=== PATIENT | male | born 1975 | race Caucasian/White ===

== ENCOUNTER 2024-01-30 07:11 | Inpatient (IN) | payer OTHER, SELFPAY ==
[2024-01-30] VITALS (17 sets, daily range): BP systolic 123–153; BP diastolic 79–96; PULSE 60–133; RESP 14–28; TEMP 36.2–37.1; O2SAT 90–98; BMI 32.3; BMI 28.5
--- NOTE | ~2024-01-30 | XR_ITS ---
EXAMINATION: XR CHEST CLINICAL INFORMATION: Shortness of breath. COMPARISON: None available. TECHNIQUE: Frontal view of the chest was obtained. FINDINGS: The lungs are mildly hypoexpanded. Bilateral interstitial prominence. Hazy opacity in the right midlung. Linear streaky opacities in the left lung base. No pleural effusions or pneumothorax. The cardiac mediastinal silhouette is likely within normal limits for technique. Limited evaluation of the thoracic spine secondary to underpenetration. Otherwise no acute osseous abnormality. XR/XR chest 1V IMPRESSION: Bilateral interstitial prominence may reflect mild edema or atypical/viral infection. Hazy opacity in the right midlung may represent developing infectious or inflammatory process. Streaky linear opacities in the left lung base may relate to atelectasis. Electronically signed by: Vladimir Breen MD 01/30/2024 08:16 AM [facility]
--- NOTE | 2024-01-30 07:25 | ED_ITS ---
HPI - Nausea/Vomiting/Diarrhea General Chief complaint: Nausea/Vomiting/Diarrhea Stated complaint: VOMITTING PER EMS Time Seen by Provider: 01/30/24 07:15 Source: EMS Mode of arrival: EMS Limitations: no limitations History of Present Illness HPI Narrative: This is a 48 years old male with history of diabetes presented to emergency department with a chief complaint of nausea vomiting since yesterday. He denies any chest pain denies any fever. MD elicited complaint: nausea and vomiting Onset (ago): day(s) (1) Description of vomiting: watery Description of diarrhea: watery Associated nausea: Yes Associated abdominal pain: No Location of pain: none Pain consistency: constant Related Data Home Medications ?Medication ?Instructions ?Recorded ?Confirmed glipizide 5 mg tablet 5 mg PO BID 01/30/24 01/30/24 insulin glargine 100 unit/mL (3 18 unit subcut BEDTIME 01/30/24 01/30/24 mL) subcutaneous pen (Lantus Solostar U-100 Insulin) Allergies Allergy/AdvReac Type Severity Reaction Status Date / Time Penicillins Allergy Unknown Unknown Verified 01/30/24 07:34 Review of Systems 2 Constitutional: Constitutional: Reports no additional constitutional complaints Cardiovascular: Cardiovascular: Reports no additional cardiovascular complaints Gastrointestinal: Gastrointestinal: Reports nausea [facility] Past Medical History [facility] Narrative: Diabetes Physical Exam 2 Vital Signs: Vital Signs: Last Vital Signs Temp 97.6 F 01/30/24 12:00 Pulse 129 H 01/30/24 12:00 Resp 19 01/30/24 12:00 BP 123/86 01/30/24 12:00 Pulse Ox 98 01/30/24 12:00 O2 Del Method Room Air 01/30/24 12:00 BMI result Body Mass Index 32.3 On exam he looks in [id number] distress Const: General: alert and acute distress Nutritional Appearance: average body habitus Orientation/consciousness: patient oriented x3 HEENT: Head: Yes normal to inspection Face and sinus: Yes normal facial exam Mouth: Normal oral and palatal mucosa present Throat: Yes posterior oropharynx normal Neck: Neck: Yes normal visual inspection Resp: Effort & Inspection: tachypneic Auscultation: clear to auscultation bilaterally Cardio: Jugular venous distension: no JVD Rate: regular rate Rhythm: r egular rhythm GI: Inspection: Yes normal to inspection Palpation (GI): Soft to palpation Auscultation: normal bowel sounds Skin: General skin exam: no rashes or lesions noted Rashes: no rashes Neuro: General: patient oriented x3 Cranial nerves: Yes CN's II-XII intact bilaterally Extrem: General: Yes normal to inspection Course Reevaluation(s) Reevaluation #1: Patient presented in DKA tachycardic tachypneic with metabolic acidosis and elevated anion gap, he was resuscitated with the ringer lactate, he was placed on insulin drip, I discussed the case with the chairman ceo Dr. Menon,he was accepted to ICU Time: 09:10 Medications Administered Generic Name Dose Route Start Last Admin Trade Name Freq PRN Reason Stop Dose Admin Heparin Sodium (Porcine) 5,000 unit 01/30/24 09:00 01/30/24 09:10 Heparin Sodium,Porcine 5,000 Unit/Ml Vial SUBCUT 5,000 unit Q8H CHITO Administration Insulin Human Regular 100 unit in 100 mls @ 8 mls/hr 01/30/24 08:30 01/30/24 11:48 Myxredlin IVCONT 12 unit/hr .[id number] CHITO 12 mls/hr Titration Protocol 8 UNIT/HR Lactated Ringer's 1,000 mls @ 150 mls/hr 01/30/24 09:00 01/30/24 12:09 Lr IVCONT 150 mls/hr .Q6H40M CHITO Administration Potassium Chloride 10 meq in 100 mls @ 100 mls/hr 01/30/24 09:00 01/30/24 12:08 Potassium Chloride/H20 IV 01/30/24 12:59 100 mls/hr Q1H CHITO Administration Ondansetron HCl 4 mg 01/30/24 11:48 01/30/24 12:09 Ondansetron Hcl 4 Mg/2 Ml Vial IVPUSH 4 mg Q6H PRN Administration Nausea and Vomiting Discontinued Medications Generic Name Dose Route Start Last Admin Trade Name Freq PRN Reason Stop Dose Admin Lactated Ringer's 1,000 mls @ 999 mls/hr 01/30/24 07:30 01/30/24 09:21 Lr IV 01/30/24 08:30 Infused .Q1H1M CHITO Infusion Lactated Ringer's 1,000 mls @ 999 mls/hr 01/30/24 07:30 01/30/24 09:21 Lr IV 01/30/24 08:30 Infused .Q1H1M CHITO Infusion Lactated Ringer's 1,000 mls @ 999 mls/hr 01/30/24 09:00 01/30/24 11:08 Lr IV 01/30/24 10:00 Infused .Q1H1M CHITO Infusion Insulin Human Regular 10 unit 01/30/24 07:42 01/30/24 07:53 Insulin Regular, Human 100 Unit/Ml 10 Ml Vial IVPUSH 01/30/24 07:43 10 unit ONCE ONE Administration Potassium Chloride 60 meq 01/30/24 08:55 01/30/24 09:09 Potassium Chloride Packet 20 Meq Packet PO 01/30/24 08:56 60 meq ONCE ONE Administration Medical Decision Making Medical Decision Making [facility] Narrative: Patient is here with a chief complaint of nausea vomiting he has history of diabetes Differential Diagnosis Differential Diagnoses: The differential diagnosis associated with the presentation includes Differential diagnosis diabetes ketoacidosis/gastroenteritis/viral syndrome Admission/Observation Consideration of admission/observation: Escalation of care including admission/observation considered Consult Healthcare Provider ICU attending/EMS Lab Data [facility] Lab Attestation statement: I reviewed the patient's lab results. 01/30/24 07:29 01/30/24 07:29 Labs: Lab Results 01/30/24 01/30/24 01/30/24 Range/Units 07:18 07:29 08:44 WBC 13.8 H (4.8-10.8) X10*3/uL RBC 5.86 H (4.60-5.80) X10*6/uL Hgb 17.3 (14.0-18.0) g/dl Hct 48.7 (42.0-52.0) % MCV 83.1 (80.0-98.0) fL MCH 29.5 (27.0-33.0) pg MCHC 35.5 (31.0-36.0) g/dl RDW 12.1 (11.0-16.0) % Plt Count 290 (160-400) X10*3/uL MPV 10.8 (9.4-12.4) fL Immature Gran % (Auto) 1.7 H (0.0-0.4) % Neut % (Auto) 83.3 H (45-73) % Lymph % (Auto) 7.4 L (20-40) % [place] % (Auto) 7.3 (2-11) % Eos % (Auto) 0.0 (0-4) % Baso % (Auto) 0.3 (0-2) % Lymph # (Auto) 1.0 L (1.2-4.9) X10*3/uL [place] # (Auto) 1.0 (0.1-1.2) X10*3/uL Eos # (Auto) 0.0 (0.0-0.4) X10*3/uL Baso # (Auto) 0.0 (0.0-0.2) X10*3/uL Abs Immat Gran (auto) 0.23 H (0.00-0.03) X10*3/uL Absolute Neuts (auto) 11.5 H (2.0-8.3) x10*3/uL Absolute Nucleated RBC 0.000 (0.0-0.012) X10*3/uL Nucleated RBC % (auto) 0.0 (0.0-0.2) /100WBC Hold Blue Top SEE NOTE VBG pH VBG pCO2 VBG pO2 VBG HCO3 VBG O2 Saturation VBG Base Excess Sodium 134 L (135-145) mmol/L Potassium 3.9 (3.3-5.1) mmol/L Chloride 92 L (96-108) mmol/L Carbon Dioxide 7 L* (22-29) mmol/L Anion Gap 39 H (12-20) BUN 40 H (9-16) mg/dL Creatinine 2.34 H (0.5-1.4) mg/dL Estim Creat Clear Calc 39.8 Estimated GFR 30 POC Glucose 557 H* 506 H* (60-115) mg/dL Random Glucose 605 H* (60-115) mg/dL Calcium 10.8 H (8.4-10.2) mg/dL Total Bilirubin 0.4 (0.0-1.0) mg/dL AST 19 (5-37) U/L ALT < 6 (0-40) U/L Alkaline Phosphatase 81 (39-117) U/L Troponin I High Sens 5.8 (<3.5-35.0) ng/L Total Protein 8.2 H (6.5-8.0) g/dL Albumin 4.1 (3.5-5.0) g/dL Beta-Hydroxybutyrate 11.44 H (0.02-0.27) mmol/L 01/30/24 Range/Units 08:52 WBC (4.8-10.8) X10*3/uL RBC (4.60-5.80) X10*6/uL Hgb (14.0-18.0) g/dl Hct (42.0-52.0) % MCV (80.0-98.0) fL MCH (27.0-33.0) pg MCHC (31.0-36.0) g/dl RDW (11.0-16.0) % Plt Count (160-400) X10*3/uL MPV (9.4-12.4) fL Immature Gran % (Auto) (0.0-0.4) % Neut % (Auto) (45-73) % Lymph % (Auto) (20-40) % [place] % (Auto) (2-11) % Eos % (Auto) (0-4) % Baso % (Auto) (0-2) % Lymph # (Auto) (1.2-4.9) X10*3/uL [place] # (Auto) (0.1-1.2) X10*3/uL Eos # (Auto) (0.0-0.4) X10*3/uL Baso # (Auto) (0.0-0.2) X10*3/uL Abs Immat Gran (auto) (0.00-0.03) X10*3/uL Absolute Neuts (auto) (2.0-8.3) x10*3/uL Absolute Nucleated RBC (0.0-0.012) X10*3/uL Nucleated RBC % (auto) (0.0-0.2) /100WBC Hold Blue Top VBG pH Cancelled VBG pCO2 Cancelled VBG pO2 Cancelled VBG HCO3 Cancelled VBG O2 Saturation Cancelled VBG Base Excess Cancelled Sodium (135-145) mmol/L Potassium (3.3-5.1) mmol/L Chloride (96-108) mmol/L Carbon Dioxide (22-29) mmol/L Anion Gap (12-20) BUN (9-16) mg/dL Creatinine (0.5-1.4) mg/dL Estim Creat Clear Calc Estimated GFR POC Glucose (60-115) mg/dL Random Glucose (60-115) mg/dL Calcium (8.4-10.2) mg/dL Total Bilirubin (0.0-1.0) mg/dL AST (5-37) U/L ALT (0-40) U/L Alkaline Phosphatase (39-117) U/L Troponin I High Sens (<3.5-35.0) ng/L Total Protein (6.5-8.0) g/dL Albumin (3.5-5.0) g/dL Beta-Hydroxybutyrate (0.02-0.27) mmol/L ABG Data Attestation ABG: I personally reviewed and interpreted this ABG as follows: Interpretation: metabolic acidosis Independent Interpretation I performed an independent interpretation of an: EKG Interpretation: Sinus tachycardia rate 129 artifacts no ischemia Independent Historian Clinical information obtained from an independent historian. History obtained from or confirmed by: EMS Chronic Conditions Patient?s care impacted by: Diabetes Critical Care Time Critical Care Time Critical Care Time: Yes Total Critical Care Time: 90 Attestation: DKA requiring fluids resuscitation and Insulin drip Discharge Plan Discharge Clinical Impression: DKA (diabetic ketoacidosis) Qualifiers: Diabetes mellitus type: type 1 Diabetes mellitus complication detail: without coma Qualified Code(s): E10.10 - Type 1 diabetes mellitus with ketoacidosis without coma Patient Disposition: Admitted As Inpatient Interventions: Admission Worksheet (ED) Last Done: 01/30/24 11:19 Discharge Date/Time: 01/30/24 11:36
[2024-01-30] MEDS: Lactated Ringers 1,000 ML 999 ML IV ×3 (07:35→09:22)
[2024-01-30 07:36] LABS: MANUAL DIFF FLAG NO
[2024-01-30 07:38] LABS: Basophils Percent Auto 0.3 % (0-2); Hematocrit 48.7 % (42.0-52.0); Hemoglobin 17.3 g/dl (14.0-18.0); Imm Gran Abs Auto 0.23 X10*3/uL (0.00-0.03); Imm Gran Pct Auto 1.7 % (0.0-0.4); Lymphocytes Percent Auto 7.4 % (20-40); Mean Corpuscular HGB Conc 35.5 g/dl (31.0-36.0); Mean Corpuscular Hemoglobin 29.5 pg (27.0-33.0); Mean Corpuscular Volume 83.1 fL (80.0-98.0); Mean Platelet Volume 10.8 fL (9.4-12.4); Monocytes Percent Auto 7.3 % (2-11); Neutrophils Absolute Auto 11.5 x10*3/uL (2.0-8.3); Neutrophils Percent Auto 83.3 % (45-73); Platelet Count 290 X10*3/uL (160-400); Red Blood Count 5.86 X10*6/uL (4.60-5.80); Red Cell Distribution Width 12.1 % (11.0-16.0); White Blood Count 13.8 X10*3/uL (4.8-10.8)
[2024-01-30 07:38] LABS: Glucose, Whole Blood 557 mg/dL (60-115)
[2024-01-30] MEDS: Insulin Regular, Human 100 UNIT/ML 10 ML VIAL 10 UNIT IVPUSH (07:53)
[2024-01-30 08:02] LABS: Troponin-I High Sensitivity 5.8 ng/L (<3.5-35.0)
[2024-01-30 08:04] LABS: Alanine Aminotransferase < 6 U/L (0-40); Albumin Level 4.1 g/dL (3.5-5.0); Alkaline Phosphatase 81 U/L (39-117); Anion Gap 39 (12-20); Aspartate Amino Transferase 19 U/L (5-37); Bilirubin Total 0.4 mg/dL (0.0-1.0); Blood Urea Nitrogen 40 mg/dL (9-16); Calcium 10.8 mg/dL (8.4-10.2); Carbon Dioxide 7 mmol/L (22-29); Chloride 92 mmol/L (96-108); Creatinine Clr Calc Pharmacy 39.8; Estimated Glomerular Filt Rate 30; Glucose Random 605 mg/dL (60-115); Potassium 3.9 mmol/L (3.3-5.1); Sodium 134 mmol/L (135-145); Total Protein 8.2 g/dL (6.5-8.0)
[2024-01-30 08:48] LABS: Glucose, Whole Blood 506 mg/dL (60-115)
[2024-01-30 08:53] LABS: Beta-Hydroxybutyrate 11.44 mmol/L (0.02-0.27)
[2024-01-30] MEDS: Insulin Regular/NS 100 UNIT/100 ML PLAST..BAG 8 UNIT IVCONT (08:59)
--- NOTE | 2024-01-30 09:04 | ECG_ITS ---
Test Reason : chest pain Blood Pressure : / mmHG Vent. Rate : 129 BPM Atrial Rate : 129 BPM P-R Int : 138 ms QRS Dur : 090 ms QT Int : 306 ms P-R-T Axes : 039 030 -53 degrees QTc Int : 448 ms Sinus tachycardia T wave abnormality, consider inferolateral ischemia Abnormal ECG No previous ECGs available Referred By: Trevor Brian Electronically Signed By:Aron Puente
[2024-01-30] MEDS: Potassium Chloride Packet 20 MEQ PACKET 60 MEQ PO (09:09)
[2024-01-30] MEDS: Heparin Sodium,Porcine 5,000 UNIT/ML VIAL 5000 UNIT SUBCUT ×2 (09:10→16:22)
[2024-01-30 09:11] LABS: VBG Base Excess -16.4 mmol/L; VBG HCO3 8 mmol/L (22-26); VBG pCO2 20 mmHg; VBG pH 7.22 (7.32-7.43); VBG pO2 47 mmHg
[2024-01-30] MEDS: Potassium Chloride/H20 10 MEQ/100 ML PIGGYBACK 100 MEQ IV ×4 (09:18→14:05)
[2024-01-30 09:32] LABS: Glucose, Whole Blood 448 mg/dL (60-115)
[2024-01-30 09:51] LABS: Venous Blood Gas Refer to POC result
[2024-01-30 10:36] LABS: Glucose, Whole Blood 352 mg/dL (60-115)
--- NOTE | 2024-01-30 10:41 | PC.NURSE ---
Call placed to [facility] FARMERREJI De La Torre for RN to RN report at approx. 1020a. REJI De La Torre unable to take report at this time. Awaiting call back.
--- NOTE | 2024-01-30 11:05 | P.HPCC_ITS ---
History of Present Illness Date of Service: 01/30/24 Chief Complaint: Diabetic ketoacidosis 48-year-old gentleman with underlying history of diabetes mellitus had an upper respiratory infection over the last week presented 2D to ER complaining 2 day history of nausea and vomiting. On ER evaluation patient with metabolic acidosis with hyperglycemia, and elevated hydroxybutyrate. Started on insulin drip and admitted to intensive care unit. Review of Systems 2 Constitutional: Constitutional: Denies daytime sleepiness, Denies excessive sweating, Denies fatigue, Denies fever(s), Denies lethargy, Denies malaise, Denies night sweats, Denies snoring and Denies weight loss Eyes: Eyes: Denies blurry vision and Denies itchy eyes ENT: Denies nasal congestion, Denies post nasal drip, Denies sinus pain, Denies sinus pressure and Denies other ( Thrush) Cardiovascular: Cardiovascular: Denies chest pain, Denies pedal edema, Denies dyspnea, Denies orthopnea and Denies paroxysmal nocturnal dyspnea Respiratory: Respiratory: Denies cough, Denies hemoptysis, Denies excessive phlegm production, Denies dyspnea, Denies snoring and Reports wheezing Gastrointestinal: Gastrointestinal: Denies abdominal pain, Denies heartburn, Reports nausea and Reports vomiting Musculoskeletal: Musculoskeletal: Denies myalgias, Denies arthralgias and Denies joint swelling Integumentary/Breasts: Skin/Breast: Denies rash Neurologic: Denies memory loss and Denies seizure-like activity Psychiatric: Psychiatric: Denies abnormal sleep pattern, Denies anxiety and Denies memory loss Endocrine: Endocrine: Denies excessive sweating, Denies fatigue and Denies heat intolerance Hematologic/Lymphatic: Hematologic/Lymphatic: Denies easy bruising Allergic/Immunologic: Allergic/Immunologic: Denies itchy eyes, Denies seasonal rhinorrhea and Reports wheezing PMFSH Social History Social History Smoked in Last 30 Days: No Use of substances other than those prescribed or required for medical reasons: No Advance Directives: No Advance Directives Information Provided: Yes Do you have a plan to hurt others: No Plan Meds Allergies Allergy/AdvReac Type Severity Reaction Status Date / Time Penicillins Allergy Unknown Unknown Verified 01/30/24 07:34 Active Medications: Current Medications Heparin Sodium (Porcine) (Heparin Sodium,Porcine 5,000 Unit/Ml Vial) 5,000 unit SUBCUT Q8H [facility] Last Admin: 01/30/24 09:10 Dose: 5,000 unit Insulin Human Regular (Myxredlin) 100 unit in 100 mls @ 8 mls/hr IVCONT .[id number] [facility]; Protocol Last Admin: 01/30/24 08:59 Dose: 8 unit/hr, 8 mls/hr Dextrose (D10) 250 mls @ 750 mls/hr IV Q30M PRN PRN Reason: BG <70 Lactated Ringer's (Lr) 1,000 mls @ 150 mls/hr IVCONT .Q6H40M [facility] Potassium Chloride (Potassium Chloride/H20) 10 meq in 100 mls @ 100 mls/hr IV Q1H [facility] Stop: 01/30/24 12:59 Last Admin: 01/30/24 09:18 Dose: 100 mls/hr Home Medications ?Medication ?Instructions ?Recorded ?Confirmed ?Last Taken ?Type albuterol sulfate 90 mcg/actuation 2 puff inhalation QID 01/30/24 Unknown History aerosol inhaler azithromycin 250 mg tablet 250 mg PO DAILY 01/30/24 Unknown History benzonatate 200 mg capsule 200 mg PO TID PRN cough 01/30/24 Unknown History desloratadine 5 mg tablet 5 mg PO DAILY 01/30/24 Unknown History glipizide 5 mg tablet 5 mg PO BID 01/30/24 Unknown History insulin glargine 100 unit/mL (3 18 unit subcut BEDTIME 01/30/24 Unknown History mL) subcutaneous pen (Lantus Solostar U-100 Insulin) Physical Exam 2 Vital Signs: Vital Signs: Last Vital Signs Temp 97.2 F 01/30/24 10:25 Pulse 133 H 01/30/24 10:25 Resp 19 01/30/24 10:25 BP 136/80 01/30/24 10:25 Pulse Ox 92 01/30/24 10:25 O2 Del Method Room Air 01/30/24 10:25 BMI result Body Mass Index 32.3 Const: General: no acute distress and alert Nutritional Appearance: not obese Orientation/consciousness: Other orientation findings ( oriented) HEENT: Head: Yes atraumatic Eyes: General: appearance normal, both eyes and all related structures S clerae: sclerae normal EOM: EOMs intact bilaterally Neck: Neck: Yes supple Lymphatic: no lymphadenopathy noted Resp: Effort & Inspection: normal respiratory effort and no use of accessory muscles Auscultation: clear to auscultation bilaterally Cardio: Rate: regular rate Rhythm: regular rhythm Heart sounds: no gallops, no murmurs and no rubs Skin: General skin exam: other ( warm) Extrem: General: No clubbing, No cyanosis and No edema Results Labs 01/30/24 07:29 01/30/24 07:29 Labs: Laboratory Results - last 24 hr 01/30/24 01/30/24 01/30/24 07:18 07:29 08:44 MCV 83.1 MCH 29.5 MCHC 35.5 RDW 12.1 Plt Count 290 MPV 10.8 Immature Gran % (Auto) 1.7 H Neut % (Auto) 83.3 H Lymph % (Auto) 7.4 L [place] % (Auto) 7.3 Eos % (Auto) 0.0 Baso % (Auto) 0.3 Lymph # (Auto) 1.0 L [place] # (Auto) 1.0 Eos # (Auto) 0.0 Baso # (Auto) 0.0 Abs Immat Gran (auto) 0.23 H Absolute Neuts (auto) 11.5 H Absolute Nucleated RBC 0.000 Nucleated RBC % (auto) 0.0 Hold Blue Top SEE NOTE VBG pH VBG pCO2 VBG pO2 VBG HCO3 VBG O2 Saturation VBG Base Excess Anion Gap 39 H Estim Creat Clear Calc 39.8 Estimated GFR 30 POC Glucose 557 H* 506 H* Random Glucose 605 H* Calcium 10.8 H Total Bilirubin 0.4 AST 19 ALT < 6 Alkaline Phosphatase 81 Troponin I High Sens 5.8 Total Protein 8.2 H Albumin 4.1 Beta-Hydroxybutyrate 11.44 H 01/30/24 01/30/24 01/30/24 08:52 09:02 09:28 MCV MCH MCHC RDW Plt Count MPV Immature Gran % (Auto) Neut % (Auto) Lymph % (Auto) [place] % (Auto) Eos % (Auto) Baso % (Auto) Lymph # (Auto) [place] # (Auto) Eos # (Auto) Baso # (Auto) Abs Immat Gran (auto) Absolute Neuts (auto) Absolute Nucleated RBC Nucleated RBC % (auto) Hold Blue Top VBG pH Cancelled 7.22 L VBG pCO2 Cancelled 20 VBG pO2 Cancelled 47 VBG HCO3 Cancelled 8 L VBG O2 Saturation Cancelled 77.0 VBG Base Excess Cancelled -16.4 Anion Gap Estim Creat Clear Calc Estimated GFR POC Glucose 448 H* Random Glucose Calcium Total Bilirubin AST ALT Alkaline Phosphatase Troponin I High Sens Total Protein Albumin Beta-Hydroxybutyrate 01/30/24 10:23 MCV MCH MCHC RDW Plt Count MPV Immature Gran % (Auto) Neut % (Auto) Lymph % (Auto) [place] % (Auto) Eos % (Auto) Baso % (Auto) Lymph # (Auto) [place] # (Auto) Eos # (Auto) Baso # (Auto) Abs Immat Gran (auto) Absolute Neuts (auto) Absolute Nucleated RBC Nucleated RBC % (auto) Hold Blue Top VBG pH VBG pCO2 VBG pO2 VBG HCO3 VBG O2 Saturation VBG Base Excess Anion Gap Estim Creat Clear Calc Estimated GFR POC Glucose 352 H* Random Glucose Calcium Total Bilirubin AST ALT Alkaline Phosphatase Troponin I High Sens Total Protein Albumin Beta-Hydroxybutyrate Imaging Radiologist's Impressions: Impressions Chest X-Ray 01/30/24 07:18 IMPRESSION: Bilateral interstitial prominence may reflect mild edema or atypical/viral infection. Hazy opacity in the right midlung may represent developing infectious or inflammatory process. Streaky linear opacities in the left lung base may relate to atelectasis. Electronically signed by: Vladimir Breen MD 01/30/2024 08:16 AM [facility] [place] and Plan (1) DKA (diabetic ketoacidosis): Qualifiers: Diabetes mellitus complication detail: without coma Diabetes mellitus type: type 1 Qualified Code(s): E10.10 - Type 1 diabetes mellitus with ketoacidosis without coma Status: Acute (2) Upper respiratory infection: Status: Acute Plan Assessment: 48-year-old gentleman with underlying diabetes mellitus admitted with diabetic ketoacidosis on the background of upper respiratory infection. Plan: Neuro: No acute issues. Cardiac: No acute issues. Pulmonary: Upper respiratory infection, viral panel is pending. Renal: No acute issues. Endo: Diabetic ketoacidosis, continue to titrate off insulin drip as tolerated. GI: No acute issues. ID: No acute issues Heme/Onc: No acute issues. Psych: No acute issues. Miscellaneous: No acute issues. Prophylaxis: Heparin Diet: NPO
--- NOTE | 2024-01-30 11:27 | PHA.MEDREC ---
Addendum entered by Pastora Alan RPh 01/30/24 11:40: reviewed by [facility]. Original Note: Pharmacy Consult ? Medication Reconciliation Pharmacy has completed the medication reconciliation. Spoke to patient to confirm med list. Patient states he only took one day of the medication that was given to him on 01/26/24 Azithromycin 250 mg, Benzonate 200 mg and Deloratadine 5 mg. Patient states he was to week to take them. Patient confirmed his is only on Glipizide 5 mg and Lantus SoloStar U-100 18 units at bedtime , however he hasn't took them in over two weeks because he was to week to take them.
[2024-01-30 11:50] LABS: Glucose, Whole Blood 345 mg/dL (60-115)
[2024-01-30] MEDS: Lactated Ringers 1,000 ML 150 ML IVCONT (12:09)
[2024-01-30] MEDS: ondansetron HCL 4 MG/2 ML VIAL IVPUSH ×2 (12:09→17:22)
[2024-01-30 13:02] LABS: Glucose, Whole Blood 324 mg/dL (60-115)
[2024-01-30] MEDS: Calcium Carbonate 750 MG TAB.CHEW PO ×2 (13:57→17:08)
[2024-01-30 14:09] LABS: Glucose, Whole Blood 218 mg/dL (60-115)
[2024-01-30 14:30] LABS: Anion Gap 24 (12-20); Blood Urea Nitrogen 34 mg/dL (9-16); Calcium 10.6 mg/dL (8.4-10.2); Carbon Dioxide 13 mmol/L (22-29); Chloride 104 mmol/L (96-108); Creatinine Clr Calc Pharmacy 49.6; Estimated Glomerular Filt Rate 41; Glucose Random 266 mg/dL (60-115); Potassium 3.3 mmol/L (3.3-5.1); Sodium 138 mmol/L (135-145)
[2024-01-30 15:01] LABS: Glucose, Whole Blood 179 mg/dL (60-115)
[2024-01-30 15:06] LABS: MANUAL DIFF FLAG NO
[2024-01-30 15:10] LABS: Basophils Percent Auto 0.1 % (0-2); Hematocrit 39.6 % (42.0-52.0); Hemoglobin 14.7 g/dl (14.0-18.0); Imm Gran Abs Auto 0.11 X10*3/uL (0.00-0.03); Imm Gran Pct Auto 0.9 % (0.0-0.4); Lymphocytes Absolute Auto 0.6 X10*3/uL (1.2-4.9); Lymphocytes Percent Auto 4.9 % (20-40); Mean Corpuscular HGB Conc 37.1 g/dl (31.0-36.0); Mean Corpuscular Hemoglobin 29.8 pg (27.0-33.0); Mean Corpuscular Volume 80.3 fL (80.0-98.0); Monocytes Absolute Auto 1.1 X10*3/uL (0.1-1.2); Monocytes Percent Auto 8.2 % (2-11); Neutrophils Percent Auto 85.9 % (45-73); Platelet Count 223 X10*3/uL (160-400); Red Blood Count 4.93 X10*6/uL (4.60-5.80); Red Cell Distribution Width 11.9 % (11.0-16.0); White Blood Count 12.9 X10*3/uL (4.8-10.8)
[2024-01-30] MEDS: Dextrose 5 % and Lactated Ring 1,000 ML 150 ML IVCONT (15:51)
[2024-01-30] MEDS: Potassium Chloride ER 20 MEQ TAB.ER.PRT 60 MEQ PO (16:04)
[2024-01-30 16:06] LABS: Glucose, Whole Blood 146 mg/dL (60-115)
[2024-01-30 16:55] LABS: Glucose, Whole Blood 141 mg/dL (60-115)
--- NOTE | 2024-01-30 17:04 | PC.NURSE ---
Patient admitted to ICU, room 260, at 1140 am, for DKA. Patient vomited x 3, 200 mL +, question coffee ground vs brown bile - Dr Menon made aware of emesis color, CBC ordered to check for blood loss - results reported. Dr Menon aware of vomiting, also ordered PRN zofran - given per MAY. Some effectiveness noted, vomited x1 after receiving zofran, but otherwise resting more. Patient also given PRN antacid as well. Patient also incont of small amt gelatinous/light brown stool - full care given. HR low 130s, ST, Dr Menon aware of HR - started IV fluids when received on floor. Insulin drip running per MAY, no S/S hypoglycemia. Electrolyte labs redrawn at approx 1400, results reported to Dr Menon, ordered more potassium and changed IV fluids to D5LR now that patient blood sugar < 200 - per EMAR. Report given to Roxane MENDOZA at approx 1500.
[2024-01-30 17:35] LABS: Influenza A PCR NEGATIVE (Negative); Influenza B PCR NEGATIVE (Negative); Resp Syncy Virus RNA Qual PCR NEGATIVE (Negative); SARS COV2 PCR INHOUSE POSITIVE (Negative)
[2024-01-30 17:59] LABS: Glucose, Whole Blood 165 mg/dL (60-115)
[2024-01-30 18:54] LABS: Glucose, Whole Blood 171 mg/dL (60-115)
[2024-01-30 19:56] LABS: Glucose, Whole Blood 183 mg/dL (60-115)
[2024-01-30 20:16] LABS: MANUAL DIFF FLAG NO
[2024-01-30 20:26] LABS: Basophils Percent Auto 0.1 % (0-2); Hematocrit 35.9 % (42.0-52.0); Hemoglobin 13.3 g/dl (14.0-18.0); Imm Gran Abs Auto 0.05 X10*3/uL (0.00-0.03); Imm Gran Pct Auto 0.5 % (0.0-0.4); Lymphocytes Absolute Auto 0.7 X10*3/uL (1.2-4.9); Lymphocytes Percent Auto 6.8 % (20-40); Mean Corpuscular Hemoglobin 29.8 pg (27.0-33.0); Mean Corpuscular Volume 80.5 fL (80.0-98.0); Monocytes Absolute Auto 0.8 X10*3/uL (0.1-1.2); Monocytes Percent Auto 8.4 % (2-11); Neutrophils Percent Auto 84.2 % (45-73); Platelet Count 199 X10*3/uL (160-400); Red Blood Count 4.46 X10*6/uL (4.60-5.80); Red Cell Distribution Width 11.9 % (11.0-16.0); White Blood Count 9.5 X10*3/uL (4.8-10.8)
[2024-01-30 20:39] LABS: Anion Gap 14 (12-20); Blood Urea Nitrogen 27 mg/dL (9-16); Calcium 9.9 mg/dL (8.4-10.2); Carbon Dioxide 21 mmol/L (22-29); Chloride 107 mmol/L (96-108); Creatinine Clr Calc Pharmacy 64.1; Estimated Glomerular Filt Rate 55; Glucose Random 195 mg/dL (60-115); Magnesium 1.9 mg/dL (1.6-2.6); Phosphorus 1.4 mg/dL (2.7-4.5); Potassium 3.3 mmol/L (3.3-5.1); Sodium 139 mmol/L (135-145)
[2024-01-30 20:57] LABS: Glucose, Whole Blood 192 mg/dL (60-115)
[2024-01-30] MEDS: Potassium Phosphate/NS 15 MMOL/250 ML PLAST..BAG 62.5 MMOL IV (21:03)
[2024-01-30] MEDS: Pseudoephedrine HCL 30 MG TABLET PO (21:04)
[2024-01-30] MEDS: Insulin Regular/NS 100 UNIT/100 ML PLAST..BAG IVCONT (21:05)
[2024-01-30 21:59] LABS: Glucose, Whole Blood 172 mg/dL (60-115)
[2024-01-30] MEDS: KCl 40 mEq in 5% Dex/0.45% Sod 40 MEQ/1,000 ML IV.SOLN 150 MEQ IVCONT (21:59)
[2024-01-30] MEDS: Pantoprazole Sodium 40 MG/10 ML VIAL IVPUSH (22:00)
[2024-01-30] MEDS: Metoclopramide HCl 10 MG/2 ML VIAL IVPUSH (22:00)
[2024-01-30 23:11] LABS: Glucose, Whole Blood 170 mg/dL (60-115)
[2024-01-31] VITALS (24 sets, daily range): BP systolic 130–166; BP diastolic 78–99; PULSE 98–124; RESP 14–22; TEMP 36.6–36.9; O2SAT 90–100; BMI 28.6
[2024-01-31 01:10] LABS: Glucose, Whole Blood 137 mg/dL (60-115)
[2024-01-31 03:07] LABS: Glucose, Whole Blood 150 mg/dL (60-115)
[2024-01-31] MEDS: Dextrose 5 % and Lactated Ring 1,000 ML 150 ML IVCONT (04:50)
[2024-01-31 05:02] LABS: Glucose, Whole Blood 176 mg/dL (60-115)
[2024-01-31 05:38] LABS: VBG Base Excess 0.6 mmol/L; VBG HCO3 22 mmol/L (22-26); VBG pCO2 27 mmHg; VBG pH 7.52 (7.32-7.43); VBG pO2 66 mmHg
[2024-01-31 05:42] LABS: Venous Blood Gas Refer to POC result
[2024-01-31 06:04] LABS: MANUAL DIFF FLAG NO
[2024-01-31] MEDS: Pantoprazole Sodium 40 MG/10 ML VIAL IVPUSH ×2 (06:07→16:57)
[2024-01-31 06:08] LABS: Basophils Percent Auto 0.1 % (0-2); Hematocrit 37.2 % (42.0-52.0); Hemoglobin 13.1 g/dl (14.0-18.0); Imm Gran Abs Auto 0.04 X10*3/uL (0.00-0.03); Imm Gran Pct Auto 0.4 % (0.0-0.4); Lymphocytes Absolute Auto 0.5 X10*3/uL (1.2-4.9); Lymphocytes Percent Auto 5.7 % (20-40); Mean Corpuscular HGB Conc 35.2 g/dl (31.0-36.0); Mean Corpuscular Hemoglobin 29.2 pg (27.0-33.0); Mean Platelet Volume 10.1 fL (9.4-12.4); Monocytes Absolute Auto 0.7 X10*3/uL (0.1-1.2); Monocytes Percent Auto 6.9 % (2-11); Neutrophils Absolute Auto 8.2 x10*3/uL (2.0-8.3); Neutrophils Percent Auto 86.9 % (45-73); Platelet Count 201 X10*3/uL (160-400); Red Blood Count 4.48 X10*6/uL (4.60-5.80); White Blood Count 9.5 X10*3/uL (4.8-10.8)
[2024-01-31 06:29] LABS: Albumin Level 2.9 g/dL (3.5-5.0); Anion Gap 12 (12-20); Blood Urea Nitrogen 21 mg/dL (9-16); Calcium 9.5 mg/dL (8.4-10.2); Carbon Dioxide 21 mmol/L (22-29); Chloride 110 mmol/L (96-108); Creatinine Clr Calc Pharmacy 72.6; Estimated Glomerular Filt Rate > 60; Glucose Random 186 mg/dL (60-115); Magnesium 1.9 mg/dL (1.6-2.6); Phosphorus 1.3 mg/dL (2.7-4.5); Potassium 3.5 mmol/L (3.3-5.1); Sodium 139 mmol/L (135-145)
[2024-01-31] MEDS: Insulin Glargine,Hum.rec.anlog 100 UNIT/ML 10 ML VIAL 18 UNIT SUBCUT (06:44)
[2024-01-31 06:50] LABS: OBS Int Ctl Valid YES; OBS1 POSITIVE (NEGATIVE)
[2024-01-31 07:27] LABS: Glucose, Whole Blood 179 mg/dL (60-115)
[2024-01-31] MEDS: Albumin Human 25 % 100 ML IV ×3 (07:46→22:48)
[2024-01-31] MEDS: Potassium Phosphate/NS 15 MMOL/250 ML PLAST..BAG 62.5 MMOL IV ×2 (07:46→12:06)
--- NOTE | 2024-01-31 08:11 | P.CNGI_ITS ---
History of Present Illness Data of Consult Service Date: 01/31/24 Requesting physician: Tremayne Menon Primary Care Provider: None Physician HPI Reason for consult: anemia 48 yr old m with hx of DM who I am asked to see for assessment for anemia Patient had been SOB with dry cough for 1 week with fevers and chills. He was given erythromycin but this made no difference and he was feeling worse. He came to the hospital and was then admitted due to nausea and non bloody emesis and DKA. He was noted to be COVID positive. He also had mild anemia. He denies rectal bleeding, melena, or epistaxis, hematuria. He has never had a colonoscopy. Does not use NSAIDS or aspirin except for occasional headache. He has no abdominal pain. Review of Systems 2 Review of Systems: Constitutional : No Weight loss, No Fever, No Chills ENT/Mouth : No sore throat, No Rhinorrhea Eyes: No Swelling, No Redness Cardiovascular : No Chest Pain, + SOB, No Edema Respiratory : No Cough, No Sputum, No Wheezing Gastrointestinal : see HPI Genitourinary : NO Dysuria, No Urinary Frequency, No Hematuria, No Urgency Musculoskeletal : No joint pain, No Myalgias, No Joint Swelling Skin : No Skin Lesions, No rash Neuro : No Weakness, No Numbness, No Dizziness, No Headache Psych : No Anxiety/Panic, No Depression Heme/Lymph: No Bruising, No Lymphadenopathy Endocrine : No Polyuria, No Polydipsia All other systems reviewed and are negative. [facility] Past Medical History Medical History (Updated 01/31/24 @ 09:23 by Sha Marcano MD) Diabetes 1.5, managed as type 2 Family History Pertinent family history: no FH of CRC, ulcers Surgical History Surgical History H/O oral surgery Social History Social History Household Members: Significant Other Housing: House Do you presently have visiting nurse or other home services: No Patient Tobacco Use Status: Never used Tobacco Meds Allergies Allergy/AdvReac Type Severity Reaction Status Date / Time Penicillins Allergy Unknown Unknown Verified 01/30/24 07:34 Active Medications: Current Medications Calcium Carbonate (Calcium Carbonate 750 Mg Tab.Chew) 750 mg PO Q4H PRN PRN Reason: Heartburn Last Admin: 01/30/24 17:08 Dose: 750 mg Guaifenesin/Dextromethorphan (Guaifenesin Dm 200/20/10 Ml 10 Ml Syrup) 10 ml PO Q4H PRN PRN Reason: Cough Heparin Sodium (Porcine) (Heparin Sodium,Porcine 5,000 Unit/Ml Vial) 5,000 unit SUBCUT Q8H [facility] Last Admin: 01/31/24 00:49 Dose: Not Given Dextrose (D10) 250 mls @ 750 mls/hr IV Q30M PRN PRN Reason: BG <70 Potassium Phosphate (Kphos) 15 mmol in 250 mls @ 62.5 mls/hr IV Q4H [facility] Stop: 01/31/24 15:59 Last Admin: 01/31/24 07:46 Dose: 62.5 mls/hr Albumin Human (Kedbumin 25 %) 100 mls @ 100 mls/hr IV Q6H [facility] Stop: 02/01/24 02:59 Last Admin: 01/31/24 07:46 Dose: 100 mls/hr Insulin Human Lispro (Insulin Lispro 100 Unit/Ml 3 Ml Vial) 0 unit SUBCUT QIDACHS [facility]; Protocol Ondansetron HCl (Ondansetron Hcl 4 Mg/2 Ml Vial) 4 mg IVPUSH Q6H PRN PRN Reason: Nausea and Vomiting Last Admin: 01/30/24 17:22 Dose: 4 mg Pantoprazole Sodium (Pantoprazole Sodium 40 Mg/10 Ml Vial) 40 mg IVPUSH BID@0630,1630 [facility] Last Admin: 01/31/24 06:07 Dose: 40 mg Home Medications ?Medication ?Instructions ?Recorded ?Confirmed ?Last Taken ?Type glipizide 5 mg tablet 5 mg PO BID 01/30/24 01/30/24 Unknown History insulin glargine 100 unit/mL (3 18 unit subcut BEDTIME 01/30/24 01/30/24 Unknown History mL) subcutaneous pen (Lantus Solostar U-100 Insulin) Physical Exam 2 Vital Signs: Vital Signs: Last Vital Signs Temp 98.0 F 01/31/24 03:31 Pulse 117 H 01/31/24 07:00 Resp 18 01/31/24 07:00 BP 157/97 H 01/31/24 07:00 Pulse Ox 93 11/12/24 07:00 O2 Del Method Nasal Cannula 01/31/24 07:00 O2 Flow Rate 2 01/31/24 07:00 BMI result Body Mass Index 28.6 EXAM: GENERAL: The patient is well developed and nontoxic. mildly dyspnea -on oxygen VITAL SIGNS:see workflow HEENT: Nonicteric sclerae, PERRLA, EOMI. Oropharynx clear. Moist mucous membranes. Conjunctivae appear well perfused. No thyroid mass. CHEST: Chest wall is nontender. HEART: Regular rate and rhythm without murmurs. LUNGS: Clear to auscultation bilaterally. ABDOMEN: Soft, positive bowel sounds, nontender, no organomegaly.no flank tenderness, small umbilical hernia noted SKIN: No rash, no excessive bruising, petechiae, or purpura. NEUROLOGIC: Cranial nerves II-XII intact without motor/sensory deficit. Psych: normal affect Results Labs 01/31/24 05:33 01/31/24 05:33 Labs: Short CBC 01/30/24 01/30/24 01/31/24 Range/Units 15:02 20:10 05:33 WBC 12.9 H 9.5 9.5 (4.8-10.8) X10*3/uL Hgb 14.7 13.3 L 13.1 L (14.0-18.0) g/dl Hct 39.6 L 35.9 L 37.2 L (42.0-52.0) % Plt Count 223 199 201 (160-400) X10*3/uL BMP 01/30/24 01/30/24 01/31/24 13:59 20:10 05:33 Sodium 138 139 139 Potassium 3.3 3.3 3.5 Chloride 104 107 110 H Carbon Dioxide 13 L 21 L 21 L BUN 34 H 27 H 21 H Creatinine 1.77 H 1.37 1.21 Calcium 10.6 H 9.9 D 9.5 Liver Function 01/30/24 01/31/24 Range/Units 20:10 05:33 Albumin 3.0 L 2.9 L (3.5-5.0) g/dL Imaging Chest x-ray: Attestation: I personally reviewed and interpreted this imaging study as follows: (mild interstitial prominences ) Assessment and Plan (1) Anemia: Qualifiers: Anemia type: unspecified type Qualified Code(s): D64.9 - Anemia, unspecified Status: Acute Plan 1/ Anemia, no overt bleeding, suspect the first few HGB numbers were due to dehydration and hemoconcentration, now seems stable. COVID positive. PLAN: 1/ If no overt GIB then can cont to monitor, and early u/p EGD, colonoscopy once he recovers from the covid 2/ check iron, b12, folate Procedures Date of Service Date of Service: 01/31/24
[2024-01-31] MEDS: Insulin Lispro 100 UNIT/ML 3 ML VIAL SUBCUT ×4 (08:24→22:48)
[2024-01-31] MEDS: Acetaminophen 325 MG TABLET 650 MG PO (08:34)
--- NOTE | 2024-01-31 10:06 | PM.CCPN ---
Subjective Subjective Date of Service: 01/31/24 Interval History: 48-year-old gentleman with underlying history of diabetes mellitus had an upper respiratory infection over the last week presented 2D to ER complaining 2 day history of nausea and vomiting. On ER evaluation patient with metabolic acidosis with hyperglycemia, and elevated hydroxybutyrate. Started on insulin drip and admitted to intensive care unit. Also noted to be COVID-19 positive. Overnight with an episode of small amount of coffee-ground emesis. Evaluated by gastroenterology service with no procedure planned. Critical Care Time (minutes): 0 Physical Exam Vital Signs: Vital Signs: Last Vital Signs Temp 98.1 F 01/31/24 08:00 Pulse 117 H 01/31/24 09:00 Resp 20 01/31/24 09:00 BP 160/97 H 01/31/24 09:00 Pulse Ox 95 01/31/24 09:00 O2 Del Method Nasal Cannula 01/31/24 09:00 O2 Flow Rate 4 01/31/24 09:00 BMI result Body Mass Index 28.6 Const: General: no acute distress, alert and awake Eyes: Sclerae: sclerae normal EOM: EOMs intact bilaterally Neck: Neck: Yes no lymphadenopathy, Yes trachea midline and Yes supple Resp: Effort & Inspection: normal respiratory effort and no respiratory distress Auscultation: clear to auscultation bilaterally Cardio: Rate: tachycardic Rhythm: regular rhythm Heart sounds: no gallops, no murmurs and no rubs GI: Palpation (GI): Soft to palpation and Other GI palpation findings present ( Nontender) Auscultation: normal bowel sounds Extrem: General: Yes no pedal edema, No clubbing and No cyanosis Objective Data Labs 01/31/24 05:33 01/31/24 05:33 Labs: Laboratory Results - last 24 hr 01/30/24 01/30/24 01/30/24 10:23 11:45 12:56 WBC RBC Hgb Hct MCV MCH MCHC RDW Plt Count MPV Immature Gran % (Auto) Neut % (Auto) Lymph % (Auto) [place] % (Auto) Eos % (Auto) Baso % (Auto) Lymph # (Auto) [place] # (Auto) Eos # (Auto) Baso # (Auto) Abs Immat Gran (auto) Absolute Neuts (auto) Absolute Nucleated RBC Nucleated RBC % (auto) Hold Purple Top VBG pH VBG pCO2 VBG pO2 VBG HCO3 VBG O2 Saturation VBG Base Excess Sodium Potassium Chloride Carbon Dioxide Anion Gap BUN Creatinine Estim Creat Clear Calc Estimated GFR POC Glucose 352 H* 345 H 324 H Random Glucose Calcium Phosphorus Magnesium Albumin Stool Occult Blood Influenza Type A (PCR) Influenza Type B (PCR) RSV RNA Qual (PCR) SARS-CoV-2 RNA (RT-PCR) 01/30/24 01/30/24 01/30/24 13:59 14:06 14:56 WBC RBC Hgb Hct MCV MCH MCHC RDW Plt Count MPV Immature Gran % (Auto) Neut % (Auto) Lymph % (Auto) [place] % (Auto) Eos % (Auto) Baso % (Auto) Lymph # (Auto) [place] # (Auto) Eos # (Auto) Baso # (Auto) Abs Immat Gran (auto) Absolute Neuts (auto) Absolute Nucleated RBC Nucleated RBC % (auto) Hold Purple Top VBG pH VBG pCO2 VBG pO2 VBG HCO3 VBG O2 Saturation VBG Base Excess Sodium 138 Potassium 3.3 Chloride 104 Carbon Dioxide 13 L Anion Gap 24 H BUN 34 H Creatinine 1.77 H Estim Creat Clear Calc 49.6 Estimated GFR 41 POC Glucose 218 H 179 H Random Glucose 266 H Calcium 10.6 H Phosphorus Magnesium Albumin Stool Occult Blood Influenza Type A (PCR) Influenza Type B (PCR) RSV RNA Qual (PCR) SARS-CoV-2 RNA (RT-PCR) 01/30/24 01/30/24 01/30/24 15:02 16:00 16:42 WBC 12.9 H RBC 4.93 Hgb 14.7 Hct 39.6 L MCV 80.3 MCH 29.8 MCHC 37.1 H RDW 11.9 Plt Count 223 MPV 10.0 Immature Gran % (Auto) 0.9 H Neut % (Auto) 85.9 H Lymph % (Auto) 4.9 L [place] % (Auto) 8.2 Eos % (Auto) 0.0 Baso % (Auto) 0.1 Lymph # (Auto) 0.6 L [place] # (Auto) 1.1 Eos # (Auto) 0.0 Baso # (Auto) 0.0 Abs Immat Gran (auto) 0.11 H Absolute Neuts (auto) 11.0 H Absolute Nucleated RBC 0.000 Nucleated RBC % (auto) 0.0 Hold Purple Top VBG pH VBG pCO2 VBG pO2 VBG HCO3 VBG O2 Saturation VBG Base Excess Sodium Potassium Chloride Carbon Dioxide Anion Gap BUN Creatinine Estim Creat Clear Calc Estimated GFR POC Glucose 146 H Random Glucose Calcium Phosphorus Magnesium Albumin Stool Occult Blood Influenza Type A (PCR) NEGATIVE Influenza Type B (PCR) NEGATIVE RSV RNA Qual (PCR) NEGATIVE SARS-CoV-2 RNA (RT-PCR) POSITIVE A 01/30/24 01/30/24 01/30/24 16:51 17:56 18:51 WBC RBC Hgb Hct MCV MCH MCHC RDW Plt Count MPV Immature Gran % (Auto) Neut % (Auto) Lymph % (Auto) [place] % (Auto) Eos % (Auto) Baso % (Auto) Lymph # (Auto) [place] # (Auto) Eos # (Auto) Baso # (Auto) Abs Immat Gran (auto) Absolute Neuts (auto) Absolute Nucleated RBC Nucleated RBC % (auto) Hold Purple Top VBG pH VBG pCO2 VBG pO2 VBG HCO3 VBG O2 Saturation VBG Base Excess Sodium Potassium Chloride Carbon Dioxide Anion Gap BUN Creatinine Estim Creat Clear Calc Estimated GFR POC Glucose 141 H 165 H 171 H Random Glucose Calcium Phosphorus Magnesium Albumin Stool Occult Blood Influenza Type A (PCR) Influenza Type B (PCR) RSV RNA Qual (PCR) SARS-CoV-2 RNA (RT-PCR) 01/30/24 01/30/24 01/30/24 19:52 20:10 20:54 WBC 9.5 RBC 4.46 L Hgb 13.3 L Hct 35.9 L MCV 80.5 MCH 29.8 MCHC 37.0 H RDW 11.9 Plt Count 199 MPV 10.0 Immature Gran % (Auto) 0.5 H Neut % (Auto) 84.2 H Lymph % (Auto) 6.8 L [place] % (Auto) 8.4 Eos % (Auto) 0.0 Baso % (Auto) 0.1 Lymph # (Auto) 0.7 L [place] # (Auto) 0.8 Eos # (Auto) 0.0 Baso # (Auto) 0.0 Abs Immat Gran (auto) 0.05 H Absolute Neuts (auto) 8.0 Absolute Nucleated RBC 0.000 Nucleated RBC % (auto) 0.0 Hold Purple Top VBG pH VBG pCO2 VBG pO2 VBG HCO3 VBG O2 Saturation VBG Base Excess Sodium 139 Potassium 3.3 Chloride 107 Carbon Dioxide 21 L Anion Gap 14 BUN 27 H Creatinine 1.37 Estim Creat Clear Calc 64.1 Estimated GFR 55 POC Glucose 183 H 192 H Random Glucose 195 H Calcium 9.9 D Phosphorus 1.4 L Magnesium 1.9 Albumin 3.0 L Stool Occult Blood Influenza Type A (PCR) Influenza Type B (PCR) RSV RNA Qual (PCR) SARS-CoV-2 RNA (RT-PCR) 01/30/24 01/30/24 01/31/24 21:55 23:07 00:55 WBC RBC Hgb Hct MCV MCH MCHC RDW Plt Count MPV Immature Gran % (Auto) Neut % (Auto) Lymph % (Auto) [place] % (Auto) Eos % (Auto) Baso % (Auto) Lymph # (Auto) [place] # (Auto) Eos # (Auto) Baso # (Auto) Abs Immat Gran (auto) Absolute Neuts (auto) Absolute Nucleated RBC Nucleated RBC % (auto) Hold Purple Top VBG pH VBG pCO2 VBG pO2 VBG HCO3 VBG O2 Saturation VBG Base Excess Sodium Potassium Chloride Carbon Dioxide Anion Gap BUN Creatinine Estim Creat Clear Calc Estimated GFR POC Glucose 172 H 170 H 137 H Random Glucose Calcium Phosphorus Magnesium Albumin Stool Occult Blood Influenza Type A (PCR) Influenza Type B (PCR) RSV RNA Qual (PCR) SARS-CoV-2 RNA (RT-PCR) 01/31/24 01/31/24 01/31/24 02:57 04:56 05:28 WBC RBC Hgb Hct MCV MCH MCHC RDW Plt Count MPV Immature Gran % (Auto) Neut % (Auto) Lymph % (Auto) [place] % (Auto) Eos % (Auto) Baso % (Auto) Lymph # (Auto) [place] # (Auto) Eos # (Auto) Baso # (Auto) Abs Immat Gran (auto) Absolute Neuts (auto) Absolute Nucleated RBC Nucleated RBC % (auto) Hold Purple Top VBG pH 7.52 H VBG pCO2 27 VBG pO2 66 VBG HCO3 22 VBG O2 Saturation 95.0 VBG Base Excess 0.6 Sodium Potassium Chloride Carbon Dioxide Anion Gap BUN Creatinine Estim Creat Clear Calc Estimated GFR POC Glucose 150 H 176 H Random Glucose Calcium Phosphorus Magnesium Albumin Stool Occult Blood Influenza Type A (PCR) Influenza Type B (PCR) RSV RNA Qual (PCR) SARS-CoV-2 RNA (RT-PCR) 01/31/24 01/31/24 01/31/24 05:33 06:32 07:24 WBC 9.5 RBC 4.48 L Hgb 13.1 L Hct 37.2 L MCV 83.0 MCH 29.2 MCHC 35.2 RDW 12.0 Plt Count 201 MPV 10.1 Immature Gran % (Auto) 0.4 Neut % (Auto) 86.9 H Lymph % (Auto) 5.7 L [place] % (Auto) 6.9 Eos % (Auto) 0.0 Baso % (Auto) 0.1 Lymph # (Auto) 0.5 L [place] # (Auto) 0.7 Eos # (Auto) 0.0 Baso # (Auto) 0.0 Abs Immat Gran (auto) 0.04 H Absolute Neuts (auto) 8.2 Absolute Nucleated RBC 0.000 Nucleated RBC % (auto) 0.0 Hold Purple Top VBG pH VBG pCO2 VBG pO2 VBG HCO3 VBG O2 Saturation VBG Base Excess Sodium 139 Potassium 3.5 Chloride 110 H Carbon Dioxide 21 L Anion Gap 12 BUN 21 H Creatinine 1.21 Estim Creat Clear Calc 72.6 Estimated GFR > 60 POC Glucose 179 H Random Glucose 186 H Calcium 9.5 Phosphorus 1.3 L Magnesium 1.9 Albumin 2.9 L Stool Occult Blood POSITIVE Influenza Type A (PCR) Influenza Type B (PCR) RSV RNA Qual (PCR) SARS-CoV-2 RNA (RT-PCR) 01/31/24 09:46 WBC RBC Hgb Hct MCV MCH MCHC RDW Plt Count MPV Immature Gran % (Auto) Neut % (Auto) Lymph % (Auto) [place] % (Auto) Eos % (Auto) Baso % (Auto) Lymph # (Auto) [place] # (Auto) Eos # (Auto) Baso # (Auto) Abs Immat Gran (auto) Absolute Neuts (auto) Absolute Nucleated RBC Nucleated RBC % (auto) Hold Purple Top SEE NOTE VBG pH VBG pCO2 VBG pO2 VBG HCO3 VBG O2 Saturation VBG Base Excess Sodium Potassium Chloride Carbon Dioxide Anion Gap BUN Creatinine Estim Creat Clear Calc Estimated GFR POC Glucose Random Glucose Calcium Phosphorus Magnesium Albumin Stool Occult Blood Influenza Type A (PCR) Influenza Type B (PCR) RSV RNA Qual (PCR) SARS-CoV-2 RNA (RT-PCR) Progress Note: A&P Assessment and plan (1) COVID-19: Status: Acute (2) DKA (diabetic ketoacidosis): Status: Acute (3) GI bleed: Status: Acute Plan Assessment: 48-year-old gentleman with underlying diabetes mellitus admitted with diabetic ketoacidosis on the background of upper respiratory infection. Plan: Neuro: No acute issues. Cardiac: No acute issues. Pulmonary: Respiratory infection due to COVID-19. Renal: No acute issues. Endo: Diabetic ketoacidosis, resolved, titrated off insulin drip. Continue subcutaneous insulin. GI: An episode of emesis of small amount of coffee-ground material. Evaluated by Gastroenterology service with no plans for intervention during this hospitalization. ID: No acute issues Heme/Onc: No acute issues. Psych: No acute issues. Miscellaneous: No acute issues. Prophylaxis: Heparin Diet: Diabetic Quality Stroke Does the patient have a stroke diagnosis?: No VTE Prior VTE?: No VTE Risk Level:: Medical - moderate - high VTE Device Contraindication: Treatment Not Indicated VTE Drug Contraindication: N/A - Med Ordered
[2024-01-31 10:28] LABS: Anion Gap 11 (12-20); Blood Urea Nitrogen 18 mg/dL (9-16); Calcium 8.9 mg/dL (8.4-10.2); Carbon Dioxide 23 mmol/L (22-29); Chloride 109 mmol/L (96-108); Creatinine Clr Calc Pharmacy 76.6; Estimated Glomerular Filt Rate > 60; Glucose Random 233 mg/dL (60-115); Potassium 3.9 mmol/L (3.3-5.1); Sodium 139 mmol/L (135-145)
[2024-01-31 11:05] LABS: Folate 5.1 ng/mL (> or = 4.0); Vitamin B12 629 pg/mL (200-900)
[2024-01-31 11:44] LABS: Glucose, Whole Blood 233 mg/dL (60-115)
[2024-01-31 11:44] LABS: Ferritin 2195 ng/mL (20-250)
--- NOTE | 2024-01-31 13:32 | MHC.CM.PN ---
Pt is independent with care needs, employed, has no services and has transportation to home. Pt will transfer to the floor for continued care.
[2024-01-31 16:26] LABS: Glucose, Whole Blood 202 mg/dL (60-115)
[2024-01-31] MEDS: Acetylcysteine 10 % 400 MG/4 ML VIAL INHALE (17:54)
[2024-01-31 22:24] LABS: Glucose, Whole Blood 206 mg/dL (60-115)
[2024-02-01] MEDS: Albumin Human 25 % 100 ML IV (02:36)
[2024-02-01 03:11] VITALS: BP 154/88; PULSE 124; RESP 18; TEMP 36.5; O2SAT 85
[2024-02-01] MEDS: Pantoprazole Sodium 40 MG/10 ML VIAL IVPUSH (05:51)
[2024-02-01 07:10] VITALS: BP 155/92; PULSE 120; RESP 20; TEMP 37.2; O2SAT 92
[2024-02-01 07:32] LABS: Glucose, Whole Blood 232 mg/dL (60-115)
[2024-02-01 08:34] LABS: Hematocrit 36.5 % (42.0-52.0); Hemoglobin 13.1 g/dl (14.0-18.0); Mean Corpuscular HGB Conc 35.9 g/dl (31.0-36.0); Mean Corpuscular Hemoglobin 29.7 pg (27.0-33.0); Mean Corpuscular Volume 82.8 fL (80.0-98.0); Mean Platelet Volume 10.1 fL (9.4-12.4); Platelet Count 184 X10*3/uL (160-400); Red Blood Count 4.41 X10*6/uL (4.60-5.80); Red Cell Distribution Width 11.9 % (11.0-16.0); White Blood Count 7.2 X10*3/uL (4.8-10.8)
[2024-02-01 08:48] LABS: Anion Gap 18 (12-20); Blood Urea Nitrogen 9 mg/dL (9-16); Calcium 9.5 mg/dL (8.4-10.2); Carbon Dioxide 21 mmol/L (22-29); Chloride 104 mmol/L (96-108); Creatinine Clr Calc Pharmacy 104.8; Estimated Glomerular Filt Rate > 60; Glucose Random 247 mg/dL (60-115); Lactate Dehydrogenase 349 U/L (118-273); Potassium 3.4 mmol/L (3.3-5.1); Sodium 140 mmol/L (135-145)
[2024-02-01] MEDS: Insulin Lispro 100 UNIT/ML 3 ML VIAL SUBCUT ×4 (09:02→21:27)
[2024-02-01] MEDS: Calcium Carbonate 750 MG TAB.CHEW PO (09:04)
[2024-02-01] MEDS: Acetaminophen 325 MG TABLET 650 MG PO (09:04)
--- NOTE | 2024-02-01 11:16 | MHC.CM.PN ---
EMR REVIEWED, PT W/DKA ADN STEPDOWN FROM ICU, PLAN TO WEAN PT OFF O2, NO PLAN FOR DC AT THIS TIME, CM WILL CONT TO FOLLOW DC NEEDS.
[2024-02-01 11:37] LABS: Glucose, Whole Blood 215 mg/dL (60-115)
[2024-02-01 11:51] VITALS: BP 140/87; PULSE 112; RESP 20; TEMP 36.9; O2SAT 92
[2024-02-01] MEDS: guaiFENesin LA 600 MG TAB.ER.12H PO ×2 (11:52→21:27)
--- NOTE | 2024-02-01 12:10 | P.PNIM_ITS ---
Subjective Subjective Date of Service: 02/01/24 Interval History: seen and evaluated this morning feels better sugar better controlled weaning down O2 supplement tolerating more diet Review of Systems Review of Systems: Yes all other systems are reviewed and are negative Physical Exam 2 Vital Signs: Vital Signs: Last Vital Signs Temp 98.5 F 02/01/24 11:51 Pulse 112 H 02/01/24 11:51 Resp 20 02/01/24 11:51 BP 140/87 H 02/01/24 11:51 Pulse Ox 92 02/01/24 11:51 O2 Del Method Nasal Cannula 02/01/24 11:51 O2 Flow Rate 3 02/01/24 11:51 BMI result Body Mass Index 28.6 Const: Other: Constitutional : Awake, interactive, not in distress Neck : Normal inspection, Supple Cardiovascular : RRR, no JVP, no lower extremity edema Respiratory : dreased bilateral air entry at the bases, no crackles, scattered wheezes Gastrointestinal: soft, lax, Normal bowel sounds, Non tender Skin : Warm, Dry Neurological : Alert & oriented x3, No focal deficit Objective Data Active Medications Acetaminophen (Acetaminophen 325 Mg Tablet) 650 mg PO Q6H PRN PRN Reason: Headache Last Admin: 02/01/24 09:04 Dose: 650 mg Documented By: DICKOSN Calcium Carbonate (Calcium Carbonate 750 Mg Tab.Chew) 750 mg PO Q4H PRN PRN Reason: Heartburn Last Admin: 02/01/24 09:04 Dose: 750 mg Documented By: DICKSON Guaifenesin (Guaifenesin La 600 Mg Tab.Er.12h) 600 mg PO BID [facility] Last Admin: 02/01/24 11:52 Dose: 600 mg Documented By: DICKSON Guaifenesin/Dextromethorphan (Guaifenesin Dm 200/20/10 Ml 10 Ml Syrup) 10 ml PO Q4H PRN PRN Reason: Cough Dextrose (D10) 250 mls @ 750 mls/hr IV Q30M PRN PRN Reason: BG <70 Insulin Human Lispro (Insulin Lispro 100 Unit/Ml 3 Ml Vial) 0 unit SUBCUT QIDACHS [facility]; Protocol Last Admin: 02/01/24 11:53 Dose: 4 unit Documented By: DICKSON Ondansetron HCl (Ondansetron Hcl 4 Mg/2 Ml Vial) 4 mg IVPUSH Q6H PRN PRN Reason: Nausea and Vomiting Last Admin: 01/30/24 17:22 Dose: 4 mg Documented By: AUBRIE Pantoprazole Sodium (Pantoprazole Sodium 40 Mg/10 Ml Vial) 40 mg IVPUSH BID@0630,1630 [facility] Last Admin: 02/01/24 05:51 Dose: 40 mg Documented By: ACE Labs 02/01/24 08:26 02/01/24 08:26 Labs: Laboratory Results - last 24 hr 01/31/24 01/31/24 02/01/24 16:21 22:16 07:17 MCV MCH MCHC RDW Plt Count MPV Absolute Nucleated RBC Nucleated RBC % (auto) Anion Gap Estim Creat Clear Calc Estimated GFR POC Glucose 202 H 206 H 232 H Random Glucose Calcium Lactate Dehydrogenase C-Reactive Protein 02/01/24 02/01/24 08:26 11:26 MCV 82.8 MCH 29.7 MCHC 35.9 RDW 11.9 Plt Count 184 MPV 10.1 Absolute Nucleated RBC 0.000 Nucleated RBC % (auto) 0.0 Anion Gap 18 Estim Creat Clear Calc 104.8 Estimated GFR > 60 POC Glucose 215 H Random Glucose 247 H Calcium 9.5 D Lactate Dehydrogenase 349 H C-Reactive Protein 7.50 H Assessment and Plan (1) GI bleed: Status: Acute (2) COVID-19: Status: Acute (3) Acute respiratory failure with hypoxia: Status: Acute Plan A 48 years old with PMH of DM admitted for DKA to ICU found to have Covid infection and reported hematemesis incident. DKA 2/2 Diabetes mellitus resolved, now with hyperglycemia Increase Lantus to 20 units bedtime give 1 time 10 units now SSI diabetic diet Acute Hypoxic respiratory failure 2/2 Covid19 infx Start Prednisone therapy Mucinex PRN inhaler Wean O2 down as tolerated Hematemesis No drop in Hb , not recurrent could be swallowed blood normal ferritin, folate and B12 continue PPI GI input appreciated, no intervention planned now DVT PPx SCDs given hematemesis The patient will need overnight hospital stay for treatment of Covid19 w hypoxia, control Blood sugar. Quality Stroke Does the patient have a stroke diagnosis?: No VTE Prior VTE?: No VTE Risk Level:: Medical - moderate - high VTE Device Contraindication: Treatment Not Indicated VTE Drug Contraindication: N/A - Med Ordered
[2024-02-01] MEDS: Insulin Glargine,Hum.rec.anlog 100 UNIT/ML 10 ML VIAL 10 UNIT SUBCUT (12:34)
[2024-02-01] MEDS: predniSONE 20 MG TABLET 40 MG PO (12:34)
[2024-02-01 15:36] VITALS: BP 169/95; PULSE 110; RESP 20; TEMP 36.8; O2SAT 92
[2024-02-01 16:15] LABS: Glucose, Whole Blood 228 mg/dL (60-115)
[2024-02-01 16:19] VITALS: BP 148/78
[2024-02-01 19:33] VITALS: BP 161/96; PULSE 106; RESP 17; TEMP 36.3; O2SAT 95
[2024-02-01 20:37] LABS: Glucose, Whole Blood 218 mg/dL (60-115)
[2024-02-01] MEDS: Insulin Glargine,Hum.rec.anlog 100 UNIT/ML 10 ML VIAL 20 UNIT SUBCUT (21:27)
[2024-02-02] VITALS (7 sets, daily range): BP systolic 138–170; BP diastolic 79–97; PULSE 100–113; RESP 14–20; TEMP 36.1–37.2; O2SAT 2–97
[2024-02-02] MEDS: Omeprazole 20 MG CAPSULE.DR PO ×2 (05:39→16:12)
[2024-02-02 07:10] LABS: Glucose, Whole Blood 140 mg/dL (60-115)
[2024-02-02] MEDS: predniSONE 20 MG TABLET 40 MG PO (08:54)
[2024-02-02] MEDS: guaiFENesin LA 600 MG TAB.ER.12H PO ×2 (08:54→21:20)
--- NOTE | 2024-02-02 10:27 | MHC.CM.PN ---
ANT[facility] PT MAY BE MEDICALLY CLEARED LATER TODAY IF WEANED OFF O2, CM MET W/PT TO VERIFY PCP, PT REPORTS HE DOES NOT HAVE A PCP AND PT PROVIDED W/[facility] PROVIDER LIST AND INSTRUCTED TO CALL THEY DO TAKE PT'S INSURANCE, PT WILL ARRANGE PRIVATE TRANSPORT.
[2024-02-02 10:58] LABS: Glucose, Whole Blood 186 mg/dL (60-115)
[2024-02-02] MEDS: Fluconazole 100 MG TABLET 200 MG PO (11:40)
[2024-02-02] MEDS: Insulin Lispro 100 UNIT/ML 3 ML VIAL SUBCUT ×3 (11:40→21:20)
[2024-02-02] MEDS: Nystatin Oral Susp 500,000 UNIT/5 ML ORAL.SUSP 400000 UNIT BUCCAL ×3 (11:41→21:20)
--- NOTE | 2024-02-02 13:26 | P.PNIM_ITS ---
Subjective Subjective Date of Service: 02/02/24 Interval History: seen and evaluated this morning feels better , reporting sore throat and difficulties swallowing sugar better controlled weaning down O2 supplement tolerating more diet Review of Systems Review of Systems: Yes all other systems are reviewed and are negative Physical Exam 2 Vital Signs: Vital Signs: Last Vital Signs Temp 98.5 F 02/02/24 11:09 Pulse 109 H 02/02/24 11:09 Resp 20 02/02/24 11:09 BP 170/94 H 02/02/24 11:09 Pulse Ox 95 02/02/24 11:09 O2 Del Method Nasal Cannula 02/02/24 11:09 O2 Flow Rate 2 02/02/24 11:09 BMI result Body Mass Index 28.6 Const: Other: Constitutional : Awake, interactive, not in distress Neck : Normal inspection, Supple ORal: Oral thrush Cardiovascular : RRR, no JVP, no lower extremity edema Respiratory : dreased bilateral air entry at the bases, no crackles, scattered wheezes Gastrointestinal: soft, lax, Normal bowel sounds, Non tender Skin : Warm, Dry Neurological : Alert & oriented x3, No focal deficit Objective Data Active Medications Acetaminophen (Acetaminophen 325 Mg Tablet) 650 mg PO Q6H PRN PRN Reason: Headache Last Admin: 02/01/24 09:04 Dose: 650 mg Documented By: DICKSON Albuterol Sulfate (Albuterol Sulfate 90 Mcg 8 Gm Inhaler) 2 puff INHALE RQ4H PRN PRN Reason: Shortness of Breath/Wheezing Calcium Carbonate (Calcium Carbonate 750 Mg Tab.Chew) 750 mg PO Q4H PRN PRN Reason: Heartburn Last Admin: 02/01/24 09:04 Dose: 750 mg Documented By: DICKSON Fluconazole (Fluconazole 100 Mg Tablet) 100 mg PO DAILY CHITO Guaifenesin (Guaifenesin La 600 Mg Tab.Er.12h) 600 mg PO BID CHITO Last Admin: 02/02/24 08:54 Dose: 600 mg Documented By: MELISSA Guaifenesin/Dextromethorphan (Guaifenesin Dm 200/20/10 Ml 10 Ml Syrup) 10 ml PO Q4H PRN PRN Reason: Cough Dextrose (D10) 250 mls @ 750 mls/hr IV Q30M PRN PRN Reason: BG <70 Insulin Glargine (Insulin Glargine,Hum.Rec.Anlog 100 Unit/Ml 10 Ml Vial) 20 unit SUBCUT BEDTIME [facility] Last Admin: 02/01/24 21:27 Dose: 20 unit Documented By: GERMAN Insulin Human Lispro (Insulin Lispro 100 Unit/Ml 3 Ml Vial) 0 unit SUBCUT QIDACHS [facility]; Protocol Last Admin: 02/02/24 11:40 Dose: 2 unit Documented By: MELISSA Nystatin (Nystatin Oral Susp 500,000 Unit/5 Ml Oral.Susp) 400,000 unit BUCCAL QID [facility]; Protocol Last Admin: 02/02/24 11:41 Dose: 400,000 unit Documented By: MELISSA Omeprazole (Omeprazole 20 Mg Capsule.) 20 mg PO BID@0630,1630 [facility] Last Admin: 02/02/24 05:39 Dose: 20 mg Documented By: GERMAN Ondansetron HCl (Ondansetron Hcl 4 Mg/2 Ml Vial) 4 mg IVPUSH Q6H PRN PRN Reason: Nausea and Vomiting Last Admin: 01/30/24 17:22 Dose: 4 mg Documented By: AUBRIE Prednisone (Prednisone 20 Mg Tablet) 40 mg PO DAILY [facility] Last Admin: 02/02/24 08:54 Dose: 40 mg Documented By: MELISSA Labs 02/01/24 08:26 02/01/24 08:26 Labs: Laboratory Results - last 24 hr 02/01/24 02/01/24 02/02/24 16:08 20:30 07:05 POC Glucose 228 H 218 H 140 H 02/02/24 10:54 POC Glucose 186 H Assessment and Plan (1) Acute respiratory failure with hypoxia: Status: Acute (2) COVID-19: Status: Acute (3) Thrush of mouth and esophagus: Status: Acute Plan A 48 years old with PMH of DM admitted for DKA to ICU found to have Covid infection and reported hematemesis incident. Acute Hypoxic respiratory failure 2/2 Covid19 infx dropped to 80s on ambulation Start Prednisone therapy Mucinex PRN inhaler Wean O2 down as tolerated DKA 2/2 Diabetes mellitus resolved, now with hyperglycemia Increase Lantus to 20 units bedtime SSI diabetic diet Dysphagia 2/2 Oral thrush, candidal esophagitis Diflucan PO, Nystatin mouth wash Hematemesis No drop in Hb , not recurrent could be swallowed blood normal ferritin, folate and B12 continue PPI GI input appreciated, no intervention planned now DVT PPx SCDs given hematemesis The patient will need overnight hospital stay for treatment of Covid19 w hypoxia, control Blood sugar. Quality Stroke Does the patient have a stroke diagnosis?: No VTE Prior VTE?: No VTE Risk Level:: Medical - moderate - high VTE Device Contraindication: Treatment Not Indicated VTE Drug Contraindication: N/A - Med Ordered
[2024-02-02 15:32] LABS: Glucose, Whole Blood 221 mg/dL (60-115)
[2024-02-02 20:46] LABS: Glucose, Whole Blood 197 mg/dL (60-115)
[2024-02-02] MEDS: Insulin Glargine,Hum.rec.anlog 100 UNIT/ML 10 ML VIAL 20 UNIT SUBCUT (21:21)
[2024-02-03] VITALS: BP 167/98; PULSE 110; RESP 18; TEMP 36.2; O2SAT 95
[2024-02-03 04:00] VITALS: BP 152/102; PULSE 88; RESP 16; TEMP 37.2; O2SAT 92
--- NOTE | 2024-02-03 04:27 | PC.NURSE ---
BP elevated, Dr. Mercado made aware. No new orders at this time.
[2024-02-03] MEDS: Omeprazole 20 MG CAPSULE.DR PO ×2 (06:01→16:37)
[2024-02-03 07:13] LABS: Glucose, Whole Blood 198 mg/dL (60-115)
[2024-02-03 07:15] VITALS: BP 168/88; PULSE 93; RESP 20; TEMP 36.7; O2SAT 93
[2024-02-03 07:29] LABS: Hematocrit 41.5 % (42.0-52.0); Hemoglobin 14.9 g/dl (14.0-18.0); Mean Corpuscular HGB Conc 35.9 g/dl (31.0-36.0); Mean Corpuscular Hemoglobin 29.6 pg (27.0-33.0); Mean Corpuscular Volume 82.5 fL (80.0-98.0); Mean Platelet Volume 10.5 fL (9.4-12.4); Platelet Count 235 X10*3/uL (160-400); Red Blood Count 5.03 X10*6/uL (4.60-5.80); Red Cell Distribution Width 11.6 % (11.0-16.0); White Blood Count 8.6 X10*3/uL (4.8-10.8)
[2024-02-03] MEDS: Fluconazole 100 MG TABLET PO (07:54)
[2024-02-03] MEDS: guaiFENesin LA 600 MG TAB.ER.12H PO (07:54)
[2024-02-03] MEDS: Nystatin Oral Susp 500,000 UNIT/5 ML ORAL.SUSP 400000 UNIT BUCCAL ×3 (07:54→16:37)
[2024-02-03] MEDS: predniSONE 20 MG TABLET 40 MG PO (07:54)
[2024-02-03] MEDS: Insulin Lispro 100 UNIT/ML 3 ML VIAL SUBCUT ×3 (07:55→16:37)
[2024-02-03 07:59] LABS: Blood Urea Nitrogen 12 mg/dL (9-16); C Reactive Protein 3.62 mg/dL (< or = 0.50); Calcium 8.7 mg/dL (8.4-10.2); Creatinine Clr Calc Pharmacy 120.6; Estimated Glomerular Filt Rate > 60; Glucose Random 188 mg/dL (60-115); Lactate Dehydrogenase 368 U/L (118-273)
[2024-02-03] MEDS: Losartan Potassium 25 MG TABLET PO (08:00)
[2024-02-03 08:21] LABS: Anion Gap 14 (12-20); Carbon Dioxide 28 mmol/L (22-29); Chloride 98 mmol/L (96-108); Potassium 2.5 mmol/L (3.3-5.1); Sodium 137 mmol/L (135-145)
[2024-02-03] MEDS: Potassium Chloride Packet 20 MEQ PACKET 40 MEQ PO (09:14)
[2024-02-03] MEDS: Potassium Chloride/H20 10 MEQ/100 ML PIGGYBACK 100 MEQ IV ×2 (09:15→10:51)
[2024-02-03] MEDS: Potassium Chloride ER 20 MEQ TAB.ER.PRT 40 MEQ PO (10:51)
[2024-02-03 11:26] VITALS: BP 164/92; PULSE 98; RESP 20; TEMP 37.1; O2SAT 95
[2024-02-03 11:38] LABS: Glucose, Whole Blood 232 mg/dL (60-115)
--- NOTE | 2024-02-03 13:37 | PM.DS ---
DS: Providers Provider Date of Service: 02/03/24 Date of admission: 01/30/24 08:56 Date of discharge: 02/03/24 Primary care physician: None Physician Consults: 01/31/24 08:00 Consult to Gastroenterology Routine Consulting Provider: [facility] [place] G[facility]enterology Services Reason for consultation: GI bleed Has provider been notified: No DS: Diagnosis Discharge Diagnosis (1) Acute respiratory failure with hypoxia: Status: Acute (2) COVID-19: Status: Acute (3) Thrush of mouth and esophagus: Status: Acute (4) Diabetes 1.5, managed as type 2: Status: Acute (5) DKA (diabetic ketoacidosis): Status: Acute DS: Summary Hospital Course Hospital Course: Admission note HPI by ICU 48-year-old gentleman with underlying history of diabetes mellitus had an upper respiratory infection over the last week presented 2D to ER complaining 2 day history of nausea and vomiting. On ER evaluation patient with metabolic acidosis with hyperglycemia, and elevated hydroxybutyrate. Started on insulin drip and admitted to intensive care unit. Hospital course The patient was admitted for treatment of DKA in ICU. responded well to IV fluids and insulin. Transferred to medical floor. Lantus at 20 units. started SSI and will continue on that at home along with Glipizide. He was also treated for acute Hypoxic respiratory failure secondary Covid19 infection. Started Prednisone therapy, Mucinex, PRN inhaler as we Weaned O2 down to room air with good tolerance. Had Hypokalemia, responded well to IV and PO replacement. Noted to have high blood pressure. started on Losartan 25 mg daily. Reported Dysphagia and painful swallowing. noted to have Oral thrush and likely candidal esophagitis. responded well to Diflucan PO, Nystatin mouth wash Reported one incident of Hematemesis with No drop in Hb , not recurrent. normal ferritin, folate and B12. started on PPI. GI input appreciated, no intervention planned. to be discharged on Omeprazole. Discharge plan Prednisone for 3 more days Start insulin sliding scale Losartan for elevated blood pressure Diflucan and Nystatin for thrush Time Attestation Discharge Coordination Time (in mins): 46 Quality: Safe Use of Opioids Does Pt have an Active Cancer Diagnosis on the Problem List?: No Quality: Stroke Does the patient have a stroke diagnosis?: No Physical Exam Vital Signs: Vital Signs: Last Vital Signs Temp 98.8 F 02/03/24 11:26 Pulse 98 02/03/24 11:26 Resp 20 02/03/24 11:26 BP 164/92 H 02/03/24 11:26 Pulse Ox 95 02/03/24 11:26 O2 Del Method Room Air 02/03/24 11:26 O2 Flow Rate 1 02/03/24 07:15 BMI result Body Mass Index 28.6 Const: Other: Constitutional : Awake, interactive, not in distress Neck : Normal inspection, Supple ORal: Oral thrush Cardiovascular : RRR, no JVP, no lower extremity edema Respiratory : improved bilateral air entry at the bases, no crackles, no wheezes Gastrointestinal: soft, lax, Normal bowel sounds, Non tender Skin : Warm, Dry Neurological : Alert & oriented x3, No focal deficit DS: Data Data Completed and Pending Labs on day of discharge: Laboratory Results - last 24 hr 02/02/24 02/02/24 02/03/24 15:22 20:37 06:14 WBC 8.6 RBC 5.03 Hgb 14.9 Hct 41.5 L MCV 82.5 MCH 29.6 MCHC 35.9 RDW 11.6 Plt Count 235 D MPV 10.5 Absolute Nucleated RBC 0.000 Nucleated RBC % (auto) 0.0 Sodium 137 Potassium 2.5 L* D Chloride 98 Carbon Dioxide 28 Anion Gap 14 BUN 12 Creatinine 0.73 Estim Creat Clear Calc 120.6 Estimated GFR > 60 POC Glucose 221 H 197 H Random Glucose 188 H Calcium 8.7 D Lactate Dehydrogenase 368 H C-Reactive Protein 3.62 H 02/03/24 02/03/24 07:00 11:29 WBC RBC Hgb Hct MCV MCH MCHC RDW Plt Count MPV Absolute Nucleated RBC Nucleated RBC % (auto) Sodium Potassium Chloride Carbon Dioxide Anion Gap BUN Creatinine Estim Creat Clear Calc Estimated GFR POC Glucose 198 H 232 H Random Glucose Calcium Lactate Dehydrogenase C-Reactive Protein Imaging Chest x-ray: Radiologist's impression: ITS Impressions Chest X-Ray 01/30/24 07:18 IMPRESSION: Bilateral interstitial prominence may reflect mild edema or atypical/viral infection. Hazy opacity in the right midlung may represent developing infectious or inflammatory process. Streaky linear opacities in the left lung base may relate to atelectasis. Electronically signed by: Vladimir Breen MD 01/30/2024 08:16 AM [facility] [place] Discharge Plan Discharge Anticipated Discharge Date/Time: 02/03/24 13:30 Patient Disposition: Home, Self-Care Discharge Diagnosis: Diabetic ketoacidosis Thrush Covid19 infection Referrals: Physician,None [Primary Care Provider] - 1 Week Discharge Medications: New fluconazole 100 mg Tablet 100 mg PO DAILY Qty: 20 0RF nystatin 100,000 unit/mL Suspension 400,000 unit buccal QID 5 Days Qty: 80 0RF prednisone 20 mg Tablet 40 mg PO DAILY Qty: 6 0RF losartan 25 mg Tablet 25 mg PO DAILY Qty: 90 0RF Protocol: Hold for SBP< HOLD for SBP < : 90 omeprazole 20 mg Capsule,Delayed Release(Dr/Ec) 20 mg PO DAILY Qty: 90 0RF guaifenesin [Mucinex] 600 mg Tablet Extended Release 12hr 600 mg PO BID Qty: 20 0RF (DME) FreeStyle Lite Strips Strip See Rx Instructions .ROUTE .MEDSUPPLY Qty: 100 0RF Rx Instructions: QID (DME) lancets Misc See Rx Instructions .ROUTE .MEDSUPPLY Qty: 100 0RF Rx Instructions: 4 times daily (DME) pen needle, diabetic [Pen Needle] 31 gauge x 5/16 needle See Rx Instructions .ROUTE .MEDSUPPLY Qty: 1200 0RF Rx Instructions: QID insulin lispro [Humalog KwikPen Insulin] 100 unit/mL insulin pen See Protocol subcut USEASDIRECTD Qty: 15 0RF Protocol: Insulin Correction Scale Less than or equal to 110 ---- Give (units): 0 111 to 150 Give (units): 0 151 to 200 Give (units): 2 201 to 250 Give (units): 4 251 to 300 Give (units): 6 301 to 350 Give (units): 8 Greater than 350 Give (units): 10 Call MD if Blood Glucose > : 350 (DME) blood-glucose meter [FreeStyle Lite Meter] Kit See Rx Instructions .ROUTE .MEDSUPPLY Qty: 1 0RF Rx Instructions: As directed Continued glipizide 5 mg tablet 5 mg PO BID insulin glargine [Lantus Solostar U-100 Insulin] 100 unit/mL (3 mL) insulin pen 18 unit subcut BEDTIME Diet: Diabetic diet Activity on Discharge: As tolerated Stand Alone Forms: Patient Portal Discharge page Print Language: Stateless Care Plan Goals: Prednisone for 3 more days Start insulin sliding scale Losartan for elevated blood pressure Diflucan and Nystatin for thrush Health Concerns: Covid19 infection uncontrolled diabetes Hypertension Thrush Plan of Treatment: Steroids, Anti-fungal, blood pressure meds Assessment: as above
[2024-02-03 15:25] VITALS: BP 158/96; PULSE 102; RESP 20; TEMP 36.9; O2SAT 94
--- NOTE | 2024-02-03 15:28 | MHC.CM.PN ---
Pt has been medically cleared for DC, he will arrange his own ride home, DC plan is home, self care.
[2024-02-03 16:05] LABS: Glucose, Whole Blood 207 mg/dL (60-115)
[2024-02-03 16:08] LABS: Anion Gap 16 (12-20); Blood Urea Nitrogen 12 mg/dL (9-16); Carbon Dioxide 27 mmol/L (22-29); Chloride 100 mmol/L (96-108); Estimated Glomerular Filt Rate > 60; Glucose Random 228 mg/dL (60-115); Potassium 3.6 mmol/L (3.3-5.1); Sodium 139 mmol/L (135-145)
== END 2024-02-03 18:15 | disposition home or self-care (01) | DRG 420 ==
LOC: HO.ED 09:11 → HO.EDOVER 09:21 → HO.ICU 09:46 → HO.IMC 01-31 21:22
PROVIDERS: Internal Medicine Gastroenterology; Registered Nurse Community Health; Admitting Provider Internal Medicine Pulmonary Disease; Emergency Provider Emergency Medicine; Visit Provider Student in an Organized Health Care Education/Training Program
DX: E13.10 Other specified diabetes mellitus with ketoacidosis without coma (principal); J96.01 Acute respiratory failure with hypoxia; K92.0 Hematemesis; B37.0 Candidal stomatitis; U07.1 COVID-19; B37.81 Candidal esophagitis; E87.6 Hypokalemia; E86.0 Dehydration; Z79.4 Long term (current) use of insulin; Z79.84 Long term (current) use of oral hypoglycemic drugs; Z79.899 Other long term (current) drug therapy
CPT/HCPCS: 0241U; 36415; 71045; 80048; 80053; 82010; 82040; 82272; 82607; 82728; 82746; 82803; 82947; 83615; 83735; 84100; 84484; 85025; 85027; 86140; 93005; 99285; J1644; J2405; J2470; J2765; J3480; J7120; P9047

== ENCOUNTER 2024-01-30 08:56 | Outpatient (BNV) | payer OTHER, SELFPAY | END 2024-01-30 09:04 | PROVIDERS: Admitting Provider Internal Medicine Pulmonary Disease; Emergency Provider Emergency Medicine; Visit Provider Internal Medicine Cardiovascular Disease | DX: R07.9 Chest pain, unspecified (principal); R94.31 Abnormal electrocardiogram [ECG] [EKG] | CPT/HCPCS: 93010 ==

== ENCOUNTER → 2024-01-30 08:56 | Outpatient (BNV) | payer OTHER, SELFPAY | PROVIDERS: Admitting Provider Internal Medicine Pulmonary Disease; Emergency Provider Emergency Medicine; Visit Provider Internal Medicine Gastroenterology | DX: D64.9 Anemia, unspecified (principal) | CPT/HCPCS: 99223 ==

== ENCOUNTER → 2024-01-30 08:56 | Outpatient (BNV) | payer OTHER, SELFPAY | PROVIDERS: Admitting Provider Internal Medicine Pulmonary Disease; Emergency Provider Emergency Medicine; Visit Provider Internal Medicine Pulmonary Disease | DX: J06.9 Acute upper respiratory infection, unspecified (principal); E10.10 Type 1 diabetes mellitus with ketoacidosis without coma | CPT/HCPCS: 99232; 99233 ==

== ENCOUNTER → 2024-01-30 08:56 | Outpatient (BNV) | payer OTHER, SELFPAY | PROVIDERS: Admitting Provider Internal Medicine Pulmonary Disease; Emergency Provider Emergency Medicine; Visit Provider Student in an Organized Health Care Education/Training Program | DX: J96.01 Acute respiratory failure with hypoxia (principal); U07.1 COVID-19; B37.81 Candidal esophagitis; B37.0 Candidal stomatitis; E13.9 Other specified diabetes mellitus without complications; E10.10 Type 1 diabetes mellitus with ketoacidosis without coma | CPT/HCPCS: 99232; 99239 ==

== ENCOUNTER 2024-02-23 08:38 | Outpatient (AMB) | payer OTHER, SELFPAY ==
[2024-02-23 08:41] VITALS: BP 120/88; PULSE 125; O2SAT 99; BMI 28.7
--- NOTE | 2024-02-23 08:41 | A.OFFPC_ITS ---
Vital Signs 02/23/24 08:41 Height 5 ft 6 in Weight 178 lb BMI 28.7 BP 120/88 Blood Pressure Location Lt brachial Pulse 125 H Pulse Source Pulse Oximeter Pulse Oximetry (%) 99 Oxygen Delivery Method Room Air Intake Visit Reasons: [facility] 02/03 Cadastral Surveyor Required: No Accompanied by: Self / Same As Patient Allergies Penicillins Allergy (Unknown, Verified 02/23/24 09:04) Unknown Medication List - Last Reconciled 02/23/24 by Mallika Stallings PA-C blood sugar diagnostic (FreeStyle Lite Strips) QID blood-glucose meter (FreeStyle Lite Meter kit) As directed glipizide 5 mg PO BID insulin glargine (Lantus Solostar U-100 Insulin) 18 units subcut BEDTIME insulin lispro (Humalog KwikPen (U-100) Insulin) See Protocol sliding scale doses subcut USEASDIRECTD lancets 4 times daily losartan 25 mg See Protocol PO DAILY omeprazole 20 mg PO DAILY pen needle, diabetic (Pen Needle) QID Tobacco use date assessed: 02/23/24 Dental Screening Dental Screen Date: 02/23/24 Did you have a dental visit in the last 12 months?: No Did you have a dental problem in the last 6 months where you did not have access to dental care?: No Was dental information given to patient?: No HPI [facility] 02/03 HPI Details 49-year-old male coming to the office fo r the 1st time. In review of the notes patient was [place] [facility] [place] complaining of nausea and vomiting found to have metabolic acidosis with hyperglycemia started on insulin drip and admitted to ICU for DKA. Patient was treated for acute hypoxic respiratory failure secondary to COVID-19 infection started on prednisone and Mucinex and weaned off of oxygen. Started on losartan for elevated blood pressure, started on PPI for 1 episode of hematemesis. Patient was discharged home 02/03/2024 to continue on prednisone, started insulin sliding scale, losartan for elevated blood pressure and Diflucan and nystatin for thrush. Patient was previously being seen at [facility] and was being treated for diabetes mellitus with glipizide at that time. HE has no other diagnosis. He has been using the short acting insulin for about 2 weeks now and has been noticing an improvement in his blood sugars. He follows with [facility] in [place] for yearly eye exams. He has not yet had a colonoscopy. [facility] Medical History (Updated 02/23/24 @ 09:33 by Mallika Stallings PA-C) Anemia Diabetes 1.5, managed as type 2 Surgical History H/O oral surgery Family History Mother No problems noted. Father Stroke Social History Household Members: Significant Other Housing: House Do you presently have visiting nurse or other home services: No Alcohol intake: current Alcohol intake frequency: holidays/special occasions only Alcohol type: wine Patient Tobacco Use Status: Never used Tobacco Tobacco use type: Cigarette e-Cigarette/Vaping Use: Never Used Second Hand Smoke Exposure: No service: No Current occupational status: employed Current occupational exposures/hazards: No Cognitive needs: No Hearing needs: No Vision needs: Yes Questionnaire PHQ-9 Over the last 2 weeks, how often have you been bothered by any of the following problems? 1. Little interest or pleasure in doing things: not at all 2. Feeling down, depressed, or hopeless: not at all 3. Trouble falling or staying asleep, or sleeping too much: not at all 4. Feeling tired or having little energy: not at all 5. Poor appetite or overeating: not at all 6. Feeling bad about yourself - or that you are a failure or have let yourself or your family down: not at all 7. Trouble concentrating on things, such as reading the newspaper or watching television: not at all 8. Moving or speaking so slowly that other people could have noticed. Or the opposite - being so fidgety or restless that you have been moving around a lot more than usual: not at all 9. Thoughts that you would be better off or of hurting yourself in some way: not at all Total score: 0 Depression Screening Interpretation: Negative Depression Screening Done: Yes Source: Developed by Drs. Zain Cadet, Terrie Chauhan, Jorden Boudreaux and colleagues, with an educational ash from [employer]. Thrive Questionnaire Date Thrive assessed: 02/23/24 I am a: Patient What is your living situation today?: I have a steady place to live Within the past 12 months, did the food you bought not last and you didn't have the money to get more?: Never true Within the past 12 months, did you worry whether your food would run out before you got money to buy more?: Never true Do you have trouble paying for medicines?: No Do you have trouble getting transportation to medical appointments?: No Do you have trouble paying your heating and electricity bill?: No Do you have trouble taking care of your child, family member or friend?: No Do you have trouble with day-to-day activities such as bathing, preparing meals, shopping, managing finances, etc.?: No Are you currently unemployed and looking for a job?: No Are you interested in more education?: No Please select the resources that you would like help with: None Currently or been in a relationship where the following occur: No concerns reported THRIVE Score: 0 AUDIT C Alcohol Use Questionnaire (AUDIT-C) 1. How often do you have a drink containing alcohol?: Monthly or less 2. How many drinks containing alcohol do you have on a typical day when you are drinking?: 1 or 2 3. How often do you have six or more drinks on one occasion?: Never Total Score: 1 RIVER-7 AMB Questionnaire RIVER-7 Date RIVER - 7 assessed: 02/23/24 Feeling nervous, anxious, or on edge: 1 = Several days Not being able to stop or control worryin = Not at all Worrying too much about different things: 0 = Not at all Trouble relaxin = Not at all Being so restless that it is hard to sit still: 0 = Not at all Becoming easily annoyed or irritable: 0 = Not at all Feeling afraid as if something awful might happen: 0 = Not at all Total RIVER-7 score (0-4 normal; 5-9 mild; 10-14 moderate; 15-21 severe): 1 Source: Developed by Drs. Zain Cadet, Jorden Sampson and colleagues, with an educational ash from [employer]. Review of Systems Const Denies body aches, Denies chills, Denies fever(s), Denies headache(s) and Denies poor appetite Eyes Reports no additional complaints ENT Denies dysphagia, Denies dizziness, Denies headache(s) and Denies odynophagia Card Denies chest pain, Denies syncope, Denies edema, Denies irregular heart rhythm, Denies lightheadedness and Denies dyspnea Resp Denies cough and Denies dyspnea GI Denies abdominal pain, Denies melena, Denies hematochezia, Denies constipation, Denies dysphagia, Denies diarrhea, Denies nausea, Denies odynophagia, Denies vomiting and Denies hematemesis Reports no additional complaints Musc Reports no additional complaints and Denies abnormal gait Skin/Breast Reports system reviewed and no additional complaints, except as documented Neuro Denies abnormal gait, Denies dizziness, Denies syncope and Denies headache(s) Psych Reports no additional complaints Physical exam (Primary Care) Vital Signs: Last Vital Signs Pulse 125 H 02/23/24 08:41 BP 120/88 02/23/24 08:41 Pulse Ox 99 02/23/24 08:41 Oxygen Delivery Method Room Air 02/23/24 08:41 BMI result Body Mass Index 28.7 Tobacco/Smoking Status: Tobacco use Status Tobacco use date assessed 02/23/24 02/23/24 08:52 Patient Tobacco Use Status Never used Tobacco 02/23/24 08:52 Tobacco use type Cigarette 02/23/24 08:49 e-Cigarette/Vaping Use Never Used 02/23/24 08:52 PHQ-9: PHQ-9 Score PHQ-9: Total score 0 02/23/24 09:19 Depression Screening Interpretation: Negative Thrive Assessment: Date of Thrive Assessment Date Thrive assessed 02/23/24 02/23/24 08:52 Currently or been in a relationship where the following occur: No concerns reported Const General: cooperative, healthy appearing, comfortable and no acute distress Orientation/consciousness: patient oriented x3 HENMT Head: Yes normocephalic Ears: hearing grossly normal bilaterally General nose exam: Normal external nose present Eyes General: appearance normal, both eyes and all related structures Conjunctivae: conjunctivae normal Neck Neck: Yes full ROM and Yes no lymphadenopathy Resp Effort & Inspection: normal respiratory effort Auscultation: clear to auscultation bilaterally, no crackles, no rales, no rhonchi and no wheezes Cardio Rate: regular rate Rhythm: regular rhythm Skin General skin exam: no rashes or lesions noted Neuro General: patient oriented x3 Gait exam (Neuro): Normal gait present Extrem General: Yes normal to inspection, Yes full ROM and No edema Psych Affect: normal affect Attitude: cooperative Insight: Good insight present (Psych) Judgement: Good judgement present (Psych) Office Procedures Flu Questionnaire Does the patient have a severe egg allergy?: No Results AMB Hemoglobin A1c AMB Hemoglobin A1c 10.6 % Last Edit by CONG Wilkins on 02/23/24 09: 19 Immunizations Fluarix Triv [id number] (PF) 45 mcg (15 mcg x 3)/0.5 mL IM syringe Performing Provider: Mallika Stallings PA-C [place] [facility] Documented (not given) by: CONG Wilkins on 02/23/24 08:53 Reason Not Given: Patient Refused Results Reviewed Results Reviewed: Laboratory Last Values Hgb A1c (Clinic) 10.6 % (4.0-6.0) H 02/23/24 09:06 Coding Level of Care Code New Pt Level 4 (84199) Diagnoses Diabetes 1.5, managed as type 2 E13.9 Hypertension I10 Tachycardia R00.0 Anemia, unspecified type D64.9 Anemia type: unspecified type Hematemesis K92.0 Post-nasal drip R09.82 Assessment & Plan Assessment & Plan (1) Diabetes 1.5, managed as type 2: Comment: [facility] 2023 Code(s): E13.9 - Other specified diabetes mellitus without complications Category: Medical Plan: Decrease the amount of carbohydrates such as pasta, bread, rice, and potatoes and limit the amount of sweets. Although fruits are generally healthy they should be eaten in moderation as they are still high in sugar. Hemoglobin A1c goal of less than 7% A1c over 10% today but has not had short acting insulin over the duration of the 3 months. Referred to endocrinology and we will repeat A1c in 3 months. Discussed dietary modification and exercise. Patient states he has not been taking the glipizide and would like to discontinue this medication at this time for fear of hypoglycemia. Discussed sliding scale insulin and advised patient to reach out if blood sugars are continually elevated. (2) Hypertension: Code(s): I10 - Essential (primary) hypertension Category: Medical Plan: Continue on current blood pressure medication. Avoid salt intake and encourage healthy diet and regular exercise. (3) Tachycardia: Code(s): R00.0 - Tachycardia, unspecified Category: Medical Plan: Patient tachycardic on exam last EKG concerning for possible ischemia referred to Cardiology at this time. Also will order for blood work to look for underlying cause of tachycardia. (4) Anemia: Code(s): D64.9 - Anemia, unspecified Category: Medical Qualifiers: Anemia type: unspecified type Qualified Code(s): D64.9 - Anemia, unspecified Plan: Continue to monitor with blood work (5) Hematemesis: Code(s): K92.0 - Hematemesis Category: Medical Plan: Continue to monitor CBC for anemia. Referred to Gastroenterology and continue on PPI. (6) Post-nasal drip: Code(s): R09.82 - Postnasal drip Category: Medical Plan: Referral placed to [employer] portal developer advised to use Flonase and [id number] antihistamine. Plan This note was constructed using voice recognition software. While every effort has been made to ensure accuracy and environmental professional, still areas may have been included sometimes these areas may affect the content or meeting of the given symptoms. Total time spent caring for the patient today was 30 minutes. This includes time spent before the visit reviewing the chart, time spent during the visit, and time spent after the visit and documentation. Orders: Orders TSH reflex Free T4 Today E13.9 - Other specified diabetes mellitus without complications, I10 - Essential (primary) hypertension, R00.0 - Tachycardia, unspecified Microalbumin, Random (w Creat) Today E11.9 - Type 2 diabetes mellitus without complications IRON PROFILE Today E13.9 - Other specified diabetes mellitus without complications Influenza [id number] Immunization Today Z23 - Encounter for immunization AMB Hemoglobin A1c Today E13.9 - Other specified diabetes mellitus without complications Comprehensive Met. Panel Today E13.9 - Other specified diabetes mellitus without complications, I10 - Essential (primary) hypertension Free T4 (Free Thyroxine) Today R00.0 - Tachycardia, unspecified Vitamin B12 and Folate Today I10 - Essential (primary) hypertension Vitamin D 25-OH (D2 and D3) Today E13.9 - Other specified diabetes mellitus without complications Lipid Panel Today E78.00 - Pure hypercholesterolemia, unspecified UA CC w/rflx Micro + Cult Today R35.89 - Other polyuria Complete Blood Count Auto Diff Today D64.9 - Anemia, unspecified Referrals Gastroenterology Referral K92.0 - Hematemesis, Z12.11 - Encounter for screening for malignant neoplasm of colon Cardiology Referral R00.0 - Tachycardia, unspecified Podiatry Referral E13.9 - Other specified diabetes mellitus without complications Endocrinology Referral E13.9 - Other specified diabetes mellitus without complications Allergy & Immunology Referral R09.82 - Postnasal drip Medications: New fluticasone propionate 50 mcg/actuation (Flonase Allergy Relief) administer into each nostril 1 spray intranasal DAILY 16 grams 0RF Refilled omeprazole 20 mg PO DAILY 90 caps 2RF losartan 25 mg See Protocol PO DAILY 90 tabs 2RF insulin lispro (Humalog KwikPen (U-100) Insulin) See Protocol subcut USEASDIRECTD 15 mL 3RF Discontinued fluconazole Discontinued Reason: Patient Completed Course 100 mg PO DAILY 20 tabs 0RF guaifenesin ER (Mucinex) Discontinued Reason: Patient Completed Course 600 mg PO BID 20 tabs 0RF prednisone Discontinued Reason: Patient Completed Course 40 mg (2 x 20 mg) PO DAILY 6 tabs 0RF nystatin Discontinued Reason: Patient Completed Course 400,000 units (4 mL) buccal QID 5 days 80 mL 0RF
--- OUTSIDE RECORDS SUMMARY | 2024-02-29 00:26 | XMS_ITS | Data Portability ---
Author Organization [facility] [address] Address [address] [place] [address] Assessment No assessment recorded. Plan of Treatment Reminders Order Date Submit Date Provider Last Modified By Organization Details Last Modified Time Details Appointments None record ed. Lab None record ed. Referral None record ed. Procedures None record ed. Surgeries None record ed. Imaging None record ed. Medication Orders None record ed. Patient TargetsNo targets recorded. Patient InstructionsNo instructions recorded. Reason for Referral None Reported. Medical Equipment None Reported. Vitals None Recorded Social History None recorded. Functional Status None recorded. Mental Status None recorded. Family History Nothing Reported. Medical History No medical history recorded. Past Encounters Encounter ID Performer Location Encounter Start Date Encounter Closed Date Diagnosis/Indication Diagnosis SNOMED-CT Code Diagnosis ICD10 Code [id number] [address] [place] [address] 09/07/2018 10:50:09 09/07/2018 11:28:[id number] [address] [address] 07/24/2020 08:14:08 07/24/2020 09:11:00 [id number] [address] [place] [address] 09/21/2019 08:16:28 09/21/2019 08:52:04 [id number] [address] [place] [address] 08/21/2018 08:34:28 08/21/2018 09:44:22 [id number] [address] [place] [address] 11/07/2018 13:00:55 11/07/2018 14:01:32 [id number] [address] [facility] [place] [address] 12/19/2018 17:29:28 12/19/2018 18:19:27 [id number] [address] [facility] [place] [address] 01/15/2018 19:42:49 01/15/2018 20:04:11 [id number] [address] [facility] [place] [address] 11/23/2017 16:38:47 11/23/2017 17:15:18 Health Concerns Section Related Observation LastModified by Organization Detai ls LastModified Time None Recorded Concern Status LastModified by Organization Details LastModified Time None Recorded Advance Directives Directive None Recorded Payers Encounter Date Sequence Insurance Name Policy Number Policy Valladares Covered Member ID Valladares Member ID Guarantor Name 11/07/2018 1 [facility] [employer] [facility] - DIRECT CONNECTORCARE TYPE I (HMO) [id number] Brett Saldivar [id number] Brett Saldivar 12/19/2018 1 [facility] [employer] [facility] - DIRECT CONNECTORCARE TYPE I (HMO) [id number] Brett Saldivar [id number] Brett Saldivar 09/21/2019 1 [facility] - DIRECT CONNECTORCARE TYPE I (HMO) [id number] Brett Saldivar [id number] Brett Saldivar 07/24/2020 1 [facility] - DIRECT CONNECTORCARE TYPE I (HMO) [id number] Brett Saldivar [id number] Brett Saldivar
--- OUTSIDE RECORDS SUMMARY | 2024-02-29 00:26 | XMS_ITS | Patient Health Record ---
Author Organization [facility] Address [address] [place], [place] [id number] Support Name Relationship Address Phone [facility] [address] [place] [address] Brett Saldivar Guarantor Unknown Unavailable Reason For Referral No Information Immunizations Vaccine Route Administration Date Status Comme nts PPD ID Intradermal 05/24/2007 Administered returned 05/26/2007 negative Problems Problem Type SNOMED Code ICD Code Onset Dates Problem Status W/U Status Risk Notes Problem Tobacco use (834113536) Tobacco use disorder (305.1) Active confirmed Plan Of Treatment No Information Medical (General) History Medical History History ICD Code smoker family hx of HTN
== END 2024-02-23 09:42 | disposition home or self-care (01) ==
DX: E13.9 Other specified diabetes mellitus without complications (principal); I10 Essential (primary) hypertension; R00.0 Tachycardia, unspecified; D64.9 Anemia, unspecified; K92.0 Hematemesis; R09.82 Postnasal drip; Z23 Encounter for immunization

== ENCOUNTER → 2024-02-23 08:38 | Outpatient (BNVA) | payer OTHER, SELFPAY | DX: E13.9 Other specified diabetes mellitus without complications (principal); I10 Essential (primary) hypertension; R00.0 Tachycardia, unspecified; D64.9 Anemia, unspecified; K92.0 Hematemesis; R09.82 Postnasal drip; Z28.21 Immunization not carried out because of patient refusal | CPT/HCPCS: 83036; 90471; 96127 ==

== ENCOUNTER 2024-03-30 10:48 | Outpatient (AMB) | payer OTHER, SELFPAY ==
--- OUTSIDE RECORDS SUMMARY | 2024-03-30 10:58 | XMS_ITS | Patient Health Record ---
Author Organization [facility] Address [address] [place], [place] [phone] Support Name Relationship Address Phone MarcellusMaikol Emergency Contact [address] [place] [address] Brett Saldivar Guarantor Unknown Unavailable Reason For Referral No Information Immunizations Vaccine Route Administration Date Status Comme nts PPD ID Intradermal 05/24/2007 Administered returned 05/26/2007 negative Problems Problem Type SNOMED Code ICD Code Onset Dates Problem Status W/U Status Risk Notes Problem Tobacco use (707609419) Tobacco use disorder (305.1) Active confirmed Plan Of Treatment No Information Medical (General) History Medical History History ICD Code smoker family hx of HTN
--- OUTSIDE RECORDS SUMMARY | 2024-03-30 10:58 | XMS_ITS | Data Portability ---
Author Organization [facility] [address] Address [address] [place] [address] Assessment No assessment recorded. Plan of Treatment [...] Diagnosis/Indication Diagnosis SNOMED-CT Code Diagnosis ICD10 Code Diagnosis Note [id number] [address] [place] [address] 09/07/2018 10:50:09 09/07/2018 11:28:41 [id number] [address] [address] 07/24/2020 08:14:08 07/24/2020 09:11:00 [id number] [address] [place] [address] 09/21/2019 08:16:28 09/21/2019 08:52:04 [id number] [address] [place] [address] 08/21/2018 08:34:28 08/21/2018 09:44:22 [id number] [address] [place] [address] 11/07/2018 13:00:55 11/07/2018 14:01:32 [id number] [address] [place] [address] 12/19/2018 17:29:28 12/19/2018 18:19:27 [id number] [address] [place] [address] 01/15/2018 19:42:49 01/15/2018 20:04:11 [id number] [address] [place] [address] 11/23/2017 16:38:47 11/23/2017 17:15:18 Health Concerns Section Related Observation LastModified by Organization Detai ls LastModified Time None Recorded Concern Status LastModified by Organization Details LastModified Time None Recorded Advance Directives Directive None Recorded Payers Encounter Date Sequence Insurance Name Policy Number Policy Valladares Covered Member ID Valladares Member ID Guarantor Name 11/07/2018 1 [email or web address] [employer] [facility] - DIRECT CONNECTORCARE TYPE I (HMO) [id number] Brett Saldivar [id number] Brett Saldivar 12/19/2018 1 [facility] [[email or web address] [employer] [facility] - DIRECT CONNECTORCARE TYPE I (HMO) [id number] Brett Saldivar [id number] Brett Saldivar 09/21/2019 1 [facility] - DIRECT CONNECTORCARE TYPE I (HMO) [id number] Brett Saldivar [id number] Brett Saldivar 07/24/2020 1 [facility] - DIRECT CONNECTORCARE TYPE I (HMO) [id number] Brett Saldivar [id number] Brett Saldivar
[2024-03-30 10:59] VITALS: BP 172/102; PULSE 106; BMI 29.9
--- NOTE | 2024-03-30 10:59 | A.OFFVIS_ITS ---
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 Last Podiatry exam was on: Patient does not see a Oracle Developer Most recent HbA1c: 10.6%, 02/23/2024 Random Glucose- 370 mg/dL, Today Processing Engineer Required: No Accompanied by: Self / Same As Patient Allergies Penicillins Allergy (Unknown, Verified 04/04/24 11:46) Unknown Medication List - Last Reconciled 04/12/24 by Teresita Remy NP albuterol sulfate 90 mcg/actuation 2 puffs inhalation QID blood sugar diagnostic (FreeStyle Lite Strips) QID blood sugar diagnostic (FreeStyle Lite Strips) tid prn sensor failure, confirm glucose blood-glucose meter (FreeStyle Lite Meter kit) 3 times daily prn sensor failure blood-glucose sensor (FreeStyle Carolin 3 Plus Sensor device) continous change every 15 days fluticasone propionate 50 mcg/actuation (Flonase Allergy Relief) 1 spray intranasal DAILY furosemide 20 mg PO DAILY 14 days insulin glargine (Lantus Solostar U-100 Insulin) 22 units subcut BEDTIME insulin lispro (Humalog KwikPen (U-100) Insulin) subcutaneously 3 to 4 times a day; 80-150 4 units 151-200 6 units 201-250 8 units 251-300 10 units over 300 12 units If scale is not working can increase by 2 units 90 days lancets 4 times daily lancets (Microlet Lancet) tid lancets (FreeStyle Lancets) 3 times a day prn sensor failure or to confirm glucose dispense as 32 g if available lancing device with lancets (Microlet 2 Lancing Device kit) tid losartan 25 mg See Protocol PO DAILY montelukast 10 mg PO BEDTIME 30 days omeprazole 20 mg PO DAILY pen needle, diabetic (Pen Needle) QID HPI Comments Details: [age] YO male who is seen in consultation for T2DM at the request of PCP. He would like to consider going on an insulin pump. Patient was admitted to the hospital in January with hyperglycemia, metabolic alkalosis and acute respiratory failure secondary to COVID-19 infection. He was discharged on basal bolus insulin. Hemoglobin A1c 02/23/2024 10.6% Initially diagnosed with T2DM 2021 Was initially started on treatment with glipizide Current regimen Lantus 18 units Humalog] 151-200 2 units 201-250 4 units 251-300 6 units 301-350 8 units over 350 10 units Checks sugars 2-3 Average sugar: 200+ Range: occ 130 in the am mostly over 200, lunch can be as high as 300 same with supper Does not have a glucose sensor Reports low sugars none recent Most recent A1C 10.6% on 02/23/24 Family history of T2DM in mother and maternal grandmother. Has eye checked yearly, last eye exam Denies retinopthy + Neuropathy:Has some numbness and tingling , last foot exam today, Does not see podiatry No known nephropathy, on ARB 01/2024 eGFR>60 no prior microalbumin in chart Not on statin no lipid profile in chart [Denies] CAD. Diet: balanced Weight: now stable (had lost 30 pounds) diabetes education:none PFSH Medical History Anemia Diabetes 1.5, managed as type 2 Surgical History H/O oral surgery Family History Mother No problems noted. Father Stroke Social History Household Members: Significant Other Housing: House Do you presently have visiting nurse or other home services: No Alcohol intake: current Alcohol intake frequency: holidays/special occasions only Alcohol type: wine Patient Tobacco Use Status: Never used Tobacco Tobacco use type: Cigarette e-Cigarette/Vaping Use: Never Used Second Hand Smoke Exposure: No service: No Current occupational status: employed Current occupational exposures/hazards: No Cognitive needs: No Hearing needs: No Vision needs: Yes Physical Exam Vital Signs: Last Vital Signs Pulse 106 H 03/30/24 10:59 BP 172/102 H 03/30/24 10:59 BMI result Body Mass Index 29.9 Absence of Cushingoid features. Absence of acromegalic features. Neck exam reveals nl size thyroid about 15 gms. No thyroid nodules palpable. No carotid bruits present. Lungs CTA. Heart S1 S2, Reg R/R. No M/R/ G. Skin exam reveals absence of vitiligo or acanthosis nigricans. Abdominal exam reveals Soft NT/ND with NA BS. No organomegaly present. Const Other: Absence of Cushingoid features. Absence of acromegalic features. Neck exam reveals nl size thyroid about 15 gms. No thyroid nodules palpable. No carotid bruits present. Lungs CTA. Heart S1 S2, Reg R/R. No M/R G. Skin exam reveals absence of vitiligo or acanthosis nigricans. No edema Neck Other: . Extrem Other: Visual exam of foot performed. No ulcerations or open lesions. No onchomycosis, no callouses.Pulses 2 + distally Sensation intact to monofilament exam. Vibratory sensation sensed is intact with 128 Hz tuning fork Results Reviewed Results Reviewed: Laboratory Last Values Glucose (Clinic) 370 mg/dL (60-115) H* 03/30/24 11:09 Assessment & Plan Assessment & Plan (1) Diabetes 1.5, managed as type 2: Comment: [facility] 2023 Code(s): E13.9 - Other specified diabetes mellitus without complications Category: Medical Plan: 49-year-old type 2 diabetic previously treated on glipizide with recent hyperglycemia requiring hospitalization. He is now on basal bolus insulin and is having readings for the most part in the 200+ range. Obtain C-peptide, lakisha D and insulin antibodies Freestyle Carolin 3 sensor ordered Can consider Cequr or insulin pump Sliding-scale insulin adjusted upward. New dosing Lantus 22 Humalog sliding scale 80-150 4 units 151-200 6 units 201-250 8 units 251-300 10 units over 300 12 units If scale isn't working can increase 151-300 by 2 units can also increase Lantus every few days by 2-3 units to lower am readings to 130's He was advised to start sensor and if morning sugars were greater than 160 he could increase his Lantus by 2 units every 3 days. After increasing Lantus if scale is not working he can up the scale by 2 units starting at the 151-200. The patient had an opportunity to ask questions regarding treatment plan. The patient expressed understanding and agreement with the above treatment plan. The patient is aware they should contact our office by phone for worsening glucose readings or for any low blood sugars which may warrant a change in diabetes medication. Compliance is encouraged with medications and any followup testing/consults which may have been ordered. Orders: Orders Islet Cell Antibody Scrn/Titer 03/30/24 E13.9 - Other specified diabetes mellitus without complications C Peptide 03/30/24 E13.9 - Other specified diabetes mellitus without complications Glutamic acid decarboxylase Ab 03/30/24 E13.9 - Other specified diabetes mellitus without complications Medications: New blood-glucose sensor (FreeStyle Carolin 3 Plus Sensor device) continous change every 15 days 6 ea 3RF E13.9 - Other specified diabetes mellitus without complications blood sugar diagnostic (Contour Next Test Strips) up to tid 50 ea 1RF E13.9 - Other specified diabetes mellitus without complications [contour lancets] up to tid 50 ea 1RF E13.9 - Other specified diabetes mellitus without complications Discontinued blood-glucose meter Discontinued Reason: Doctor's Order As directed 1 ea 0RF E13.9 - Other specified diabetes mellitus without complications insulin lispro Discontinued Reason: Duplicate See Protocol subcut USEASDIRECTD 15 mL 3RF lancets Discontinued Reason: Doctor's Order up to three times daily 100 ea 6RF E13.9 - Other specified diabetes mellitus without complications lancing device with lancets Discontinued Reason: Doctor's Order As directed up to 3 times daily 1 ea 0RF E13.9 - Other specified diabetes mellitus without complications Patient Instructions: The patient was counseled to achieve a target A1C of 7% (154 avg). Fasting blood sugars should be 90-130 in the morning and less than 180 two hours after meals. Reviewed the relationship between poor diabetic control and the development of complications. Carry a sugar source Check your feet daily looking for any signs of infection, ulceration and seek medical attention if this occurs. Break in shoes gradually and do not wear open-toed shoes or walk barefooted. Coding Level of Care Code New Pt Level 5 (53538) Diagnoses Diabetes 1.5, managed as type 2 E13.9 Time Spent (min) 45 Comment Time spent reviewing labs/provider notes, face to face, chart doc
[2024-03-30 11:18] LABS: Glucose, Whole Blood 370 mg/dL (60-115)
== END 2024-03-30 12:04 | disposition home or self-care (01) ==
PROVIDERS: Visit Provider Nurse Practitioner Adult Health
DX: E13.9 Other specified diabetes mellitus without complications (principal)
CPT/HCPCS: 99204

== ENCOUNTER → 2024-03-30 10:48 | Outpatient (BNVA) | payer OTHER, SELFPAY | PROVIDERS: Visit Provider Nurse Practitioner Adult Health | DX: E13.9 Other specified diabetes mellitus without complications (principal); Z79.4 Long term (current) use of insulin | CPT/HCPCS: 82947 ==

== ENCOUNTER 2024-04-04 11:10 | Outpatient (AMB) | payer OTHER, SELFPAY ==
[2024-04-04 11:24] VITALS: BP 158/110; PULSE 113; TEMP 36.2; O2SAT 99; BMI 31.6
--- NOTE | 2024-04-04 11:24 | A.OFFPC_ITS ---
Vital Signs 04/04/24 11:24 Height 5 ft 4.17 in Weight 185 lb BMI 31.6 BP 158/110 H Blood Pressure Location Lt brachial Position Sitting Pulse 113 H Pulse Source Pulse Oximeter Temp 97.1 F Temp Source Temporal Artery Scan Pulse Oximetry (%) 99 Oxygen Delivery Method Room Air Intake Visit Reasons: establish care Intake Note: Patient is a new patient here to establish care for DM and HTN. Transferring care from Rachel Dias MD from [facility]. Medical records have been requested today. 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 Accompanied by: Self / Same As Patient Allergies Penicillins Allergy (Unknown, Verified 04/04/24 11:46) Unknown Medication List - Last Reconciled 04/04/24 by Juan Pablo Conteh PA-C albuterol sulfate 90 mcg/actuation 2 puffs inhalation QID blood sugar diagnostic (FreeStyle Lite Strips) QID blood sugar diagnostic (FreeStyle Lite Strips) tid prn sensor failure, confirm glucose blood-glucose meter (FreeStyle Lite Meter kit) 3 times daily prn sensor failure blood-glucose sensor (FreeStyle Carolin 3 Plus Sensor device) continous change every 15 days fluticasone propionate 50 mcg/actuation (Flonase Allergy Relief) 1 spray intranasal DAILY insulin glargine (Lantus Solostar U-100 Insulin) 22 units subcut BEDTIME lancets 4 times daily lancets (FreeStyle Lancets) 3 times a day prn sensor failure or to confirm glucose dispense as 32 g if available losartan 25 mg See Protocol PO DAILY omeprazole 20 mg PO DAILY pen needle, diabetic (Pen Needle) QID Tobacco use date assessed: 04/04/24 Dental Screening Dental Screen Date: 04/04/24 Did you have a dental visit in the last 12 months?: Yes Did you have a dental problem in the last 6 months where you did not have access to dental care?: No Was dental information given to patient?: Patient has dentist HPI establish care HPI Details Patient is a 49-year-old male here today for transfer of care visit. Previous PCP was at the [facility]. Patient has a past medical history significant for hypertension, diabetes, hyperlipidemia Concern--> since his hospitalization and having COVID he has been having intermittent episodes of morning throat and chest congestion point he usually needs to vomiting at least once then is good for the rest of the day. On physical exam today did notes slight crackles in the left lung base today. .. Diabetes: Now followed by [facility]. Most recent A1c above 10. Now has a CGM he reports sugars are up and down he admits to dietary indiscretion and has been trying to work on a lower carbohydrate diet. Does admit to bilateral lower extremity and feet numbness, more recently been having a sensation of tightness in his hands and issues with his fine motor which may related to neuropathy as well. .. HTN: Patient's blood pressure on today office. He continues on losartan 25 mg. Does not regularly monitor his blood pressure at home. He feels he may have a white coat hypertension though will start monitoring blood pressure at home. While on hospital in the fall of 2023 it was found to concerns for ischemia on on EKG. He was to follow up with the Cardiology though has not made an appointment. .. Tachycardia: Patient continues to have slightly elevated heart rates 90s to 1 10s. Again will try to have him follow up with Cardiology. [facility] Medical History Anemia Diabetes 1.5, managed as type 2 Surgical History H/O oral surgery Family History Mother No problems noted. Father Stroke Social History Household Members: Significant Other Housing: House Do you presently have visiting nurse or other home services: No Alcohol intake: current Alcohol intake frequency: holidays/special occasions only Alcohol type: wine Patient Tobacco Use Status: Never used Tobacco Tobacco use type: Cigarette e-Cigarette/Vaping Use: Never Used Second Hand Smoke Exposure: No service: No Current occupational status: employed Current occupational exposures/hazards: No Cognitive needs: No Hearing needs: No Vision needs: Yes Questionnaire PHQ-9 Over the last 2 weeks, how often have you been bothered by any of the following problems? 1. Little interest or pleasure in doing things: not at all 2. Feeling down, depressed, or hopeless: not at all 3. Trouble falling or staying asleep, or sleeping too much: not at all 4. Feeling tired or having little energy: several days 5. Poor appetite or overeating: not at all 6. Feeling bad about yourself - or that you are a failure or have let yourself or your family down: several days 7. Trouble concentrating on things, such as reading the newspaper or watching television: several days 8. Moving or speaking so slowly that other people could have noticed. Or the opposite - being so fidgety or restless that you have been moving around a lot more than usual: not at all 9. Thoughts that you would be better off or of hurting yourself in some way: not at all Total score: 3 Depression Screening Interpretation: Positive Depression Screening Follow-up: Existing condition Depression Screening Done: Yes 60938 - PHQ-9 Billing: Yes Source: Developed by Drs. Zain Cadet, Terrie Chauhan, Jorden Boudreaux and colleagues, with an educational ash from [employer]. Thrive Questionnaire Date Thrive assessed: 04/04/24 I am a: Patient What is your living situation today?: I have a steady place to live Within the past 12 months, did the food you bought not last and you didn't have the money to get more?: I choose not to answer this question Within the past 12 months, did you worry whether your food would run out before you got money to buy more?: I choose not to answer this question Do you have trouble paying for medicines?: No Do you have trouble getting transportation to medical appointments?: No Do you have trouble paying your heating and electricity bill?: No Do you have trouble taking care of your child, family member or friend?: No Do you have trouble with day-to-day activities such as bathing, preparing meals, shopping, managing finances, etc.?: No Are you currently unemployed and looking for a job?: No Are you interested in more education?: No Please select the resources that you would like help with: None Currently or been in a relationship where the following occur: No concerns reported THRIVE Score: 0 AUDIT C Alcohol Use Questionnaire (AUDIT-C) 1. How often do you have a drink containing alcohol?: Monthly or less 2. How many drinks containing alcohol do you have on a typical day when you are drinking?: 1 or 2 3. How often do you have six or more drinks on one occasion?: Less than monthly Total Score: 2 RIVER-7 AMB Questionnaire RIVER-7 Date RIVER - 7 assessed: 04/04/24 Feeling nervous, anxious, or on edge: 1 = Several days Not being able to stop or control worryin = Several days Worrying too much about different things: 1 = Several days Trouble relaxin = Not at all Being so restless that it is hard to sit still: 0 = Not at all Becoming easily annoyed or irritable: 1 = Several days Feeling afraid as if something awful might happen: 1 = Several days Total RIVER-7 score (0-4 normal; 5-9 mild; 10-14 moderate; 15-21 severe): 5 Source: Developed by Drs. Zain Cadet, Terrie Chauhan, Jorden Boudreaux and colleagues, with an educational ash from [employer]. RIVER-7 Assessment Billing RIVER-7 Assessment Tool: RIVER-7 Assessment 86652 Review of Systems Const Denies headache(s) Eyes Denies loss of vision ENT Denies vertigo, Denies dizziness, Denies headache(s) and Denies sore throat Card Denies chest pain, Denies leg edema and Denies lightheadedness Resp Denies cough, Denies hemoptysis and Denies wheezing GI Denies abdominal pain, Denies melena, Denies constipation, Denies diarrhea and Denies vomiting Denies dysuria, Denies urinary frequency and Denies urinary urgency Musc Denies arthralgias, Denies joint swelling, Denies numbness and Denies tingling Neuro Denies Abnormal speech present, Denies behavioral changes, Denies vertigo, Denies dizziness, Denies headache(s), Denies loss of vision, Denies memory loss, Denies numbness and Denies tingling Psych Denies anxiety, Denies behavioral changes, Denies depression, Denies memory loss and Denies panic attacks Roel/Lymph Denies easy bleeding and Denies easy bruising Aller/Immun Denies wheezing Physical exam (Primary Care) Vital Signs: Last Vital Signs Temp 97.1 F 04/04/24 11:24 Pulse 113 H 04/04/24 11:24 BP 158/110 H 04/04/24 11:24 Pulse Ox 99 04/04/24 11:24 Oxygen Delivery Method Room Air 04/04/24 11:24 BMI result Body Mass Index 31.6 Tobacco/Smoking Status: Tobacco use Status Tobacco use date assessed 04/04/24 04/04/24 11:38 Patient Tobacco Use Status Never used Tobacco 04/04/24 11:27 Tobacco use type Cigarette 04/04/24 11:27 e-Cigarette/Vaping Use Never Used 04/04/24 11:27 PHQ-9: PHQ-9 Score PHQ-9: Total score 3 04/04/24 14:16 Depression Screening Interpretation: Positive Depression Screening Follow-up: Existing condition Thrive Assessment: Date of Thrive Assessment Date Thrive assessed 04/04/24 04/04/24 11:32 Currently or been in a relationship where the following occur: No concerns reported Const General: healthy appearing, no acute distress, alert and awake Nutritional Appearance: well nourished Orientation/consciousness: oriented to person, oriented to place and oriented to time HENMT Ears: TM's normal bilaterally General nose exam: Normal nasal mucous membranes and turbinates present Eyes Conjunctivae: conjunctivae normal Sclerae: sclerae normal Pupils: Equal, round and reactive pupils present Neck Neck: Yes no lymphadenopathy and Yes no JVD Thyroid: Thyroid normal Carotids: no bruits Resp Other: CRACKLES NOTED LEFT LUNG BASE Effort & Inspection: normal respiratory effort and not tachypneic Auscultation: no crackles, no rales, no rhonchi and no wheezes Cardio Rate: regular rate Rhythm: regular rhythm Heart sounds: no murmurs and normal S1 and S2 GI Palpation (GI): Soft to palpation, nontender, no hepatomegaly and no splenomegaly Auscultation: normal bowel sounds Skin General skin exam: no rashes or lesions noted and dry skin Neuro General: oriented to person, oriented to place and oriented to time Cranial nerves: Yes Equal, round and reactive pupils present Speech: No Abnormal speech present Gait exam (Neuro): Normal gait present Motor exam (neuro): no tremor noted Extrem Right upper extremity: full ROM Left upper extremity: full ROM Right lower extremity: full ROM; no edema Left lower extremity: full ROM; no edema Psych Mental Status: mental status grossly normal Speech and movement: Normal speech and movement present Affect: normal affect Attitude: cooperative Thought process: Normal thought process present Coding Level of Care Code Est Pt Level 4 (20814) Diagnoses Diabetes 1.5, managed as type 2 E13.9 Tachycardia R00.0 Cardiac ischemia I25.9 SOBOE (shortness of breath on exertion) R06.02 Allergy, subsequent encounter T78.40XD Encounter type: subsequent encounter Additional Codes RIVER-7 Assessment Billing - RIVER-7 Assessment Tool: RIVER-7 Assessment 14175 ( [id number]) PHQ-9 - 86027 - PHQ-9 Billing: Yes ([id number]) Assessment & Plan Assessment & Plan (1) Diabetes 1.5, managed as type 2: Comment: [facility] 2023 Code(s): E13.9 - Other specified diabetes mellitus without complications Category: Medical Plan: Now has establish with [facility]. Now is using a continues glucose monitor which has been helpful. He is trying to follow a lower carbohydrate diet. Does have some workup to do with endocrinology to figure out his type of diabetes. (2) Tachycardia: Code(s): R00.0 - Tachycardia, unspecified Category: Medical Plan: As per HPI has been found to have tachycardia indicated on his and/or wrist watch. Will be following up with Cardiology (3) Cardiac ischemia: Code(s): I25.9 - Chronic ischemic heart disease, unspecified Category: Medical Plan: Was noted to have cardiac ischemia on EKG while hospitalized. In the setting of his elevated blood pressure and type 2 uncontrolled diabetes Will send for Fer protocol cardiac stress test to evaluate for ischemia on exertion (4) SOBOE (shortness of breath on exertion): Code(s): R06.02 - Shortness of breath Category: Medical Plan: As above will try to send patient for Fer protocol cardiac stress test to evaluate for cardiac ischemia in the setting of his uncontrolled type 2 diabetes and high blood pressure. (5) Allergies: Code(s): T78.40XA - Allergy, unspecified, initial encounter Category: Medical Qualifiers: Encounter type: subsequent encounter Qualified Code(s): T78.40XD - Allergy, unspecified, subsequent encounter Plan: He does admit to having a cat at home. He does have some chest and throat c ongestion in the mornings that caused him to vomit. Will supply patient with nasal spray and allergy medication in case of a allergic component. Also noted some slight crackles on physical exam today. Will supply patient with a 2 week course of furosemide Orders: Orders XR chest 2V Today R06.02 - Shortness of breath Resp Allergy Profile Region I Today R05.9 - Cough, unspecified, T78.40XD - Allergy, unspecified, subsequent encounter CA stress test Today R06.02 - Shortness of breath IgE Antibody (Anti-IgE IgG) Today T78.40XD - Allergy, unspecified, subsequent encounter Medications: New furosemide 20 mg PO DAILY 14 days 14 tabs 0RF R06.02 - Shortness of breath montelukast 10 mg PO BEDTIME 30 days 30 tabs 1RF T78.40XD - Allergy, unspecified, subsequent encounter Refilled fluticasone propionate 50 mcg/actuation (Flonase Allergy Relief) administer into each nostril 1 spray intranasal DAILY 16 grams 2RF T78.40XD - Allergy, unspecified, subsequent encounter Patient Instructions: Goal: Controlled type 2 diabetes, A1c do below 7.0 Barriers: Adherence to physical activity and healthy eating habits
--- OUTSIDE RECORDS SUMMARY | 2024-04-04 13:13 | XMS_ITS | Data Portability ---
Author Organization [facility] [address] Address [address] [place] [address] Assessment No assessment recorded. Plan of Treatment [...] SNOMED-CT Code Diagnosis ICD10 Code Diagnosis Note [id number] [address] [place] [address] 09/07/2018 10:50:09 09/07/2018 11:28:41 [id number] [address] [address] 07/24/2020 08:14:08 07/24/2020 09:11:00 [id number] [address] [place] [address] 0 09/21/2019 08:16:28 09/21/2019 08:52:04 [id number] [address] [place] [address] 0 08/21/2018 08:34:28 08/21/2018 09:44:22 [id number] [address] [place] [address] 11/07/2018 13:00:55 11/07/2018 14:01:32 [id number] [address] [place] [address] 12/19/2018 17:29:28 12/19/2018 18:19:27 [id number] [address] [place] [address] 01/15/2018 19:42:49 01/15/2018 20:04:11 [id number] [address] [place] [address] 11/23/2017 16:38:47 11/23/2017 17:15:18 Health Concerns Section Related Observation LastModified by Organization Detai ls LastModified Time None Recorded Concern Status LastModified by Organization Details LastModified Time None Recorded Advance Directives Directive None Recorded Payers Encounter Date Sequence Insurance Name Policy Number Policy Valladares Covered Member ID Valladares Member ID Guarantor Name 11/07/2018 1 [facility] [employer] [facility] - DIRECT CONNECTORCARE TYPE I (HMO) [id number] Brett Saldivar [id number] Brett Saldivar 12/19/2018 1 [facility] [employer] [facility] - DIRECT CONNECTORCARE TYPE I (HMO) [id number] Brett Saldivar [id number] Brett Saldivar 09/21/2019 1 [facility]CARE TYPE I (HMO) [id number] Brett Saldivar [id number] Brett Saldivar 07/24/2020 1 [facility] TYPE I (HMO) [id number] Brett Saldivar [id number] Brett Saldivar
== END 2024-04-04 12:14 | disposition home or self-care (01) ==
PROVIDERS: Visit Provider Physician Assistant
DX: E13.9 Other specified diabetes mellitus without complications (principal); R00.0 Tachycardia, unspecified; I25.9 Chronic ischemic heart disease, unspecified; R06.02 Shortness of breath; T78.40XD Allergy, unspecified, subsequent encounter

== ENCOUNTER → 2024-04-04 11:10 | Outpatient (BNVA) | payer OTHER, SELFPAY | PROVIDERS: Visit Provider Physician Assistant | DX: E13.9 Other specified diabetes mellitus without complications (principal); R00.0 Tachycardia, unspecified; I25.9 Chronic ischemic heart disease, unspecified; R06.02 Shortness of breath; T78.40XD Allergy, unspecified, subsequent encounter; I10 Essential (primary) hypertension; Z79.899 Other long term (current) drug therapy | CPT/HCPCS: 96127 ==

== ENCOUNTER 2024-05-08 15:19 | Outpatient (AMB) | payer OTHER, SELFPAY ==
--- NOTE | 2024-05-08 08:56 | A.OFFVIS_ITS ---
Vital Signs 05/08/24 15:21 Height 5 ft 6 in Weight 196 lb 10.437 oz BMI 31.7 BP 168/98 H Blood Pressure Location Rt femoral Position Sitting Pulse 106 H Pulse Source Pulse Oximeter Pulse Oximetry (%) 99 Oxygen Delivery Method Room Air Intake Visit Reasons: Other specified diabetes mellitus without complica Intake Note: Patient present today for Type 2 Diabetes Mellitus Last Diabetic eye exam: 2023 Last Podiatry Visit: 06/2024 Random Glucose: 133 mg/dl HgA1C: 10.6% 02/23/24 Acquisitions Assistant Required: No Accompanied by: Self / Same As Patient Allergies Penicillins Allergy (Unknown, Verified 05/08/24 15:26) Unknown Medication List - Last Reconciled 05/08/24 by Teresita Remy NP albuterol sulfate 90 mcg/actuation 2 puffs inhalation QID blood sugar diagnostic (FreeStyle Lite Strips) QID blood sugar diagnostic (FreeStyle Lite Strips) tid prn sensor failure, confirm glucose blood-glucose meter (FreeStyle Lite Meter kit) 3 times daily prn sensor failure blood-glucose sensor (FreeStyle Carolin 3 Plus Sensor device) continous change every 15 days fluticasone propionate 50 mcg/actuation (Flonase Allergy Relief) 1 spray intranasal DAILY furosemide 20 mg PO DAILY 14 days insulin glargine (Lantus Solostar U-100 Insulin) 26 units subcut BEDTIME insulin lispro (Humalog KwikPen (U-100) Insulin) subcutaneously 3 to 4 times a day; 80-150 4 units 151-200 6 units 201-250 8 units 251-300 10 units over 300 12 units If scale is not working can increase by 2 units 90 days lancets 4 times daily lancets (Microlet Lancet) tid lancets (FreeStyle Lancets) 3 times a day prn sensor failure or to confirm glucose dispense as 32 g if available lancing device with lancets (Microlet 2 Lancing Device kit) tid losartan 50 mg See Protocol PO DAILY 180 days montelukast 10 mg PO BEDTIME 30 days omeprazole 20 mg PO DAILY pen needle, diabetic (Pen Needle) QID HPI Comments Details: [age] YO male who is seen in f/u for T2DM. He was seen on 03/30/2024 to re-establish care. Most recent A1c 02/23/2024 10.6%. At his initial visit he expressed an interest in going on an insulin pump. Basal bolus insulin was adjusted upward at his initial visit and a prescription for freestyle Carolin 3+ was given. C-peptide and insulin antibodies were ordered to confirm diagnosis which have not yet been completed. Was initially started on treatment with glipizide which was discontinued when he was started on basal bolus insulin. Patient was admitted to the hospital in January with hyperglycemia, metabolic alkalosis and acute respiratory failure secondary to COVID-19 infection. He was discharged on basal bolus insulin. Initially diagnosed with T2DM 2021 Lantus 24 units Humalog] 151-200 2 units 201-250 4 units 251-300 6 units 301-350 8 units over 350 10 units average in 180's 140-160 am, occ lower at night gradually going up towards the afternoon and through the evening. Reports low sugars none recent Family history of T2DM in mother and maternal grandmother. Denies retinopathy: eye checked yearly, last eye exam + Neuropathy:Has some numbness and tingling has appt with poditry in june No known nephropathy, on ARB 01/2024 eGFR>60 no prior microalbumin in chart Not on statin no lipid profile in chart [Denies] CAD. Diet: balanced Weight: now stable (had lost 30 pounds) diabetes education:none [facility] Medical History (Updated 05/08/24 @ 09:13 by Teresita Remy NP) Diabetes mellitus Anemia Diabetes 1.5, managed as type 2 Surgical History H/O oral surgery Family History Mother No problems noted. Father Stroke Social History Household Members: Significant Other Housing: House Do you presently have visiting nurse or other home services: No Alcohol intake: current Alcohol intake frequency: holidays/special occasions only Alcohol type: wine Patient Tobacco Use Status: Never used Tobacco Tobacco use type: Cigarette e-Cigarette/Vaping Use: Never Used Second Hand Smoke Exposure: No service: No Current occupational status: employed Current occupational exposures/hazards: No Cognitive needs: No Hearing needs: No Vision needs: Yes Physical Exam Vital Signs: Last Vital Signs Pulse 106 H 05/08/24 15:21 BP 168/98 H 05/08/24 15:21 Pulse Ox 99 05/08/24 15:21 Oxygen Delivery Method Room Air 05/08/24 15:21 BMI result Body Mass Index 31.7 Const Other: Absence of Cushingoid features. Absence of acromegalic features. Neck exam reveals nl size thyroid about 15 gms. No thyroid nodules palpable. No carotid bruits present. Lungs CTA. Heart S1 S2, Reg R/R. No M/R G. Skin exam reveals absence of vitiligo or acanthosis nigricans. No edema Assessment & Plan Assessment & Plan (1) Diabetes mellitus: Code(s): E11.9 - Type 2 diabetes mellitus without complications Category: Medical Plan: 49-year-old diabetic with neuropathy with a A1c in February of 10.6%. He is on basal bolus insulin 1 and now that he is on a sensor it is looking like his numbers are dropping overnight to only increase fairly dramatically in the afternoon through the evening indicating that Lantus is not providing 24 hour coverage. We will send a prescription for Tresiba 26 units And will increase his sliding scale by 2 unit 80-150 6 units 151-200 8 units 201-250 10 units 251-300 12 units over 300 14 units can increase Tresiba angelica 2 days by 2 units to get a readings less than 130. He will have C-peptide and insulin antibodies done if truly type 2 can consider glp-1 agonist if no cotraindications. He is also considering an insulin pump if type 1 (2) Hypertension: Code(s): I10 - Essential (primary) hypertension Category: Medical Plan: Poor control on losartan 25. He was advised to decrease sodium in his diet and to lose 10 lb. He will increase his losartan to 50 mg and has follow up appointment with his PCP. Medications: New insulin degludec (Tresiba FlexTouch U-200 insulin) 26 units (0.13 mL) subcut BEDTIME 90 days 12 mL 3RF Changed From losartan 25 mg See Protocol PO DAILY 90 tabs 2RF To losartan 50 mg See Protocol PO DAILY 180 days 360 tabs 2RF Patient Instructions: The patient was counseled to achieve a target A1C of 7% (154 avg). Fasting blood sugars should be 90-130 in the morning and less than 180 two hours after meals. Reviewed the relationship between poor diabetic control and the development of complications. Take 15 carb carbohydrate grams to treat a low sugar (3-4 glucose tablets, half a glass of juice or 15 carbohydrate grams of soft candy such as gummie snacks). Recheck your sugar in 15 minutes and re-treat again with 15 carbohydrate grams if low or still with symptoms. Do not drive a car or operate machinery if you do not know what your blood sugar is, if it is low or in excess of 300. Sick day management was reviewed. Check your feet daily looking for any signs of infection, drainage, redness, ulceration and seek medical attention if this occurs. Break in shoes gradually and do not wear open-toed shoes or walk stocking footed or barefooted. Coding Level of Care Code Est Pt Level 5 (71744) Complex EM visit Add On G2211 Diagnoses Diabetes mellitus E11.9 Hypertension I10 Time Spent (min) 55 Comment Time spent reviewing labs/provider notes, face to face, chart doc
[2024-05-08 15:21] VITALS: BP 168/98; PULSE 106; O2SAT 99; BMI 31.7
--- OUTSIDE RECORDS SUMMARY | 2024-05-08 16:12 | XMS_ITS | Data Portability ---
Author Organization [facility] [address] Address [address] [place] [address] Assessment No assessment recorded. Plan of Treatment [...] SNOMED-CT Code Diagnosis ICD10 Code Diagnosis Note [id number] [address] [place] [address] 09/07/2018 10:50:09 09/07/2018 11:28:41 [id number] [address] [address] 07/24/2020 08:14:08 07/24/2020 09:11:00 [id number] [address] [place] [address] 0 09/21/2019 08:16:28 09/21/2019 08:52:04 [id number] [address] [place] [address] 08/21/2018 08:34:28 08/21/2018 09:44:22 [id number] [address] [place] [address] 11/07/2018 13:00:55 11/07/2018 14:01:32 [id number] [address] [place] [address] 12/19/2018 17:29:28 12/19/2018 18:19:27 [id number] [address] [place] [address] 01/15/2018 19:42:49 01/15/2018 20:04:11 [id number] [address] [place] [address] 11/23/2017 16:38:47 11/23/2017 17:15:18 Health Concerns Section Related Observation LastModified by Organization Detai ls LastModified Time None Recorded Concern Status LastModified by Organization Details LastModified Time None Recorded Advance Directives Directive None Recorded Payers Encounter Date Sequence Insurance Name Policy Number Policy Valladares Covered Member ID Valladares Member ID Guarantor Name 11/07/2018 1 [facility] e(ye)[facility] DIRECT CONNECTORCARE TYPE I (HMO) [id number] Brett Saldivar [id number] 1 Brett Saldivar 12/19/2018 1 [facility] e(ye)[facility] DIRECT CONNECTORCARE TYPE I (HMO) [id number] Brett Saldivar [id number] Brett Saldivar 09/21/2019 1 [facility] - DIRECT CONNECTORCARE TYPE I (HMO) [id number] Brett Saldivar [id number] Brett Saldivar 07/24/2020 1 [facility] - DIRECT CONNECTORCARE TYPE I (HMO) [id number] Brett Saldivar [id number] Brett Saldivar
--- OUTSIDE RECORDS SUMMARY | 2024-05-08 16:12 | XMS_ITS ---
Author Organization [facility] Address [address] [place] [address] Care Team Providers Care Biometrics Specialist Name Role Phone Juan Pablo Conteh Primary Care Provider Unavailab Althea Chan Unavailable [phone] REASON FOR VISIT PCP Notes Entered Encounters Encounter Location Date Provider Diagnosis [address] [address] 05/03/2024 Althea Maldonado Plan Of Treatment Next Appt Details Provider Name:Althea tan, 07/09/2024 09:30:00 AM, [address] [place] [address], [phone], Progress Notes * Brett SALDIVARDOB:1975 ([age] yo M)Acc No.[id number]:05/03/2024 Patient:?Brett SALDIVAR :1975???Age:49 Y???Sex:Male Address:[address] [place] [address], [address] * true * Date:? Generated for Printi ng/Fadelonteg/eTransmitting on:?05/08/2024 04:12 PM EST
--- OUTSIDE RECORDS SUMMARY | 2024-05-08 16:13 | XMS_ITS | Encounter Summary ---
Author Organization [facility] Address [address] [place] [address] Care Team Providers Care Canal Structure Operator Name Role Phone Karla Whaley MD Primary Care Provider Unav ailable Reason for Referral * Non DARY (Routine) - Authorized/Booked Specialty Diagnoses / Procedures Referred By Gianluca amato Referred To Contact Podiatry Procedures REFERRAL TO PODIATRY Karla Whaley MD [facility]/[address] [address] Referral ID Status Reason Start Date Expiration Date V isits Requested Visits Authorized [id number] Authorized/B ooked 10/11/2016 10/11/2017 12 12 Reason for Visit * Reason Onset Date Comments Casework Specialist Feedback 10/11/2016 internal podiatr y Encounter Details Date Type Department Care Team Description 10/11/2016 Telephone Adult Medicine [address] [address] Karla Whaley MD Casework Specialist Feedback (internal podiatry) Social History Tobacco Use Types Packs/Day Years Used Date Smoking Tobacco: Former Cigarettes Q uit: 01/31/2012 Alcohol Use Standard Drinks/Week Comments Yes 0 (1 standard drink = 0.6 oz pur e alcohol) rare social Sex Assigned at Date Recorded Not on file documented as of this encounter Miscellaneous Notes * Telephone Encounter - Lisa Galarza - 10/11/2016 4:19 PM EDT Ok to wait * Telephone Encounter - Antwan Velasquez - 10/11/2016 4:09 PM EDT Please review this patients new referral request. The referral has been pended. Please complete thefollowing: If approved> sign order If denied>please give instructions and route to your practice nursing pool. Practice nurse should inform referrals and the patient if denied. * Telephone Encounter - Madelin Bernardo - 10/11/2016 4:05 PM EDT Request for a referral to a [facility] Specialist for a patient with a [facility] PCP. If patient does NOT have a [facility] PCP they must obtain a referral from their PCP before being seen-do not submit request to Referrals department-contact patient. Lawson FARRELL and Rishabh FARRELL should not see patients with community PCP's as they are not billed as specialists. Specialty patient is being referred to: podiatry Name of Specialist patient is seeing: anyone in [place] office Reason/diagnosis for visit: foot pain, diabetic foot check Date of appoinment: tbd If retro, date referral needs to start: Karla Whaley Payor: [facility] / Plan: [facility] ICT PLAN / Product Type: HMO [id number] documented in this encounter Plan of Treatment Not on file documented as of this encounter Visit Diagnoses Not on filedocumented in this encounter Care Teams Canal Structure Operator Relationship Specialty Start Date End Date Karla Whaley MD PCP - General Internal Medicine 07/09/16 documented as of this encounter
--- OUTSIDE RECORDS SUMMARY | 2024-05-08 16:13 | XMS_ITS | Patient Health Record ---
Author Organization [facility] Laura godfrey [place] Address [address] [place] [address] Care Team Providers Care News Library Director Name Role Phone Juan Pablo Conteh Primary Care Provider UnavailAlthea Sullivan Unavailable [phone] Allergies Allergen (clinical drug ingredient) Drug/Non Drug Allergy documented on EMR Reaction Allergy Type Onset Date Status Penicillin Unknown Drug Allergy Active Reason For Referral No Information Social History Tobacco use other than smoking: Question Answer Notes Are you an other tobacco user? No AUDIT-C (Standard) Question Answer Notes Did you have a drink contain ing alcohol in the past year? Yes How often did you have a dri nk containing alcohol in the past year? Never (0 point) How many drinks did you have on a typical day when you were drinking in the past year? 1 or 2 drinks (0 point) How often did you have six o r more drinks on one occasion in the past year? Never (0 point) Points 0 Interpretation Negative Encounters Encounter Location Date Provider Diagnosis [address] [address] 05/03/2024 Althea Maldonado Plan Of Treatment Next Appt Details Provider Name:Althea tan, 07/09/2024 09:30:00 AM, [address] [place], [address], Insurance Providers Payer Name Payer Address Payer Phone Subscriber Number Group Number Insured Name Patient Relationship to Insured Coverage Start Date Coverage End Date [facility] [address] [facility] [place] [id number] Brett Saldivar Self - patient is the insured Medical (General) History Medical History History ICD Code Anemia Diabetic HTN Tachycardia Hematemesis Post-nasal Drip Surgical History Surgery Date(Month/Year) oral surgery
--- OUTSIDE RECORDS SUMMARY | 2024-05-08 16:13 | XMS_ITS | Clinical Summary ---
Author Organization [facility] Address [address] [place] [address] Care Team Providers Care Electronic Masking System Operator Name Role Phone Karla Whaley MD Primary Care Provider Unav ailable Allergies Active Allergy Reactions Severity Noted Date Comments Egg Yolk 07/30/2016 Medications Medication Sig Dispensed Refills Start Date End Date Status triamcinolone (KENALOG) 0.1 % cream apply affected area twice a day. 30 g 2 07/30/2016 Active ranitidine (ZANTAC) 150 MG tablet TAKE 1 TABLET BY MOUTH TWICE A DAY 60 Tab 0 05/16/2018 Active ranitidine (ZANTAC) 150 MG tablet TAKE 1 TABLET BY MOUTH TWICE A DAY 60 Tab 0 07/24/2018 Active Active Problems Problem Noted Date Uncontrolled type 2 diabetes mellitus without complication, without long-term current use of insulin 08/03/2016 Hyperlipidemia 08/03/2016 Depression with anxiety 07/30/2016 IBS (irritable bowel syndrome) 7 GERD (gastroesophageal reflux disease) 0 07/30/2016 Chronic pain of left knee 07/30/2016 Umbilical hernia 07/30/2016 Eczema 07/30/2016 Immunizations Name Administration Dates Next Due Tdap 07/30/2016 Family History Medical History Relation Name Comments Alcohol and Other Drug Abuse Brother 2 alcohol, now sober [place] Brother 3 CAD Maternal Grandmother CHF Maternal Grandmother Diabetes Maternal Grandmother Glaucoma Maternal Grandmother Pneumonia Mother kidney failure [Other] Mother Relation Name Status Comments Brother 1 Alive Brother 2 Brother 3 Father unknown Maternal Grandmother (Age 71) Mother (Age 33) Social History Tobacco Use Types Packs/Day Years Used Date Smoking Tobacco: Former Cigarettes Q uit: 01/31/2012 Alcohol Use Standard Drinks/Week Comments Yes 0 (1 standard drink = 0.6 oz pur e alcohol) rare social Sex Assigned at Date Recorded Not on file Last Filed Vital Signs Vital Sign Reading Time Taken Comments Blood Pressure 122/80 09/23/2016 1:13 PM EDT Pulse 82 07/30/2016 8:52 AM EDT Temperature - - Respiratory Rate - - Oxygen Saturation - - Inhaled Oxygen Concentration - - Weight 85.1 kg (187 lb 9.6 oz) 09/23/2016 1:13 P M EDT Height 167.6 cm (5' 6 ) 09/23/2016 1:13 PM EDT Body Mass Index 30.28 09/23/2016 1:13 PM EDT Plan of Treatment Health Maintenance Due Date Last Done Comments Covid-19 Vaccine (#1) 1975 DIABETES: ANNUAL EYE EXAM 1991 DIABETES: ANNUAL FOOT EXAM 1991 DIABETES: ANNUAL URINE PROTE IN TEST (MICROALBUMIN) 1991 DIABETES: BLOOD SUGAR CONTRO L TEST (HGBA1C) 1991 TOBACCO CHECK/ADVISE 1991 PNEUMOCOCCAL VACCINE FOR HIG H RISK PATIENTS (#1) 02/13/1992 DIABETES/HEART DISEASE: NISHI AL CHOLESTEROL (LDL) 07/30/2017 07/30/2016 BASELINE HEALTH EXAM 40-64 07/30/2018 07/30/2016 COLON CANCER SCREENING 2023 SHINGLES VACCINE (1 of 2) 2023 INFLUENZA (#1) 2023 BMI CHECK/ADVISE 03/21/2024 09/23/2016, 07/30/2016 DTAP/TDAP/TD (2 - Td or Tdap) 07/30/2026 07/30/2016 Care Teams Electronic Masking System Operator Relationship Specialty Start Date End Date Karla Whaley MD PCP - General Internal Medicine 07/09/16
[2024-05-09 07:29] LABS: Glucose, Whole Blood 133 mg/dL (60-115)
== END 2024-05-08 16:01 | disposition home or self-care (01) ==
PROVIDERS: PCP Physician Assistant; Visit Provider Nurse Practitioner Adult Health
DX: E11.9 Type 2 diabetes mellitus without complications (principal); I10 Essential (primary) hypertension
CPT/HCPCS: 99215

== ENCOUNTER → 2024-05-08 15:19 | Outpatient (BNVA) | payer OTHER, SELFPAY | PROVIDERS: PCP Physician Assistant; Visit Provider Nurse Practitioner Adult Health | DX: E11.40 Type 2 diabetes mellitus with diabetic neuropathy, unspecified (principal); I10 Essential (primary) hypertension; Z79.4 Long term (current) use of insulin; Z79.899 Other long term (current) drug therapy | CPT/HCPCS: 82947 ==

== ENCOUNTER 2024-05-17 10:38 | Outpatient (AMB) | payer OTHER, SELFPAY ==
[2024-05-17 10:56] VITALS: BP 130/86; PULSE 111; TEMP 36.2; O2SAT 99; BMI 31.2
--- NOTE | 2024-05-17 10:56 | A.OFFPC_ITS ---
Vital Signs 05/17/24 10:56 Height 5 ft 6 in Weight 193 lb 6 oz BMI 31.2 BP 130/86 Blood Pressure Location Rt brachial Position Sitting Pulse 111 H Pulse Source Pulse Oximeter Temp 97.1 F Temp Source Temporal Artery Scan Pulse Oximetry (%) 99 Oxygen Delivery Method Room Air Intake Visit Reasons: f/u HTN/ DMII Central Office Technician Required: No Accompanied by: Self / Same As Patient Allergies Penicillins Allergy (Unknown, Verified 05/17/24 11:06) Unknown Medication List - Last Reconciled 05/17/24 by Juan Pablo Conteh PA-C albuterol sulfate 90 mcg/actuation 2 puffs inhalation QID blood sugar diagnostic (FreeStyle Lite Strips) QID blood sugar diagnostic (FreeStyle Lite Strips) tid prn sensor failure, confirm glucose blood-glucose meter (FreeStyle Lite Meter kit) 3 times daily prn sensor failure blood-glucose sensor (FreeStyle Carolin 3 Plus Sensor device) continous change every 15 days fluticasone propion-salmeterol 250-50 mcg/dose (Wixela Inhub) inhalation fluticasone propionate 50 mcg/actuation (Flonase Allergy Relief) 1 spray intranasal DAILY furosemide 20 mg PO DAILY 14 days insulin degludec (Tresiba FlexTouch U-200 insulin) 26 units (0.13 mL) subcut BEDTIME 90 days insulin lispro (Humalog KwikPen (U-100) Insulin) subcutaneously 3 to 4 times a day; 80-150 4 units 151-200 6 units 201-250 8 units 251-300 10 units over 300 12 units If scale is not working can increase by 2 units 90 days lancets 4 times daily lancets (Microlet Lancet) tid lancets (FreeStyle Lancets) 3 times a day prn sensor failure or to confirm glucose dispense as 32 g if available lancing device with lancets (Microlet 2 Lancing Device kit) tid losartan 50 mg See Protocol PO DAILY 180 days montelukast 10 mg PO BEDTIME 30 days omeprazole 20 mg PO DAILY pen needle, diabetic (Pen Needle) QID Tobacco use date assessed: 04/04/24 Dental Screening Dental Screen Date: 04/04/24 HPI f/u HTN/ DMII HPI Details Patient is a 49-year-old male here today for follow-up visit. Patient has a past medical history significant for hypertension, diabetes, hyperlipidemia Unfortunately patient recently lost his job . Concern--> He recently started experiencing respiratory symptoms consistent with viral bronchitis, characterized by a dry cough evolving to a productive one, fatigue, and disrupted sleep. He has received pharmaceutical management including Wixella (Advair), albuterol, and Mucinex to address these symptoms. The onset of current symptoms began last Tuesday, and the treatment response remains partial. .. Diabetes: Now followed by [facility]. Most recent A1c above 10. Now has a CGM he reports sugars are up and down he admits to dietary indiscretion and has been trying to work on a lower carbohydrate diet. Recently followed up with his scientific informatics leader in increased his insulin doses. Does admit to bilateral lower extremity and feet numbness, more recently been having a sensation of tightness in his hands and issues with his fine motor which may related to neuropathy as well. .. HTN: Patient's blood pressure acceptable on today office. His losartan was increased to 50 mg and blood pressure seems to be better controlled.. Does not regularly monitor his blood pressure at home. While on hospital in the fall of 2023 it was found to concerns for ischemia on on EKG. He was to follow up with the Cardiology though has not made an appointment. .. Tachycardia: Patient continues to have slightly elevated heart rates 90s to 110s. Again will try to have him follow up with Cardiology. .. Anxiety: Has noted to be a bit anxious has late. He was on mental health medications in the past. He is open to the idea of talking to someone about his anxiety. He is also interested in starting SSRI therapy on a daily basis to help reduce his anxious symptoms. [facility] Medical History (Updated 05/17/24 @ 11:22 by Juan Pablo Conteh PA-C) Diabetes mellitus Anemia Diabetes 1.5, managed as type 2 Surgical History H/O oral surgery Family History Mother No problems noted. Father Stroke Social History Household Members: Significant Other Housing: House Do you presently have visiting nurse or other home services: No Alcohol intake: current Alcohol intake frequency: holidays/special occasions only Alcohol type: wine Patient Tobacco Use Status: Never used Tobacco Tobacco use type: Cigarette e-Cigarette/Vaping Use: Never Used Second Hand Smoke Exposure: No service: No Current occupational status: employed and unemployed Current occupational exposures/hazards: No Cognitive needs: No Hearing needs: No Vision needs: Yes Questionnaire PHQ-9 Over the last 2 weeks, how often have you been bothered by any of the following problems? 1. Little interest or pleasure in doing things: not at all 2. Feeling down, depressed, or hopeless: not at all 3. Trouble falling or staying asleep, or sleeping too much: not at all 4. Feeling tired or having little energy: not at all 5. Poor appetite or overeating: not at all 6. Feeling bad about yourself - or that you are a failure or have let yourself or your family down: not at all 7. Trouble concentrating on things, such as reading the newspaper or watching television: not at all 8. Moving or speaking so slowly that other people could have noticed. Or the opposite - being so fidgety or restless that you have been moving around a lot more than usual: not at all 9. Thoughts that you would be better off or of hurting yourself in some way: not at all Total score: 0 Depression Screening Interpretation: Negative Depression Screening Done: Yes 36490 - PHQ-9 Billing: Yes Source: Developed by Drs. Zain Cadet, Terrie Chauhan, Jorden Boudreaux and colleagues, with an educational ash from [employer]. Thrive Questionnaire Date Thrive assessed: 04/25/24 I am a: Patient What is your living situation today?: I have a steady place to live Within the past 12 months, did the food you bought not last and you didn't have the money to get more?: I choose not to answer this question Within the past 12 months, did you worry whether your food would run out before you got money to buy more?: I choose not to answer this question Do you have trouble paying for medicines?: No Do you have trouble getting transportation to medical appointments?: No Do you have trouble paying your heating and electricity bill?: No Do you have trouble taking care of your child, family member or friend?: No Do you have trouble with day-to-day activities such as bathing, preparing meals, shopping, managing finances, etc.?: No Are you currently unemployed and looking for a job?: No Are you interested in more education?: No Please select the resources that you would like help with: None Currently or been in a relationship where the following occur: No concerns reported THRIVE Score: 0 AUDIT C Alcohol Use Questionnaire (AUDIT-C) 1. How often do you have a drink containing alcohol?: Monthly or less 2. How many drinks containing alcohol do you have on a typical day when you are drinking?: 1 or 2 3. How often do you have six or more drinks on one occasion?: Less than monthly Total Score: 2 RIVER-7 AMB Questionnaire RIVER-7 Date RIVER - 7 assessed: 05/17/24 Feeling nervous, anxious, or on edge: 0 = Not at all Not being able to stop or control worryin = Not at all Worrying too much about different things: 0 = Not at all Trouble relaxin = Not at all Being so restless that it is hard to sit still: 0 = Not at all Becoming easily annoyed or irritable: 0 = Not at all Feeling afraid as if something awful might happen: 0 = Not at all Total RIVER-7 score (0-4 normal; 5-9 mild; 10-14 moderate; 15-21 severe): 0 Source: Developed by Drs. Zain Cadet, Terrie Chauhan, Jorden Boudreaux and colleagues, with an educational ash from [employer]. RIVER-7 Assessment Billing RIVER-7 Assessment Tool: RIVER-7 Assessment 14637 Review of Systems Const Denies headache(s) Eyes Denies loss of vision ENT Denies vertigo, Denies dizziness, Denies headache(s) and Denies sore throat Card Denies chest pain, Denies leg edema and Denies lightheadedness Resp Reports chest congestion, Reports cough, Denies hemoptysis and Denies wheezing GI Denies abdominal pain, Denies melena, Denies constipation, Denies diarrhea and Denies vomiting Denies dysuria, Denies urinary frequency and Denies urinary urgency Musc Denies arthralgias, Denies joint swelling, Denies numbness and Denies tingling Neuro Denies Abnormal speech present, Denies behavioral changes, Denies vertigo, Denies dizziness, Denies headache(s), Denies loss of vision, Denies memory loss, Denies numbness and Denies tingling Psych Denies anxiety, Denies behavioral changes, Denies depression, Denies memory loss and Denies panic attacks Roel/Lymph Denies easy bleeding and Denies easy bruising Aller/Immun Denies wheezing Physical exam (Primary Care) Vital Signs: Last Vital Signs Temp 97.1 F 05/17/24 10:56 Pulse 111 H 05/17/24 10:56 BP 130/86 05/17/24 10:56 Pulse Ox 99 05/17/24 10:56 Oxygen Delivery Method Room Air 05/17/24 10:56 BMI result Body Mass Index 31.2 Tobacco/Smoking Status: Tobacco use Status Tobacco use date assessed 04/04/24 05/17/24 10:58 Patient Tobacco Use Status Never used Tobacco 05/17/24 10:58 Tobacco use type Cigarette 05/17/24 10:58 e-Cigarette/Vaping Use Never Used 05/17/24 10:58 PHQ-9: PHQ-9 Score PHQ-9: Total score 0 05/17/24 13:42 Depression Screening Interpretation: Negative Thrive Assessment: Date of Thrive Assessment Date Thrive assessed 04/25/24 05/17/24 11:01 Currently or been in a relationship where the following occur: No concerns reported Const General: healthy appearing, no acute distress, alert and awake Nutritional Appearance: well nourished Orientation/consciousness: oriented to person, oriented to place and oriented to time HENMI Ears: TM's normal bilaterally General nose exam: Normal nasal mucous membranes and turbinates present Eyes Conjunctivae: conjunctivae normal Sclerae: sclerae normal Pupils: Equal, round and reactive pupils present Neck Neck: Yes no lymphadenopathy and Yes no JVD Thyroid: Thyroid normal Carotids: no bruits Resp Effort & Inspection: normal respiratory effort and not tachypneic Auscultation: no crackles, no rales, no rhonchi and no wheezes Cardio Rate: regular rate Rhythm: regular rhythm Heart sounds: no murmurs and normal S1 and S2 GI Palpation (GI): Soft to palpation, nontender, no hepatomegaly and no splenomegaly Auscultation: normal bowel sounds Skin General skin exam: no rashes or lesions noted and dry skin Neuro General: oriented to person, oriented to place and oriented to time Cranial nerves: Yes Equal, round and reactive pupils present Speech: No Abnormal speech present Gait exam (Neuro): Normal gait present Motor exam (neuro): no tremor noted Extrem Right upper extremity: full ROM Left upper extremity: full ROM Right lower extremity: full ROM; no edema Left lower extremity: full ROM; no edema Psych Mental Status: mental status grossly normal Speech and movement: Normal speech and movement present Affect: normal affect Attitude: cooperative Thought process: Normal thought process present Coding Level of Care Code Est Pt Level 4 (03391) Diagnoses Type 2 diabetes mellitus with diabetic polyneuropathy, with long-term current use of insulin E11.42; Z79.4 Diabetes mellitus complication detail: with polyneuropathy Diabetes mellitus complication status: with neurologic complications Diabetes mellitus mcc insulin use: with mcc use Diabetes mellitus type: type 2 Primary hypertension I10 Hypertension type: primary hypertension Simple chronic bronchitis J41.0 COPD type: chronic bronchitis Chronic bronchitis type: simple RIVER (generalized anxiety disorder) F41.1 Additional Codes RIVER-7 Assessment Billing - RIVER-7 Assessment Tool: RIVER-7 Assessment 93401 ([id number]) PHQ-9 - 96275 - PHQ-9 Billing: Yes ([id number]) Assessment & Plan Assessment & Plan (1) Diabetes mellitus: Code(s): E11.9 - Type 2 diabetes mellitus without complications Category: Medical Qualifiers: Diabetes mellitus complication detail: with polyneuropathy Diabetes mellitus complication status: with neurologic complications Diabetes mellitus mcc insulin use: with mcc use Diabetes mellitus type: type 2 Qualified Code(s): E11.42 - Type 2 diabetes mellitus with diabetic polyneuropathy; Z79.4 - care home (current) use of insulin Plan: Patient has uncontrolled type 2 diabetes. Has been working with [facility] about this. He insulin doses has been increased recently. He is still reports erratic blood sugars those not do consistent with his preprandial insulin doses (2) Hypertension: Code(s): I10 - Essential (primary) hypertension Category: Medical Qualifiers: Hypertension type: primary hypertension Qualified Code(s): I10 - Essential (primary) hypertension Plan: Patient's blood pressure acceptable today in office. He is continuing on losartan 50 mg which is seemingly controlling his blood pressure bit better. Goal blood pressure to remain below 140/90 (3) COPD (chronic obstructive pulmonary disease): Code(s): J44.9 - Chronic obstructive pulmonary disease, unspecified Category: Medical Qualifiers: COPD type: chronic bronchitis Chronic bronchitis type: simple Qualified Code(s): J41.0 - Simple chronic bronchitis Plan: Patient continues to have some chest congestion. He is a former smoker for 20 years. He did have a hospitalization for bad COVID infection in January of 2024. It appears he may have an diagnosis of COPD and thus he with has been started on Wixela recently which may help. Will try to set him up with pulmonology for pulmonary evaluation some pulmonary function testing. (4) RIVER (generalized anxiety disorder): Code(s): F41.1 - Generalized anxiety disorder Category: Medical Plan: As per HPI patient seems to be suffering with anxious symptoms. He has will open to the idea starting SSRI therapy and the mental health therapist. Follow up in 4 weeks to evaluate the effectiveness of the medication. Orders: Orders PFT pulmonary function test Today J44.9 - Chronic obstructive pulmonary disease, unspecified Referrals Pulmonology Referral J44.9 - Chronic obstructive pulmonary disease, unspecified Counseling Referral F41.1 - Generalized anxiety disorder Medications: New sertraline 25 mg PO DAILY 30 tabs 1RF 30 days F41.1 - Generalized anxiety disorder Refilled losartan 50 mg See Protocol PO DAILY 360 tabs 2RF 180 days I10 - Essential (primary) hypertension
--- OUTSIDE RECORDS SUMMARY | 2024-05-17 12:38 | XMS_ITS | Encounter Summary ---
Author Organization [employer] Address [address] [facility] [address] [place] [address] Care Team Providers Care Tool Chaser Name Role Phone Unavailable Primary Care Provider Unavailabl e Reason for Visit * Reason Comments Med Refill Encounter Details Date Type Department Care Team ([facility] st Contact Info) Description 10/29/2023 Refill [facility] [address] [place] [address] Charley Mendez DO [address] [place] [address] Social History Tobacco Use Types Packs/Day Years Used Date Smoking Tobacco: Former Cigarettes Smokeless Tobacco: Never Sex and Gender Information Value Date Recorded Sex Assigned at Male 01/18/2022 10:37 AM EDT Legal Sex Male 10:37 AM EDT Gender Identity Male 01/18/2022 10:37 AM EDT Sexual Orientation Straight 01/18/2022 10 :37 AM EDT documented as of this encounter Plan of Treatment Not on file documented as of this encounter Visit Diagnoses Not on filedocumented in this encounter
--- OUTSIDE RECORDS SUMMARY | 2024-05-17 12:38 | XMS_ITS | Encounter Summary ---
Author Organization [facility] Address [address] [place] [address] Care Team Providers Care County Auditor Name Role Phone Karla Whaley MD Primary Care Provider Unav ailable Encounter Details Date Type Department Care Team Description 07/30/2016 Release of Information Medical Records [address] [place] [id number] Abstract, Provider Social History Tobacco Use Types Packs/Day Years Used Date Smoking Tobacco: Former Cigarettes Q uit: 01/31/2012 Alcohol Use Standard Drinks/Week Comments Yes 0 (1 standard drink = 0.6 oz pur e alcohol) rare social Sex Assigned at Date Recorded Not on file documented as of this encounter Plan of Treatment Not on file documented as of this encounter Visit Diagnoses Not on filedocumented in this encounter Care Teams County Auditor Relationship Specialty Start Date End Date Karla Whaley MD PCP - General Internal Medicine 07/09/16 documented as of this encounter
--- OUTSIDE RECORDS SUMMARY | 2024-05-17 12:38 | XMS_ITS | Encounter Summary ---
Author Organization [employer] Address [address] [facility] [address] [place] [address] Care Team Providers Care Spike Maker Name Role Phone Gianna Vazquez MD Primary Care Provider [phone] Reason for Visit * Reason Onset Date Comments triage 02/23/2022 Encounter Details Date Type Department Care Team ([facility] st Contact Info) Description 02/23/2022 Telephone [facility] [address] [place], [place] [id number] Gianna Vazquez MD [address] [place], [place] [id number] triage Social History Tobacco Use Types Packs/Day Years Used Date Smoking Tobacco: Never Assessed Sex and Gender Information Value Date Recorded Sex Assigned at Male 01/18/2022 10:37 AM EDT Legal Sex Male 10:37 AM EDT Gender Identity Male 01/18/2022 10:37 AM EDT Sexual Orientation Straight 01/18/2022 10 :37 AM EDT COVID-19 Exposure Response Date Recorded In the last 10 days, have yo u been in contact with someone who was confirmed or suspected to have Coronavirus/COVID-19? No / Unsure 02/24/2022 2:36 PM EST documented as of this encounter Miscellaneous Notes * Telephone Encounter - Malika Lambert LPN - 02/23/2022 4:48 PM EST Pt verified by last name and .. reports a pimple that started on face two weeks ago report pimple is getting infected and this is common for patient. Repots I seen Dr Dias in the past and she prescribed be antibiotic. Pt made aware no available appt. Pt agree to be see at [facility]. Per protocol. Protocol Used: Face Swelling (Adult) Protocol-Based Disposition: Go to Office or Video Visit Now Video visit offer not recorded Positive Triage Question: * Looks infected (e.g., spreading redness, pus) * All higher-acuity triage questions were negative Care Advice Discussed: * Reassurance and Education - Mild Face Swelling * Avoid Allergens * Reasons To Call Back * Telephone Encounter - Harjit Stoner - 02/23/2022 11:30 AM EST Symptoms: Face Swelling, Pain - Severe Outcome: Schedule an urgent appointment (within 1 hour) or talk to a nurse or provider soon Reason: No high acuity concerns reported by caller The caller accepted this outcome Please contact pt at [phone] documented in this encounter Plan of Treatment Not on file documented as of this encounter Visit Diagnoses Not on filedocumented in this encounter Care Teams Spike Maker Relationship Specialty Start Date End Date Gianna Vazquez MD [address] [place] [id number] PCP - General Family Medicine 06/30/20 11/09/22 documented as of this encounter
--- OUTSIDE RECORDS SUMMARY | 2024-05-17 12:38 | XMS_ITS | Patient Health Record ---
Author Organization [facility] [place] Address [address] [place] [address] Care Team Providers Care Transport Operations Inspector Name Role Phone Juan Pablo Conteh Primary Care Provider UnavailAlthea Sullivan Unavailable [phone] Allergies Allergen (clinical drug ingredient) Drug/Non Drug [...] Negative Encounters Encounter Location Date Provider Diagnosis [address] [address] 05/03/2024 Althea Maldonado Plan Of Treatment Next Appt Details Provider Name:Althea tan, 07/09/2024 09:30:00 AM, [address] [place], [address], Insurance Providers Payer Name Payer Address Payer Phone Subscriber Number Group Number Insured Name Patient Relationship to Insured Coverage Start Date Coverage End Date [facility] [address] [facility] [place] [id number] [phone] [id number] Brett Saldivar Self - patient is the insured Medical (General) History Medical History History ICD Code Anemia Diabetic HTN Tachycardia Hematemesis Post-nasal Drip Surgical History Surgery Date(Month/Year) oral surgery
--- OUTSIDE RECORDS SUMMARY | 2024-05-17 12:38 | XMS_ITS | Encounter Summary ---
Author Organization [employer] Address [address] [facility] [place] [address] Care Team Providers Care Thread Milling Machine Set Up Operator Name Role Phone Gianna Vazquez MD Primary Care Provider [phone] Encounter Details Date Type Department Care Team (Late st Contact Info) Description 06/18/2022 Orders Only [facility] [address] [place] [address] Charley Fernando LPN Social History Tobacco Use Types Packs/Day Years [...] on filedocumented in this encounter Care Teams Thread Milling Machine Set Up Operator Relationship Specialty Start Date End Date Gianna Vazquez MD [address] [place] [id number] PCP - General Family Medicine 06/30/20 11/09/22 documented as of this encounter
--- OUTSIDE RECORDS SUMMARY | 2024-05-17 12:38 | XMS_ITS | Encounter Summary ---
Author Organization [facility] Address [address] [place] [address] Care Team Providers Care School Treasurer Name Role Phone Karla Whaley MD Primary Care Provider Unav ailable Encounter Details Date Type Department Care Team Description 10/23/2016 Pt. Non Urgent Medical Question Adult Medicine [address] [address] Jameson Phelps PA-C Social History Tobacco Use Types Packs/Day Years Used Date Smoking Tobacco: Former Cigarettes Q uit: 01/31/2012 Alcohol Use Standard Drinks/Week Comments Yes 0 (1 standard drink = 0.6 oz pur e alcohol) rare social Sex Assigned at Date Recorded Not on file documented as of this encounter Progress Notes * Nneka Hays M.A. - 10/25/2016 8:14 AM EDTFrom: Brett Saldivra To: Jameson Phelps PA-C Sent: 10/23/2016 9:19 PM EDT Subject: Testosterone test Barrett Barba, I would like to get my testosterone tested to see if it is below normal levels. My psychologist suggest it as well. Let me know when we can set something up, thanks! Agapito documented in this encounter Plan of Treatment Not on file documented as of this encounter Visit Diagnoses Not on filedocumented in this encounter Care Teams School Treasurer Relationship Specialty Start Date End Date Karla Whaley MD PCP - General Internal Medicine 07/09/16 documented as of this encounter
--- OUTSIDE RECORDS SUMMARY | 2024-05-17 12:38 | XMS_ITS ---
Author Organization [facility] Address [address] [place] [address] Care Team Providers Care Retail Helper Name Role Phone Juan Pablo Conteh Primary Care Provider Unavailab Althea Chan Unavailable [phone] REASON FOR VISIT PCP Notes Entered Encounters Encounter Location Date Provider Diagnosis [address] [address] 05/03/2024 Althea Maldonado Plan Of Treatment Next Appt Details Provider Name:Althea tan, 07/09/2024 09:30:00 AM, [address] [place] [address], [phone], Progress Notes * Brett SALDIVARDOB:1975 ([age] yo M)Acc No.[id number]:05/03/2024 Patient:?Brett SALDIVAR :1975???Age:49 Y???Sex:Male Address:[address] [place] [address], [address] * true * Date:? Generated for Printi ng/Fadelonteg/eTransmitting on:?05/17/2024 12:38 PM EST
--- OUTSIDE RECORDS SUMMARY | 2024-05-17 12:39 | XMS_ITS | Clinical Summary ---
Author Organization [employer] Address [address] [facility] [address] [place] [address] Care Team Providers Care Assembler Wire Mesh Gate Name Role Phone Unavailable Primary Care Provider Unavailabl e Allergies Active Allergy Reactions Criticality Noted Date Comments Penicillin G 07/08/2023 Penicillins 02/24/2022 Medications glipiZIDE (Glucotrol) 5 MG tablet take 2 tablet by oral route before bkft and 2 tab before supper 2 Active glucose blood (FREESTYLE LITE) test strip 1 strip every 12 (twelve) hours. 1 Active insulin glargine (Lantus SoloStar) 100 UNIT/ML pen inject 18 Unit by subcutaneous route Q HS 2 Active metFORMIN (Glucophage) 1000 MG tablet Take 1 tablet by mouth every 12 (twelve) hours. take 1 tablet by oral route 2 times every day with morning and evening meals 1 Active azithromycin (Zithromax Z-Oli) 250 MG tabletIndicatio ns:Acute abscess of face Take 2 tablets once on day 1, then 1 tablet 1x/day for 4 days. 6 tablet 2 Active BD Pen Needle Eryn 2nd Gen 32G X 4 MM misc USE 1 PEN NEEDLE DAILY 100 each 3 3 Active prednisoLONE acetate (Pred-Forte) 1 % ophthalmic suspension Administer 1 drop into affected eye(s) 4 times daily. 4 Active Blood Pressure kit 1 each 2 times daily. 1 kit 4 07/08/19 25 Active Active Problems Problem Noted Date Diagnosed Date Hypertriglyceridemia 07/08/2023 Erectile dysfunction due to type 2 diabetes mellitus (CMS/HCC) 07/02/2020 Foot pain 07/02/2020 Type 2 diabetes mellitus 07/02/2020 Immunizations Name Administration Dates Next Due Tdap 07/30/2016,12/30/2010 Social History Tobacco Use Types Packs/Day Years Used Date Smoking Tobacco: Former Cigarettes Smokeless Tobacco: Never Tobacco Cessation:Counseling Given: Not Answered Sex and Gender Information Value Date Recorded Sex Assigned at Male 01/18/2022 10:37 AM EDT Legal Sex Male 10:37 AM EDT Gender Identity Male 01/18/2022 10:37 AM EDT Sexual Orientation Straight 01/18/2022 10 :37 AM EDT Last Filed Vital Signs Vital Sign Reading Time Taken Comments Blood Pressure 153/100 07/08/2023 11:42 AM EDT Pulse 110 07/08/2023 11:42 AM EDT Temperature 37.1 ??C (98.7 ??F) 07/08/2023 11:42 AM E DT Respiratory Rate 18 07/08/2023 11:42 AM EDT Oxygen Saturation 99% 07/08/2023 11:42 AM EDT Inhaled Oxygen Concentration - - Weight 87.1 kg (192 lb) 07/08/2023 11:42 AM EDT Height 167.6 cm (5' 6 ) 10/13/2020 12:07 AM EDT Body Mass Index 30.99 10/13/2020 12:07 AM EDT Plan of Treatment Health Maintenance Due Date Last Done Comments CT Colonography 1973 Colonoscopy 1973 Colorectal Cancer Screening 1973 Depression Screening 1973 FIT DNA/Cologuard 1973 FIT 1973 FOBT 1973 HIV Screening 1973 SDOH Screening 1973 Sigmoidoscopy 1973 Diabetes: Foot Exam 1983 Eye Exam 1983 Alcohol/Substance Use Screening 1985 Family Planning (PISQ) 02/13/1988 Hepatitis C Screening 1991 Hepatitis B Vaccines (1 of 3 - 19+ 3-dose series) 02/13/1992 Pneumococcal Vaccine: 50+ Years (1 of 2 - PCV) 02/13/1992 Diabetes: Hemoglobin A1C 09/30/2020 07/01/2020 Lipid Panel 07/01/2021 07/01/2020 Zoster Vaccines (1 of 2) 2023 COVID-19 Vaccine (1 - 2023-2 5 season) 2023 Influenza Vaccine (#1) 2023 Tobacco Screening 07/07/2024 07/08/2023 DTaP/Tdap/Td Vaccines (3 - T d or Tdap) 07/30/2026 07/30/2016, 12/30/2010 RSV Patients and Patients Aged 60 years or older (1 - 1-dose 75+ series) 02/13/2048 HIB Vaccines Aged Out No longer eligi ble based on patient's age to complete this topic HPV Vaccines Aged Out No longer eligi ble based on patient's age to complete this topic Hepatitis A Vaccines Aged Out No long er eligible based on patient's age to complete this topic IPV Vaccines Aged Out No longer eligi ble based on patient's age to complete this topic Meningococcal Vaccine Aged Out No alberta warren eligible based on patient's age to complete this topic RSV under 20 months Aged Out No longe r eligible based on patient's age to complete this topic Rotavirus Vaccines Aged Out No longer eligible based on patient's age to complete this topic Procedures Procedure Name Priority Date/Time Associated Diagnosis Comments HEMOGLOBIN A1C Routine 07/01/2020 2:18 PM EDT LIPID PANEL, STANDARD Routine 07/01/2020 2:18 PM EDT from Last 3 Months or Most Recently Relevant to Health Maintenance Results * (ABNORMAL) HEMOGLOBIN A1c (07/01/2020 2:18 PM EDT) Hemoglobin A1c 12.2(H) <5.7 % of total Hgb [facility] Comment: For someone without known diabetes, a hemoglobin A1c value of 6.5% or greater indicates that they may have ?? diabetes and this should be confirmed with a follow-up ?? test. ?? For someone with known diabetes, a value <7% indicates ?? that their diabetes is well controlled and a value ?? greater than or equal to 7% indicates suboptimal ?? control. A1c targets should be individualized based on ?? duration of diabetes, age, comorbid conditions, and ?? other considerations. ?? Currently, no consensus exists regarding use of hemoglobin A1c for diagnosis of diabetes for children. ?? 07/01/2020 2:18 PM EDT us Gianna Vazquez MD LAB BLOOD ORDERABLES Final Res ult [facility] [address] [place] [address], * (ABNORMAL) LIPID PANEL, STANDARD (07/01/2020 2:18 PM EDT) Chol/HDLC Ratio 5.7(H) <5.0 (calc) [facility] Cholesterol, Total 177 <200 mg/dL [facility] HDL Cholesterol 31(L) > OR = 40 mg/dL [facility] LDL Cholesterol SEE COMMENT mg/dL (calc) [facility] Comment: ?? LDL cholesterol not calculated. Triglyceride levels greater than 400 mg/dL invalidate calculated LDL results. ?? Reference range: <100 ?? Desirable range <100 mg/dL for primary prevention; ?? <70 mg/dL for patients with CHD or diabetic patients ?? with > or = 2 CHD risk factors. ?? LDL-C is now calculated using the Jose-Adair ?? calculation, which is a validated novel method providing ?? better accuracy than the Friedewald equation in the ?? estimation of LDL-C. ?? Jose HERRERA et al. CIPRIANO. 2013;310(19): 3907-0106 ?? (http://[employer].SOLARBRUSH/faq/BQW256) Non-HDL Cholesterol 146(H) <130 mg/dL (calc) [facility] Comment: For patients with diabetes plus 1 major ASCVD risk ?? factor, treating to a non-HDL-C goal of <100 mg/dL ?? (LDL-C of <70 mg/dL) is considered a therapeutic ?? option. Triglycerides 504(H) <150 mg/dL [facility] Comment: ?? If a non-fasting specimen was collected, consider repeat triglyceride testing on a fasting specimen if clinically indicated. ?? Juan et al. J. of Clin. Lipidol. 2015;9:129-169. ? There is increased risk of pancreatitis when the ?? triglyceride concentration is very high ?? (> or = 500 mg/dL, especially if > or = 1000 mg/dL). ?? Juan et al. J. of Clin. Lipidol. 2015;9:129-169. ?? 07/01/2020 2:18 PM EDT us Gianna Vazquez MD LAB BLOOD ORDERABLES Final Res ult [facility] [address] from Last 3 Months or Most Recently Relevant to Health Maintenance [facility]
== END 2024-05-17 11:36 | disposition home or self-care (01) ==
PROVIDERS: PCP Physician Assistant; Visit Provider Physician Assistant
DX: E11.42 Type 2 diabetes mellitus with diabetic polyneuropathy (principal); Z79.4 Long term (current) use of insulin; I10 Essential (primary) hypertension; J41.0 Simple chronic bronchitis; F41.1 Generalized anxiety disorder

== ENCOUNTER → 2024-05-17 10:38 | Outpatient (BNVA) | payer OTHER, SELFPAY | PROVIDERS: PCP Physician Assistant; Visit Provider Physician Assistant | DX: E11.42 Type 2 diabetes mellitus with diabetic polyneuropathy (principal); I10 Essential (primary) hypertension; J41.0 Simple chronic bronchitis; F41.1 Generalized anxiety disorder; Z79.4 Long term (current) use of insulin; Z79.899 Other long term (current) drug therapy | CPT/HCPCS: 96127 ==

== ENCOUNTER 2024-06-14 10:46 | Outpatient (AMB) | payer OTHER, SELFPAY ==
--- NOTE | 2024-06-14 11:09 | MHC.PC.OV ---
Intake Visit Reasons: 4 week f/u [place] Required: No Information Interpreted: non-clinical & clinical Audio Visual Facilities Engineer: Not Required per policy Accompanied by: Self / Same As Patient Allergies Penicillins Allergy (Unknown, Verified 06/14/24 11:18) Unknown Medication List - Last Reconciled 06/14/24 by Juan Pablo Conteh PA-C albuterol sulfate 90 mcg/actuation 2 puffs inhalation QID blood sugar diagnostic (FreeStyle Lite Strips) QID blood sugar diagnostic (FreeStyle Lite Strips) tid prn sensor failure, confirm glucose blood-glucose meter (FreeStyle Lite Meter kit) 3 times daily prn sensor failure blood-glucose sensor (FreeStyle Carolin 3 Plus Sensor device) continous change every 15 days fluticasone propion-salmeterol 250-50 mcg/dose (Wixela Inhub) inhalation fluticasone propionate 50 mcg/actuation (Flonase Allergy Relief) 1 spray intranasal DAILY furosemide 20 mg PO DAILY 14 days insulin degludec (Tresiba FlexTouch U-200 insulin) 26 units (0.13 mL) subcut BEDTIME 90 days insulin lispro (Humalog KwikPen (U-100) Insulin) subcutaneously 3 to 4 times a day; 80-150 4 units 151-200 6 units 201-250 8 units 251-300 10 units over 300 12 units If scale is not working can increase by 2 units 90 days lancets 4 times daily lancets (Microlet Lancet) tid lancets (FreeStyle Lancets) 3 times a day prn sensor failure or to confirm glucose dispense as 32 g if available lancing device with lancets (Microlet 2 Lancing Device kit) tid losartan 50 mg See Protocol PO DAILY 180 days montelukast 10 mg PO BEDTIME 30 days omeprazole 20 mg PO DAILY pen needle, diabetic (Pen Needle) QID sertraline 25 mg PO DAILY 30 days Tobacco use date assessed: 04/04/24 Dental Screening Dental Screen Date: 04/04/24 HPI 4 week f/u HPI Details Patient is a 49-year-old male being evaluated today via telephone. At last visit we discussed his overwhelming anxiety thus has started SSRI therapy. He reports he has not noted any bad effects SSRI therapy though has not noted much improvement in anxiety. He is still waiting on getting scheduled with a mental health therapist. He also reports he would like to see a your respiratory services manager for continued allergy workup. His previous respiratory services manager with not take has been insurance. [facility] Medical History Diabetes mellitus Anemia Diabetes 1.5, managed as type 2 Surgical History H/O oral surgery Family History Mother No problems noted. Father Stroke Social History Household Members: Significant Other Housing: House Do you presently have visiting nurse or other home services: No Alcohol intake: current Alcohol intake frequency: holidays/special occasions only Alcohol type: wine Patient Tobacco Use Status: Never used Tobacco Tobacco use type: Cigarette e-Cigarette/Vaping Use: Never Used Second Hand Smoke Exposure: No service: No Current occupational status: employed and unemployed Current occupational exposures/hazards: No Cognitive needs: No Hearing needs: No Vision needs: Yes Questionnaire Thrive Questionnaire Date Thrive assessed: 03/28/24 RIVER-7 AMB Questionnaire RIVER-7 Date RIVER - 7 assessed: 05/17/24 Source: Developed by Drs. Zain Cadet, Terrie Chauhan, Jorden Boudreaux and colleagues, with an educational ash from [employer]. Physical exam (Primary Care) Tobacco/Smoking Status: Tobacco use Status Tobacco use date assessed 04/04/24 06/14/24 11:11 Patient Tobacco Use Status Never used Tobacco 06/14/24 11:11 Tobacco use type Cigarette 06/14/24 11:11 e-Cigarette/Vaping Use Never Used 06/14/24 11:11 Thrive Assessment: Date of Thrive Assessment Date Thrive assessed 03/28/24 06/14/24 11:11 Telehealth Telehealth Telehealth Platform: Telephone Location of provider rendering services: practice address Location of patient: address on file Patient Identification confirmed using: Name, : Yes Telehealth method: voice only Patient verbally consented to treatment: Yes Patient verbally consented to billing insurance company: Yes Patient informed of any privacy concerns related to visit: Yes Minutes spent on Phone/Video with Pt.: 11 Coding Level of Care Code Tele Est Pt Level 4 (83856) Diagnoses RIVER (generalized anxiety disorder) F41.1 Assessment & Plan Assessment & Plan (1) RIVER (generalized anxiety disorder): Code(s): F41.1 - Generalized anxiety disorder Category: Medical Plan: Patient continues on sertraline 25 mg, he feels there is some effect though was not has noticeable. He would like to continue on current dose and be establish with a mental health therapist for talk therapy. Orders: Referrals Allergy & Immunology Referral T78.40XD - Allergy, unspecified, subsequent encounter Medications: Changed From losartan 50 mg See Protocol PO DAILY 180 days 360 tabs 2RF I10 - Essential (primary) hypertension To losartan 50 mg See Protocol PO DAILY 90 days 180 tabs 2RF I10 - Essential (primary) hypertension Refilled losartan 50 mg See Protocol PO DAILY 180 days 360 tabs 2RF I10 - Essential (primary) hypertension
== END 2024-06-14 11:31 | disposition home or self-care (01) ==
LOC: HO.HMCH 10:46
PROVIDERS: PCP Physician Assistant; Visit Provider Physician Assistant
DX: F41.1 Generalized anxiety disorder (principal)

== ENCOUNTER 2024-12-18 13:51 | Outpatient (AMB) | payer OTHER, SELFPAY ==
--- OUTSIDE RECORDS SUMMARY | 2024-07-04 04:30 | XMS_ITS ---
Author Organization [facility] Address [address] [place] [address] Care Team Providers Care Lime Kiln Worker Name Role Phone Juan Pablo Conteh Primary Care Provider Unavailab Althea Chan Unavailable [phone] Encounters Encounter Location Date Provider Diagnosis [facility] [address] [place] [address] 07/04/2024 Althea Maldonado Plan Of Treatment No Information Progress Notes * Brett SALDIVARDOB:1975 ([age] yo M)Acc No.[id number]:07/04/2024 Progress Notes Patient: Brett WHITE Provider: Abiola Maldonado DPM :1975 A ge:49 Y S ex:Male Date:07/04/2024 Address:[address] [place], [place] [id number] Pcp:Juan Pablo Conteh Subjective: * Chief Complaints: [...] 0 07/04/2024 Generated for Zenia barone/Ketty/Xuanitting on: 0 12/18/2024 03:10 PM EDT
--- OUTSIDE RECORDS SUMMARY | 2024-07-09 05:30 | XMS_ITS ---
Author Organization [facility] [place] Address [address] [place] [address] Care Team Providers Care Billing Department Supervisor Name Role Phone Juan Pablo Conteh Primary Care Provider UnavailAlthea Sullivan Unavailable [phone] Allergies Allergen (clinical drug ingredient) Drug/Non Drug [...] Negative Encounters Encounter Location Date Provider Diagnosis [facility] [address] [place] [address] 07/09/2024 Althea Maldonado Plan Of Treatment No Information Progress Notes * Brett SALDIVARDOB:1975 ([age] yo M)Acc No.[id number]:07/09/2024 Progress Notes Patient: Brett WHITE Provider: Abiola Maldonado DPM :1975 A ge:49 Y S ex:Male Date:07/09/2024 Address:[address] [place], [place] [id number] Pcp:Juan Pablo Conteh Subjective: * Chief Complaints: [...] 0 07/09/2024 Generated for Zenia Glass/Sony on: 0 12/18/2024 03:11 PM EDT
--- NOTE | 2024-12-18 14:18 | MHC.PC.OV ---
Vital Signs 12/18/24 14:20 12/18/24 14:43 Height 5 ft 6 in Weight 206 lb 6 oz BMI 33.3 BP 180/100 H 170/100 H Blood Pressure Location Lt brachial Position Sitting Pulse 97 Pulse Source Pulse Oximeter Temp 97.1 F Temp Source Temporal Artery Scan Pulse Oximetry (%) 99 Oxygen Delivery Method Room Air Intake Visit Reasons: 4 month f/u Intake Note: Patient is here to follow up on DM, COPD, HTN. Visual Developer Required: No Sow Farm Barn Technician: Not Required per policy Accompanied by: Self / Same As Patient Allergies Penicillins Allergy (Unknown, Verified 12/18/24 14:28) Unknown Medication List - Last Reconciled 12/18/24 by Juan Pablo Conteh PA-C albuterol sulfate 90 mcg/actuation 2 puffs inhalation QID blood sugar diagnostic (FreeStyle Lite Strips) QID blood sugar diagnostic (FreeStyle Lite Strips) tid prn sensor failure, confirm glucose blood-glucose meter (FreeStyle Lite Meter kit) 3 times daily prn sensor failure blood-glucose sensor (FreeStyle Carolin 3 Plus Sensor device) continous change every 15 days fluticasone propion-salmeterol 250-50 mcg/dose (Wixela Inhub) inhalation fluticasone propionate 50 mcg/actuation (Flonase Allergy Relief) 1 spray intranasal DAILY furosemide 20 mg PO DAILY 14 days insulin degludec (Tresiba FlexTouch U-200 insulin) 26 units (0.13 mL) subcut BEDTIME 90 days insulin lispro (Humalog KwikPen (U-100) Insulin) subcutaneously 3 to 4 times a day; 80-150 4 units 151-200 6 units 201-250 8 units 251-300 10 units over 300 12 units If scale is not working can increase by 2 units 90 days MDD 48 lancets 4 times daily lancets (Microlet Lancet) tid lancets (FreeStyle Lancets) 3 times a day prn sensor failure or to confirm glucose dispense as 32 g if available lancing device with lancets (Microlet 2 Lancing Device kit) tid losartan 50 mg See Protocol PO DAILY 90 days montelukast 10 mg PO BEDTIME 30 days omeprazole 20 mg PO DAILY pen needle, diabetic (Pen Needle) QID sertraline 25 mg PO DAILY 30 days Tobacco use date assessed: 12/18/24 Dental Screening Dental Screen Date: 04/04/24 HPI 4 month f/u HPI Details Patient is a 49-year-old male here today for follow-up visit. Patient has a past medical history significant for hypertension, anxiety, diabetes, hyperlipidemia . Concern--> The patient describes symptoms consistent with neuropathy, including numbness and tingling in his extremities, which he associates with his diabetes. He also reports episodes of numbness in his face and neck, raising concerns about possible cervical radiculopathy. .. Diabetes: Now followed by [facility]. Today's A1c at 9.1. Now has a CGM he reports sugars are up and down he admits to dietary indiscretion and has been trying to work on a lower carbohydrate diet. He does have bilateral lower extremity neuropathy associated with his diabetes .. HTN: The patient reports a history of hypertension, with recent blood pressure readings as high as 170/100 mmHg, which he acknowledges as concerning. He has not been taking his antihypertensive medications regularly, which he plans to resume. Fortunately he is asymptomatic without any chest discomfort, headaches or dizziness. He does have some nonspecific reports of paresthesias over the corner of his mouth and down his left arm .. Tachycardia: Patient continues to have slightly elevated heart rates 90s to 110s. Again will try to have him follow up with Cardiology. .. Anxiety: Patient is now talking to a mental health therapist which is working out well for him. He has stopped SSRI therapy due to baseline on his anxiety. He now has a new job that is much less stress for him which has this contributing to lowering hands anxiety [facility] Medical History Diabetes mellitus Anemia Diabetes 1.5, managed as type 2 Surgical History H/O oral surgery Family History Mother No problems noted. Father Stroke Social History Household Members: Significant Other Housing: House Do you presently have visiting nurse or other home services: No Alcohol intake: current Alcohol intake frequency: holidays/special occasions only Alcohol type: wine Patient Tobacco Use Status: Never used Tobacco Tobacco use type: Cigarette e-Cigarette/Vaping Use: Never Used Second Hand Smoke Exposure: No service: No Current occupational status: employed and unemployed Current occupational exposures/hazards: No Cognitive needs: No Hearing needs: No Vision needs: Yes Questionnaire Thrive Questionnaire Date Thrive assessed: 03/28/24 I am a: Patient What is your living situation today?: I have a steady place to live Within the past 12 months, did the food you bought not last and you didn't have the money to get more?: I choose not to answer this question Within the past 12 months, did you worry whether your food would run out before you got money to buy more?: I choose not to answer this question Do you have trouble paying for medicines?: No Do you have trouble getting transportation to medical appointments?: No Do you have trouble paying your heating and electricity bill?: No Do you have trouble taking care of your child, family member or friend?: No Do you have trouble with day-to-day activities such as bathing, preparing meals, shopping, managing finances, etc.?: No Are you currently unemployed and looking for a job?: No Are you interested in more education?: No Please select the resources that you would like help with: None Currently or been in a relationship where the following occur: No concerns reported THRIVE Score: 0 RIVER-7 AMB Questionnaire RIVER-7 Date RIVER - 7 assessed: 05/17/24 Source: Developed by Drs. Zain Cadet, Terrie Chauhan, Jorden Boudreaux and colleagues, with an educational ash from [employer]. Review of Systems Const Denies headache(s) Eyes Denies loss of vision ENT Denies vertigo, Denies dizziness, Denies headache(s) and Denies sore throat Card Denies chest pain, Denies leg edema and Denies lightheadedness Resp Denies cough, Denies hemoptysis and Denies wheezing GI Denies abdominal pain, Denies melena, Denies constipation, Denies diarrhea and Denies vomiting Denies dysuria, Denies urinary frequency and Denies urinary urgency Musc Denies arthralgias, Denies joint swelling, Denies numbness and Denies tingling Neuro Denies Abnormal speech present, Denies behavioral changes, Denies vertigo, Denies dizziness, Denies headache(s), Denies loss of vision, Denies memory loss, Denies numbness and Denies tingling Psych Denies anxiety, Denies behavioral changes, Denies depression, Denies memory loss and Denies panic attacks Roel/Lymph Denies easy bleeding and Denies easy bruising Aller/Immun Denies wheezing Physical exam (Primary Care) Vital Signs: Last Vital Signs Temp 97.1 F 12/18/24 14:20 Pulse 97 12/18/24 14:20 BP 170/100 H 12/18/24 14:43 Pulse Ox 99 12/18/24 14:20 Oxygen Delivery Method Room Air 12/18/24 14:20 Care Plan Goal for BP management: Will restart losartan 50 mg and continue to monitor blood pressure Next steps: Will consider increasing losartan dose to higher dose for better blood pressure control BMI result Body Mass Index 33.3 BMI Assessment/Plan discussion: High BMI High, discussed plan: lifestyle, weight reduction, dietary and physical activity Tobacco/Smoking Status: Tobacco use Status Tobacco use date assessed 12/18/24 12/18/24 14:26 Patient Tobacco Use Status Never used Tobacco 12/18/24 14:26 Tobacco use type Cigarette 12/18/24 14:26 e-Cigarette/Vaping Use Never Used 12/18/24 14:26 Thrive Assessment: Date of Thrive Assessment Date Thrive assessed 03/28/24 12/18/24 14:26 Currently or been in a relationship where the following occur: No concerns reported Const General: healthy appearing, no acute distress, alert and awake Nutritional Appearance: well nourished Orientation/consciousness: oriented to person, oriented to place and oriented to time HENMT Ears: TM's normal bilaterally General nose exam: Normal nasal mucous membranes and turbinates present Eyes Conjunctivae: conjunctivae normal Sclerae: sclerae normal Pupils: Equal, round and reactive pupils present Neck Neck: Yes no lymphadenopathy and Yes no JVD Thyroid: Thyroid normal Carotids: no bruits Resp Effort & Inspection: normal respiratory effort and not tachypneic Auscultation: no crackles, no rales, no rhonchi and no wheezes Cardio Rate: regular rate Rhythm: regular rhythm Heart sounds: no murmurs and normal S1 and S2 GI Palpation (GI): Soft to palpation, nontender, no hepatomegaly and no splenomegaly Auscultation: normal bowel sounds Skin General skin exam: no rashes or lesions noted and dry skin Neuro General: oriented to person, oriented to place and oriented to time Cranial nerves: Yes Equal, round and reactive pupils present Speech: No Abnormal speech present Gait exam (Neuro): Normal gait present Motor exam (neuro): no tremor noted Extrem Right upper extremity: full ROM Left upper extremity: full ROM Right lower extremity: full ROM; no edema Left lower extremity: full ROM; no edema Psych Mental Status: mental status grossly normal Speech and movement: Normal speech and movement present Affect: normal affect Attitude: cooperative Thought process: Normal thought process present Results AMB Hemoglobin A1c AMB Hemoglobin A1c 9.1 % Last Edit by CONG Anderson on 12/18/24 14:34 Results Reviewed Results Reviewed: Laboratory Last Values Hgb A1c (Clinic) 9.1 % (4.0-6.0) H 12/18/24 14:18 Coding Level of Care Code Est Pt Level 4 (69023) Diagnoses Type 2 diabetes mellitus with diabetic polyneuropathy, with long-term current use of insulin E11.42; Z79.4 Diabetes mellitus complication detail: with polyneuropathy Diabetes mellitus complication status: with neurologic complications Diabetes mellitus longitudinal float operator insulin use: with chcf use Diabetes mellitus type: type 2 Focal neurological deficit R29.818 Primary hypertension I10 Hypertension type: primary hypertension Simple chronic bronchitis J41.0 COPD type: chronic bronchitis Chronic bronchitis type: simple RIVER (generalized anxiety disorder) F41.1 Cervical radiculopathy M54.12 Left hand paresthesia R20.2 Post-nasal drainage R09.82 Class 1 obesity E66.811 Assessment & Plan Assessment & Plan (1) Diabetes mellitus: Code(s): E11.9 - Type 2 diabetes mellitus without complications Category: Medical Qualifiers: Diabetes mellitus complication detail: with polyneuropathy Diabetes mellitus complication status: with neurologic complications Diabetes mellitus longitudinal float operator insulin use: with chcf use Diabetes mellitus type: type 2 Qualified Code(s): E11.42 - Type 2 diabetes mellitus with diabetic polyneuropathy; Z79.4 - senior living (current) use of insulin Plan: Patient has uncontrolled type 2 diabetes. Today's A1c is 9.1. He does report having dietary indiscretion Has been working with [facility] about this. He insulin doses has been increased recently. He has been using a continues glucose monitor though had some trouble with the sensors following off. Goal A1c is to be below 7.0 (2) Focal neurological deficit: Code(s): R29.818 - Other symptoms and signs involving the nervous system Category: Medical Plan: Patient expresses some concern of intermittent numbness and tingling over the left side of his face and his left arm. Signs and symptoms concerning for nerve impingement perhaps in the neck with the left upper extremity. Will send for nerve testing left upper extremity and neck x-ray (3) Hypertension: Code(s): I10 - Essential (primary) hypertension Category: Medical Qualifiers: Hypertension type: primary hypertension Qualified Code(s): I10 - Essential (primary) hypertension Plan: Blood pressure uncontrolled at this time . The patient will resume taking losartan to manage his hypertension, given the recent elevated blood pressure readings. He is advised to monitor his blood pressure at home and report any concerning readings. Goal blood pressure to remain below 140/90 (4) COPD (chronic obstructive pulmonary disease): Code(s): J44.9 - Chronic obstructive pulmonary disease, unspecified Category: Medical Qualifiers: COPD type: chronic bronchitis Chronic bronchitis type: simple Qualified Code(s): J41.0 - Simple chronic bronchitis Plan: Patient continues to have some chest congestion. He is a former smoker for 20 years. He did have a hospitalization for bad COVID infection in January of 2024. It appears he may have an diagnosis of COPD and thus he with has been started on Wixela recently which may help. Will try to set him up with pulmonology for pulmonary evaluation some pulmonary function testing. (5) RIVER (generalized anxiety disorder): Code(s): F41.1 - Generalized anxiety disorder Category: Medical Plan: Patient reports his anxiety has been a bit better since speaking with a mental health therapist. He has stopped SSRI therapy. (6) Cervical radiculopathy: Code(s): M54.12 - Radiculopathy, cervical region Category: Medical Plan: The patient will undergo an x-ray of the cervical spine to investigate the cause of his neuropathy symptoms and possible cervical radiculopathy. Physical therapy is recommended to address potential nerve impingement. (7) Left hand paresthesia: Code(s): R20.2 - Paresthesia of skin Category: Medical Plan: Will try to set patient up for nerve testing in the left upper extremity evaluate for nerve entrapment in the elbow or wrist. (8) Post-nasal drainage: Code(s): R09.82 - Postnasal drip Category: Medical Plan: The patient is advised to use a nasal spray to manage postnasal drip symptoms. (9) Class 1 obesity: Code(s): E66.811 - Obesity, class 1 Category: Medical Plan: Patient does understand his BMI is over 30 will continue working on being more physically active and adapting to better eating habits to reduce his weight Orders: Orders AMB Hemoglobin A1c 12/18/24 E13.9 - Other specified diabetes mellitus without complications Comprehensive [place]. Panel Fast 12/18/24 E13.9 - Other specified diabetes mellitus without complications XR cervical spine 3V 12/18/24 M54.12 - Radiculopathy, cervical region Lipid Panel 12/18/24 E11.42 - Type 2 diabetes mellitus with diabetic polyneuropathy, Z79.4 - senior living (current) use of insulin Complete Blood Count no Diff 12/18/24 E13.9 - Other specified diabetes mellitus without complications Microalbumin, Random (w Creat) 12/18/24 I10 - Essential (primary) hypertension IRON PROFILE 12/18/24 D50.9 - Iron deficiency anemia, unspecified, D64.9 - Anemia, unspecified NE electromyogram (EMG) 12/18/24 R20.2 - Paresthesia of skin NE nerve conduction velocity 12/18/24 R20.2 - Paresthesia of skin Medications: New sodium chloride 0.65% ([place] Saline) 1 spray intranasal BID PRN 50 mL 0RF dry nasal passages 4 weeks R09.82 - Postnasal drip Discontinued furosemide Discontinued Reason: Doctor's Order 20 mg PO DAILY 14 days 14 tabs 0RF R06.02 - Shortness of breath sertraline Discontinued Reason: Doctor's Order 25 mg PO DAILY 30 days 30 tabs 1RF F41.1 - Generalized anxiety disorder fluticasone propionate 50 mcg/actuation (Flonase Allergy Relief) administer into each nostril Discontinued Reason: Doctor's Order 1 spray intranasal DAILY 16 grams 1RF T78.40XD - Allergy, unspecified, subsequent encounter
[2024-12-18 14:20] VITALS: BP 180/100; PULSE 97; TEMP 36.2; O2SAT 99; BMI 33.3
[2024-12-18 14:43] VITALS: BP 170/100
--- OUTSIDE RECORDS SUMMARY | 2024-12-18 15:11 | XMS_ITS | Encounter Summary ---
Author Organization [employer] Address [address] [place] [address] Care Team Providers Care Complaint Specialist Name Role Phone Gianna Vazquez MD Primary Care Provider [phone] Reason for Visit * Reason Onset Date Comments triage 02/23/2022 Encounter Details Date Type Department Care Team ([facility] st Contact Info) Description 02/23/2022 Telephone [facility] [address] [place], [place] [phone] Gianna Vazquez MD [address] [place] [address] triage Social History Tobacco Use Types Packs/Day [...] appt. Pt agree to be see at [facility]. Per protocol. Protocol Used: Face Swelling (Adult) [...] accepted this outcome Please contact pt at [phone] documented in this encounter Plan of Treatment Not on file documented as of this encounter Visit Diagnoses Not on filedocumented in this encounter Care Teams Complaint Specialist Relationship Specialty Start Date End Date Gianna Vazquez MD [address] [place] [id number] PCP - General Family Medicine 06/30/20 11/09/22 documented as of this encounter
--- OUTSIDE RECORDS SUMMARY | 2024-12-18 15:11 | XMS_ITS | Encounter Summary ---
Author Organization [employer] Address [address] [place] [address] Care Team Providers Care It Specialist Name Role Phone Gianna Vazquez MD Primary Care Provider [phone] Encounter Details Date Type Department Care Team (Late st Contact Info) Description 06/18/2022 Orders Only [facility] [address] [place] [address] Charley Fernando LPN Social History Tobacco Use [...] on filedocumented in this encounter Care Teams It Specialist Relationship Specialty Start Date End Date Gianna Vazquez MD [address] [place] [id number] PCP - General Family Medicine 06/30/20 11/09/22 documented as of this encounter
--- OUTSIDE RECORDS SUMMARY | 2024-12-18 15:11 | XMS_ITS | Clinical Summary ---
Author Organization [employer] Address [address] [facility] [address] [place] [address] Care Team Providers Care Palliative Care Specialist Name Role Phone Unavailable Primary Care Provider [...] affected eye(s) 4 times daily. 4 Active Active Problems Problem Noted Date Diagnosed Date Hypertriglyceridemia 07/08/2023 Erectile dysfunction due to type 2 diabetes baron itus 07/02/2020 Foot pain 07/02/2020 Type 2 diabetes mellitus 07/02/2020 Immunizations Immunization Administration Dates Next Due Tdap 07/30/2016,12/30/2010 Social [...] 110 07/08/2023 11:42 AM EDT Temperature 37.1 C (98.7 F) 07/08/2023 11:42 AM EDT Respiratory Rate 18 07/08/2023 11:42 AM EDT [...] Screening 1973 SDOH Screening 1973 Sigmoidoscopy 1973 Disability Screening 1973 Diabetes: Foot Exam 1983 Eye Exam 1983 Alcohol/Substance Use Screening 1985 Family Planning (PISQ) 02/13/1988 Hepatitis C Screening 1991 Diabetes: Urine Protein Screening 02/13/1992 Hepatitis B Vaccines (1 of 3 - 19+ 3-dose series) 02/13/1992 Pneumococcal Vaccine: 50+ Years (1 of 2 - PCV) 02/13/1992 Diabetes: Hemoglobin A1C 09/30/2020 07/01/2020 Lipid Panel 07/01/2021 07/01/2020 Zoster Vaccines (1 of 2) 2023 Tobacco Screening 07/07/2024 07/08/2023 COVID-19 Vaccine (1 - 2023-2 5 season) 2024 Influenza Vaccine (#1) 2024 DTaP/Tdap/Td Vaccines (3 - T d or [...] patient's age to complete this topic Meningococcal B Vaccine Aged Out No l onger eligible based on patient's age to complete [...] A1c 12.2(H) <5.7 % of total Hgb [facility] Comment: For someone without known diabetes, a hemoglobin A1c value of 6.5% or greater indicates that they may have diabetes and this should be confirmed with a follow-up test. For someone with known diabetes, a value <7% indicates that their diabetes is well controlled and a value greater than or equal to 7% indicates suboptimal control. A1c targets should be individualized based on duration of diabetes, age, comorbid conditions, and other considerations. Currently, no consensus exists regarding use of hemoglobin A1c for diagnosis of diabetes for children. 07/01/2020 2:18 PM EDT us Gianna Vazquez MD LAB BLOOD ORDERABLES Final Res ult [facility] [address] [place] [address], * (ABNORMAL) LIPID PANEL, STANDARD (07/01/2020 2:18 PM EDT) Chol/HDLC Ratio 5.7(H) <5.0 (calc) [facility] Cholesterol, Total 177 <200 mg/dL [facility] HDL Cholesterol 31(L) > OR = 40 mg/dL [facility] LDL Cholesterol SEE COMMENT mg/dL (calc) [facility] Comment: LDL cholesterol not calculated. Triglyceride levels greater than 400 mg/dL invalidate calculated LDL results. Reference range: <100 Desirable range <100 mg/dL for primary prevention; <70 mg/dL for patients with CHD or diabetic patients with > or = 2 CHD risk factors. LDL-C is now calculated using the Jose-Adair calculation, which is a validated novel method providing better accuracy than the Friedewald equation in the estimation of LDL-C. Jose SS et al. CIPRIANO. 2013;310(19): 4846-4422 (http://education.DineInTime.[employer]/faq/EHJ971) Non-HDL Cholesterol 146(H) <130 mg/dL (calc) [facility] Comment: For patients with diabetes plus 1 major ASCVD risk factor, treating to a non-HDL-C goal of <100 mg/dL (LDL-C of <70 mg/dL) is considered a therapeutic option. Triglycerides 504(H) <150 mg/dL [facility] Comment: If a non-fasting specimen was collected, consider repeat triglyceride testing on a fasting specimen if clinically indicated. Martinez et al. J. of Clin. Lipidol. 2015;9:129-169. There is increased risk of pancreatitis when the triglyceride concentration is very high (> or = 500 mg/dL, especially if > or = 1000 mg/dL). Martinez et al. J. of Clin. Lipidol. 2015;9:129-169. 07/01/2020 2:18 PM EDT us Gianna Vazquez MD LAB BLOOD ORDERABLES Final Res ult [facility] [address] from Last 3 Months or Most Recently Relevant to Health Maintenance Insurance [facility] C3 HSN FULL
--- OUTSIDE RECORDS SUMMARY | 2024-12-18 15:11 | XMS_ITS | Encounter Summary ---
Author Organization [employer] Address [address] [facility] [address] [place] [address] Care Team Providers Care Lumber Hacker Name Role Phone Unavailable Primary Care Provider Unavailabl e Reason for Visit * Reason Comments Med Refill Encounter Details Date Type Department Care Team ([facility] st Contact Info) Description 10/29/2023 Refill [facility] [address] [place] [address] Charley Mendez DO [address] [place] [address] Social History Tobacco Use Types Packs/Day Years [...]
--- OUTSIDE RECORDS SUMMARY | 2024-12-18 15:11 | XMS_ITS | Patient Health Record ---
[facility] godfrey [place] Address [address] [place] [address] Care Team Providers Care Prototype Deicer Assembler Name Role Phone Juan Pablo Conteh Primary Care Provider Althea Mcgovern Unavailable [phone] Allergies Allergen (clinical drug ingredient) Drug/Non Drug Allergy documented on EMR Reaction Allergy Type Onset Date Status Penicillin Unknown Drug Allergy Active Reason For Referral No Information Medications Medication SIG (Take, Route, Fr equency, [...] Negative Encounters Encounter Location Date Provider Diagnosis [facility] [address] [place] [address] 05/03/2024 Althea Maldonado [facility] [address] [place] [address] 06/18/2024 Althea Maldonado Plan Of Treatment No Information Insurance Providers Payer Name Payer Address Payer Phone Subscriber Number Group Number Insured Name Patient Relationship to Insured Coverage Start Date Coverage End Date [facility] [address] [facility] [id number] Brett Saldivar Self - patient is the insured Medical (General) History Medical History History ICD Code Anemia Diabetic HTN Tachycardia Hematemesis Post-nasal Drip Surgical History Surgery Date(Month/Year) oral surgery
== END 2024-12-18 15:05 | disposition home or self-care (01) ==
LOC: HO.HMCH 13:52
PROVIDERS: PCP Physician Assistant; Visit Provider Physician Assistant
DX: E13.9 Other specified diabetes mellitus without complications (principal)

== ENCOUNTER → 2024-12-18 13:51 | Outpatient (BNVA) | payer OTHER, SELFPAY | PROVIDERS: PCP Physician Assistant; Visit Provider Physician Assistant | DX: I10 Essential (primary) hypertension (principal); E11.42 Type 2 diabetes mellitus with diabetic polyneuropathy; R00.0 Tachycardia, unspecified; F41.9 Anxiety disorder, unspecified; R29.818 Other symptoms and signs involving the nervous system; J41.0 Simple chronic bronchitis; F41.1 Generalized anxiety disorder; M54.12 Radiculopathy, cervical region; R20.2 Paresthesia of skin; R09.82 Postnasal drip; E66.811 Obesity, class 1; D50.9 Iron deficiency anemia, unspecified; Z68.33 Body mass index [BMI] 33.0-33.9, adult | CPT/HCPCS: 83036; 99212 ==

== ENCOUNTER 2025-01-29 08:01 | Outpatient (REF) | payer OTHER, SELFPAY ==
--- OUTSIDE RECORDS SUMMARY | 2024-07-04 03:30 | XMS_ITS ---
Author Organization [facility] Address [address] [place] [address] Care Team Providers Care Floor Coverer Name Role Phone Juan Pablo Conteh Primary Care Provider Unavailab Althea Chan Unavailable [phone] Encounters Encounter Location Date Provider Diagnosis [facility] [address] [place] [address] 07/04/2024 Althea Maldonado Plan Of Treatment No Information Progress Notes * Brett SALDIVARDOB:1975 ([age] yo M)Acc No.[id number]:07/04/2024 Progress Notes Patient: Brett WHITE Provider: Abiola Maldonado DPM :1975 A ge:49 Y S ex:Male Date:07/04/2024 Address:[address] [place], [place] [id number] Pcp:Juan Pablo Conteh Subjective: * Chief Complaints: * * Medical History: Objective: * Vitals: Assessment: Plan: * Treatment: * Images: * The named appointment provid er may or may not be the originator of this progress note, and it is not deemed complete until electronically signed by the appointment provider. Sign off status: Pending * Provider: Abiola Maldonado DPM Date: 0 07/04/2024 Generated for Zenia barone/Ketty/Xuanitting on: 03/31/2024 08:04 AM EST
--- OUTSIDE RECORDS SUMMARY | 2024-07-09 04:30 | XMS_ITS ---
Author Organization [facility] [place] Address [address] [place] [address] Care Team Providers Care Can Washer Name Role Phone Juan Pablo Conteh Primary Care Provider UnavailAlthea Sullivan Unavailable [phone] Allergies Allergen (clinical drug ingredient) Drug/Non Drug Allergy documented on EMR Reaction Allergy Type Onset Date Status Penicillin Unknown Drug Allergy Active Medications Medication SIG (Take, Route, Fr equency, Duration) Notes Start Date End Date Status Omeprazole Active Losartan Potassium A ctive Lantus SoloStar Acti ve glipiZIDE Active FreeStyle Lite Test Active Fluticasone Propionate Active Social History Tobacco use other than smoking: [...] Negative Encounters Encounter Location Date Provider Diagnosis [facility] [address] [place] [address] 07/09/2024 Althea Maldonado Plan Of Treatment No Information Progress Notes * Brett SALDIVARDOB:1975 ([age] yo M)Acc No.[id number]:07/09/2024 Progress Notes Patient: Brett WHITE Provider: Abiola Maldonado DPM :1975 A ge:49 Y S ex:Male Date:07/09/2024 Address:[address] [place], [place] [id number] Pcp:Juan Pablo Conteh Subjective: * Chief Complaints: * * Medical History: A nemia, Diabetic, HTN, Tachycardia, Hematemesis, Post-nasal Drip. * Surgical History: o ral surgery . * Family History: M other: . F ather: diagnosed with Unspecified cerebral artery occlusion with cerebral infarction. * Social History: T obacco Use: T obacco use other than smoking A re you an other tobacco user? N o D rug/Alcohol: A RADHA-C (Standard) D id you have a drink containing alcohol in the past year? Y es H ow often did you have a drink containing alcohol in the past year? N ever (0 point) H ow many drinks did you have on a typical day when you were drinking in the past year? 1 or 2 drinks (0 point) H ow often did you have six or more drinks on one occasion in the past year? N ever (0 point) P oints 0 I nterpretation N egative * Medications: T aking Fluticasone Propionate , Taking FreeStyle Lite Test , Taking glipiZIDE , Taking Lantus SoloStar , Taking Losartan Potassium , Taking Omeprazole , Discontinued Mucinex , Discontinued Fluconazole , Discontinued HumaLOG KwikPen * Allergies: P enicillin. Objective: * Vitals: Assessment: Plan: * Treatment: * Images: * The named appointment provid er may or may not be the originator of this progress note, and it is not deemed complete until electronically signed by the appointment provider. Sign off status: Pending * Provider: Abiola Maldonado DPM Date: 0 07/09/2024 Generated for Zenia Glass/Sony on: 03/31/2024 08:04 AM EST
--- OUTSIDE RECORDS SUMMARY | 2025-01-29 08:04 | XMS_ITS | Data Portability ---
Author Organization [facility], [address] Address [address] [place] [address] Assessment No assessment recorded. Plan of Treatment [...] Diagnosis SNOMED-CT Code Diagnosis ICD10 Code Diagnosis IMO Codes Diagnosis Note [id number] [address] [facility] [address] [place] [phone] 09/07/2018 10:50:09 09/07/2018 11:28:41 [id number] 20994_[facility] 20994_[facility] [address] [place] [address] 07/24/2020 08:14:08 07/24/2020 09:11:00 [id number] [address] [facility] [address] [place] [address] 09/21/2019 08:16:28 09/21/2019 08:52:04 [id number] [address] [facility] [address] [place] [address] 08/21/2018 08:34:28 08/21/2018 09:44:22 [id number] [address] [place] [address] 11/07/2018 13:00:55 11/07/2018 14:01:32 [id number] [address] [place] [address] 12/19/2018 17:29:28 12/19/2018 18:19:27 [id number] [address] [place] [address] 01/15/2018 19:42:49 01/15/2018 20:04:11 [id number] [address] [place] [address] 11/23/2017 16:38:47 11/23/2017 17:15:18 Health Concerns Section Related Observation LastModified by Organization Detai ls LastModified Time None Recorded Concern Status LastModified by Organization Details LastModified Time None Recorded Advance Directives Directive None Recorded Payers Insurance Date Sequence Insurance Name Policy Number Policy Valladares Covered Member ID Valladares Member ID Guarantor Name 05/19/2024 1 [facility] [id number] Brett Saldivar [id number] Brett Saldivar 05/19/2024 1 [facility] [id number] Brett Saldivar [id number] Brett Saldivar
--- OUTSIDE RECORDS SUMMARY | 2025-01-29 08:04 | XMS_ITS | Encounter Summary ---
Author Organization [employer] Address [address] [place] [address] Care Team Providers Care Materials Development Engineer Name Role Phone Gianna Vazquez MD Primary Care Provider [phone] Reason for Visit * Reason Onset Date Comments triage 02/23/2022 Encounter Details Date Type Department Care Team ([facility] st Contact Info) Description 02/23/2022 Telephone [facility] [address] [place], [place] [phone] Gianna Vazquez MD [address] [place] [address] triage Social History Tobacco Use Types Packs/Day [...] appt. Pt agree to be see at [facility]. Per protocol. Protocol Used: Face Swelling (Adult) [...] accepted this outcome Please contact pt at [phone] documented in this encounter Plan of Treatment Not on file documented as of this encounter Visit Diagnoses Not on filedocumented in this encounter Care Teams Materials Development Engineer Relationship Specialty Start Date End Date Gianna Vazquez MD [address] [place] [id number] PCP - General Family Medicine 06/30/20 11/09/22 documented as of this encounter
--- OUTSIDE RECORDS SUMMARY | 2025-01-29 08:04 | XMS_ITS | Patient Health Record ---
[facility] Laura godfrey [place] Address [address] [place] [address] Care Team Providers Care Hand Clerical Verifier Name Role Phone Juan Pablo Conteh Primary Care Provider Althea Mcgovern Unavailable [phone] Allergies Allergen (clinical drug ingredient) Drug/Non Drug [...] Negative Encounters Encounter Location Date Provider Diagnosis [facility] [place] [address] [place] [address] 05/03/2024 Althea Maldonado [facility] [address] [place] [address] 06/18/2024 Althea Maldonado Plan Of Treatment No Information Insurance Providers Payer Name Payer Address Payer Phone Subscriber Number Group Number Insured Name Patient Relationship to Insured Coverage Start Date Coverage End Date [facility] [address] [facility] [address] [phone] [id number] Brett Saldivar Self - patient is the insured Medical (General) History Medical History History ICD Code Anemia Diabetic HTN Tachycardia Hematemesis Post-nasal Drip Surgical History Surgery Date(Month/Year) oral surgery
--- OUTSIDE RECORDS SUMMARY | 2025-01-29 08:04 | XMS_ITS | Clinical Summary ---
Author Organization [employer] Address [address] [place] [address] Care Team Providers Care Instructional Developer Name Role Phone Unavailable Primary Care Provider [...] A1c 12.2(H) <5.7 % of total Hgb [facility] Comment: For someone without known [...] Res ult [facility] [address] [place] [address], * (ABNORMAL) LIPID PANEL, STANDARD (07/01/2020 2:18 [...] LDL-C. Jose SS et al. CIPRIANO. 2013;310(19): 0567-0797 (http://education.dentalDoctors.Arts & Analytics/faq/JWK405) Non-HDL Cholesterol 146(H) <130 mg/dL (calc) [facility] [...] MD LAB BLOOD ORDERABLES Final Res ult [facility] [address] from Last 3 Months or Most Recently Relevant to Health Maintenance Insurance [facility] C3 HSN FULL
--- OUTSIDE RECORDS SUMMARY | 2025-01-29 08:04 | XMS_ITS | Encounter Summary ---
Author Organization [employer] Address [address] [place] [address] Care Team Providers Care Trading Floor Operator Name Role Phone Unavailable Primary Care Provider Unavailabl e Reason for Visit * Reason Comments Med Refill Encounter Details Date Type Department Care Team ([facility] st Contact Info) Description 10/29/2023 Refill [facility] [address] [place] [address] Charley Mendez DO [address] [place] [address] Social History Tobacco Use Types Packs/Day Years [...]
--- OUTSIDE RECORDS SUMMARY | 2025-01-29 08:04 | XMS_ITS | Encounter Summary ---
Author Organization [employer] Address [address] [place] [address] Care Team Providers Care Wool Washer Feeder Name Role Phone Gianna Vazquez MD Primary Care Provider [phone] Encounter Details Date Type Department Care Team (Late st Contact Info) Description 06/18/2022 Orders Only [facility] [address] [place] [address] Charley Fernando LPN Social History Tobacco Use [...] on filedocumented in this encounter Care Teams Wool Washer Feeder Relationship Specialty Start Date End Date Gianna Vazquez MD [address] [place] [address] PCP - General Family Medicine 06/30/20 11/09/22 documented as of this encounter
--- NOTE | 2025-01-29 08:05 | EMG_ITS ---
Chief complaint: Left hand numbness and tingling Reason for referral: R20.0 Paresthesia of left hand Referred by: JAMI Rangel Procedure done: NCS and EMG of left upper extremity Left median and ulnar motor studies were performed. Left median and ulnar mixed sensory studies, median and lateral antecubital brachial sensory studies and radial sensory study was performed. EMG was performed. Findings: Median motor distal latencies was moderately prolonged. Median mixed sensory studies revealed no response. Similar pattern was noted with ulnar mixed sensory radial sensory and lateral antecubital brachial sensory. Ulnar motor study revealed moderate slowing across elbow. 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
== END 2025-01-29 08:02 | disposition home or self-care (01) ==
LOC: HO.NEURO 08:01
PROVIDERS: PCP Physician Assistant; Visit Provider Physician Assistant
DX: R20.2 Paresthesia of skin (principal); R20.0 Anesthesia of skin
CPT/HCPCS: 95886; 95910

== ENCOUNTER → 2025-01-29 08:05 | Outpatient (BNV) | payer OTHER, SELFPAY | PROVIDERS: PCP Physician Assistant; Visit Provider Psychiatry & Neurology Neurology | DX: G62.89 Other specified polyneuropathies (principal) | CPT/HCPCS: 95886; 95910 ==